=== PATIENT | male | born 1950 | race Hispanic/Latino ===

== ENCOUNTER 2020-02-25 03:29 | Observation (INO) | payer MEDICARE, OTHER ==
[~2020-02-25] VITALS: Ht 172.7 cm; Wt 91.6 kg
--- NOTE | 2020-02-25 03:34 | Emergency Department Note ---
History of Present Illnes History of Present Illness Chief Complaint: Respiratory History of Present Illness This is a 69 year old male returns to the ED for continued CP and SOB. Tanner gonsalez seen 02/22/2020 for same issue . Historian: Patient, Family Member Arrival Mode: Car History limited by: language barrier Veterinarian Assistant Required: Yes Onset (how long ago): day(s) (3) Radiation: Reports non-radiation Severity: moderate Onset quality: gradual Duration (how long): day(s) (3) Timing of current episode: constant Progression: worsening Chronicity: new Context: Reports recent illness Relieving factors: none Exacerbating factors: none Associated symptoms: Reports shortness of breath Previous service: re-evaluation Past Medical/Family History Physician Review I have reviewed the patient's past medical and family history. Any updates have been documented here. Past Medical History Recent Fever: Yes Clinical Suspicion of Infectio: Yes New/Unexplained Change in Ment: No Past Medical History: None Past Surgical History: None Social History Smoking Cessation: Never Smoker Alcohol Use: None Review of Systems Review of Systems Constitutional: Denies fever EENTM: Reports no symptoms Cardiovascular: Denies chest pain Respiratory: Reports dyspnea Gastrointestinal: Reports no symptoms Genitourinary: Reports no symptoms Musculoskeletal: Reports no symptoms Integumentary: Reports no symptoms Neurological: Reports no symptoms Psychological: Reports no symptoms Endocrine: Reports no symptoms Hematological/Lymphatic: Reports no symptoms Physical Exam Related Data Allergies: Coded Allergies: No Known Allergies (Unverified , 02/25/20) Vital signs reviewed: Yes Physical Exam CONSTITUTIONAL Constitutional: Present diaphoretic, Present ill appearing HENT HENT: Present normocephalic, Present atraumatic, Present oropharynx cl ear/moist, Present nose normal HENT L/R: Present left ext ear normal, Present right ext ear normal EYES Eyes: Reports PERRL, Reports conjunctivae normal NECK Neck: Present ROM normal PULMONARY Pulmonary: Present effort normal, Present breath sounds normal CARDIOVASCULAR Cardiovascular: Present regular rhythm, Present heart sounds normal, Present capillary refill normal, Present normal rate, Present bradycardia GASTROINTESTINAL Abdominal: Present soft, Present nontender, Present bowel sounds normal GENITOURINARY Genitourinary: Present exam deferred SKIN Skin: Present warm, Present dry MUSCULOSKELETAL Musculoskeletal: Present ROM normal NEUROLOGICAL Neurological: Present alert, Present oriented x 3, Present no gross motor or sensory deficits PSYCHOLOGICAL Psychological: Present mood/affect normal, Present judgement normal Results Laboratory Lab results reviewed: Yes Imaging Imaging results reviewed: Yes Impressions [place] [id number] [place] [id number] Patient Name: HARMAN MUNIZ MR #: [id number] : 1950 Age/Sex: 69/M Req #: [id number] Adm Physician: Ordered by: FREDDY RAMIREZ DO Report #: [id number] Location: Room/Bed: Procedure: [id number] CT/CT BRAIN WO Exam Date: 02/25/20 Exam Time: 419 REPORT STATUS: Signed EXAMINATION: Head CT without contrast. HISTORY:Headache. COMPARISON:None. TECHNIQUE: Multidetector axial images were obtained from the foramen magnum to the vertex without contrast. The images were reconstructed using brain and bone algorithms. Thin section brain images were reformatted into coronal and sagittal planes. Dose modulation, iterative reconstruction, and/or weight based adjustment of the mA/kV was utilized to reduce the radiation dose to as low as reasonably achievable. Intravenous contrast: None IMAGE QUALITY: Suboptimal evaluation particularly at the level of skull base and posterior fossa structures due to streak artifacts. FINDINGS: Skull/scalp: No lytic or blastic. lesions. No surgical changes. Parenchyma: Nonspecific few, scattered supratentorial white matter hypodensity are likely related to small vessel ischemic changes. No acute hemorrhage, mass or acute major vascular territorial infarct. Arteries: No density suggestive of thrombosis. Dural sinuses: No abnormal density suggestive of thrombosis. Ventricles: No hydrocephalus or displacement. Extra-axial spaces: No abnormal density. Brain volume: Mild generalized cerebral volume loss. Craniocervical junction: No mass, Chiari malformation, or basilar invagination. Sella: No mass. Paranasal/mastoid sinuses: Imaged portions unremarkable. IMPRESSION: No acute intracranial abnormality. Mild supratentorial white matter microvascular ischemic changes. Mild generalized cerebral volume loss. Signed by: Dr. Leonela Murcia M.D. on 02/25/2020 5:36 AM Dictated By: LEONELA MURCIA MD 5 Transcribed By: CHUCKY on 02/25/20535 COPY TO: FREDDY RAMIREZ DO~ [place] [address] Patient Name: HARMAN MUNIZ MR #: [id number] : 1950 Age/Sex: 69/M Req #: [id number] Adm Physician: Ordered by: FREDDY RAMIREZ DO Report #: [id number] Location: ER Room/Bed: Procedure: [id number] DX/CHEST SINGLE (PORTABLE) Exam Date: Exam Time: REPORT STATUS: Signed EXAMINATION: CHEST SINGLE (PORTABLE) INDICATION: ^Y ^SOB COMPARISON: None FINDINGS: AP view TUBES and LINES: None. LUNGS: Lungs are well inflated. There is no evidence of pneumonia or pulmonary edema. PLEURA: No pleural effusion or pneumothorax. HEART AND MEDIASTINUM: The cardiomediastinal silhouette is unremarkable. BONES AND SOFT TISSUES: No acute osseous lesion. Soft tissues are unremarkable. UPPER ABDOMEN: No free air under the diaphragm. IMPRESSION: No acute thoracic abnormality. Signed by: Dr. Paul Turk MD on 02/25/2020 5:12 AM Dictated By: PAUL TURK MD 1 Transcribed By: CHUCKY on 02/25/20511 COPY TO: FREDDY RAMIREZ DO~ Procedures 12 Lead ECG Interpretation ECG Interpretation : ECG: ECG 1 Veterinarian Assistant: Interpreted by ED physician Date: Feb 25, 2020 Time: 03:58 Prior ECG tracings: reviewed Rhythm: sinus bradycardia Rate: bradycardia BPM: 52 Conduction: right bundle branch block ST segments normal: Yes T waves normal: No T waves flattening: V1 Clinical Impression: non-specific ECG Additional Comments unchanged from prior 2 ekgs Assessment & Plan Medical Decision Making MDM 69 yom presents with CP and dyspnea. CBC, CMP, Cardiac enzymes,EKG CXR to evaluate for PTX, PNA, CHF, ACS, and COVID-19 URI. Assessment & Plan Final Impression: (1) Dyspnea Depart Disposition: ADMITTED FREDDY RAMIREZ Feb 25, 2020 03:34
[2020-02-25] MEDS ORDERED: ASPIRIN 81 MG CHEW TAB PO ONE ×2 (03:45→05:30)
[2020-02-25 04:20] LABS: BASOPHILS % 0.5 % (0.0-1.0); EOSINOPHILS # (AUTO) 0.1 (0.0-0.4); EOSINOPHILS % 2.1 % (0.0-6.0); HEMATOCRIT 44.2 % (38.2-49.6); HEMOGLOBIN 15.1 g/dL (14.0-18.0); LYMPHOCYTES # (AUTO) 1.7 (1.0-3.2); LYMPHOCYTES % 30.4 % (18.0-39.1); MEAN CORPUSCULAR HEMOGLOBIN 30.6 pg (28-32); MEAN CORPUSCULAR HGB CONC 34.2 g/dL (31-35); MEAN CORPUSCULAR VOLUME 89.5 fL (81-99); MONOCYTES # (AUTO) 0.5 (0.2-0.8); NEUTROPHILS # (AUTO) 3.3 (2.1-6.9); NEUTROPHILS % 58.6 % (38.7-80.0); PLATELET COUNT 183 x10e3/uL (140-360); RED BLOOD COUNT 4.94 x10e6/uL (4.3-5.7); RED CELL DISTRIBUTION WIDTH 12.3 % (11.7-14.4)
--- OUTSIDE RECORDS SUMMARY | 2020-02-25 04:28 | XMS REPORT | Clinical Summary ---
Author Author [facility] Organization [facility] Address Unknown Phone Unavailable Care Team Providers Care Public Address Technician Name Role Phone PCP Unavailable Allergies No Known Allergies Medications End Date Status Medication Sig Dispensed Refills Start Date Active ibuprofen (MOTRIN) 800 mg Take 1 tablet 60 tablet 2 tabletIndications: by mouth 4 Cholesteatoma of left every 8 hours ear, H/O mastoidectomy, as needed for Otorrhea Pain. Active HYDROcodone-acetaminophen Take 2 120 tablet 0 (NORCO) 5-325 mg tablets by 4 tabletIndications: mouth every 4 Hearing loss hours as needed for Pain. Active naproxen (NAPROSYN) 375 Take 1 tablet 60 tablet 0 06/22/201 mg tabletIndications: by mouth 2 4 Cholesteatoma of left times daily ear, H/O mastoidectomy, (with meals). Hearing loss Active acetaminophen (TYLENOL) Take 650 mg 0 325 mg tablet by mouth Before meals as needed for Pain. Active traMADol (ULTRAM) 50 mg Take 1 tablet 30 tablet 0 tabletIndications: by mouth 6 Otalgia of left ear every 6 hours as needed for Pain. 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 HLD (hyperlipidemia) 04/23/2013 Immunizations Name Administration Dates Next Due Influenza Vaccine 04/23/2013 Tdap Tetanus, diphtheria, 04/23/2013 (Deferred: Too early to give - pt acellular pertussis states he rec'd it 1 year a go) Vaccine Family History Medical History Relation Name Comments Unknown Fam Hx Relation Name Status Comments Brother Alive Brother Alive Brother Alive Brother Alive Daughter Alive Daughter Alive Father Grandchild Alive Grandchild Alive Grandchild Alive Grandchild Alive Grandchild Alive Grandchild Alive Grandchild Alive Grandchild Alive Grandchild Alive Grandchild Alive Grandchild Alive Grandchild Alive Maternal Grandfather Maternal Grandmother Mother Paternal Grandfather Paternal Grandmother Sister Alive Sister Alive Sister Alive Sister Alive Sister Alive Sister Alive Sister Alive Son Alive Social History Date Tobacco Use Types Packs/Day Years Used Never Smoker Smokeless Tobacco: Never Used Tobacco Cessation: Counseling Given: No Drinks/Week oz/Week Comments Alcohol Use Yes Sex Assigned at Date Recorded Not on file Industry Job Start Date Occupation Not on file Not on file Not on file Travel End Travel History Travel Start No recent travel history available. Last Filed Vital Signs Not on file Plan of Treatment Health Maintenance Due Date Last Done Comments Colorectal Cancer Scrn 2000 Annual (FIT/FOBT) Age 50 to 75 IMM Pneumococcal Age 65 11/19/2015 and Up Results Not on fileafter 02/24/2019 Insurance Type Payer Benefit Subscriber ID Effective Phone Address Plan / Dates Group [facility] xxxxxxxxx 2017-P [phone] [address] [place]ICARE [place] [id number] [place] [address] [place] [id number] xxxxxxxxx 2013-P [phone] [address] resent [id number], [place] BENEFICIAR [phone] Y
--- OUTSIDE RECORDS SUMMARY | 2020-02-25 04:29 | XMS REPORT | Continuity of Care Document ---
Author Author [facility] t Organization [facility] Address [address] [place] [address] Phone Unavailable Care Team Providers Care Coordinator Skill Training Program Name Role Phone MARK HAMMOND, MD Brigitte PEDROZA PCP Dewayne WATT Attphys Unavailable Alejandro CONLEY Attphys Unavailable JARRETT ROBBINS M.D. Attphys Unavailable MIHAELA BALLARD Attphys Unavailable Payers Payer Name Policy Type Policy Number Effective Date Expiration Date Alejandro nina [facility] Medicare Complete [id number] [facility] Medicare A & B [id number] [facility] [id number] 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 Disease Ac tive 2013-10-19 00:00:00 [facility] HLD (hyperlipidemia) HLD (hyperlipidemia) Disease Active 00:00:00 [facility] History of Known health problems: none History of Known heal th problems: none Problem Resolved [facility] Encounter for mastoidectomy cavity debridement Encount er for mastoidectomy cavity debridement Problem Active [facility] Otalgia of left ear Otalgia of left ear Problem Active [facility] Impacted cerumen of left ear Impacted cerumen of left ear Problem Active [facility] Thyroid nodule Thyroid nodule Problem Active [facility] Chronic otitis externa Chronic otitis externa Problem Active [facility] Sensation of plugged ear on left side Sensation of plugged e ar on left side Problem Active [facility] Concussion Problem Active [facility] Post-traumatic headache Problem Active [facility] Dyspnea Problem Active [facility] Pleural effusion Problem Active [facility] Liver nodule Problem Active [facility] Lung nodule Problem Active [facility] Allergies, Adverse Reactions, Alerts Allergy Name Allergy Type Status Severity Reaction(s) Onset Date Inacti ve Date Treating Clinician Comments Source No Known Allergies DA Active U 2019-02-05 00:00:00 [facility] No Known Allergies DA Active U 2019-01-30 00:00:00 [facility] Family History Family Member Diagnosis Comments Start Date Stop Date Source unknown Unknown Fam Hx [facility] Social History Social Habit Start Date Stop Date Quantity Comments Source Sex Assigned At [facility] Alcohol intake 2017-05-01 00:00:00 2017-05-01 00:00:00 Current drinker of alcohol (finding) [facility] Smoking Status Start Date Stop Date Source Former smoker [facility] Never smoker [facility] Medications Ordered Medication Name Filled Medication Name Start Date Stop Da te Current Medication? Ordering Clinician Indication Dosage Frequency Signature (SIG) Comments Components Source Butalbital/Aspirin/Caffeine (Fiorinal 50-325-40 Mg Cap jose daniel) 1 Each CAPSULE Butalbital/Aspirin/Caffeine (Fiorinal 50-325-40 Mg Capsule) 1 Each CAPSULE 2020-02-21 08:36:00 Yes 1 Every 8 Hours as n eeded for Headache [facility] Tramadol Hcl (Ultram) 50 Mg TABLET Tramadol Hcl (Ultram) 50 Mg TABLET 2020-02-21 08:36:00 Yes 50 Every 6 Ho urs as needed for Mild Pain (1-3) Or Fever>100.8 [facility] Ciprodex 0.3-0.1 % Otic Suspension Ciprodex 0.3-0.1 % Otic S uspension 2018-11-24 00:00:00 Yes JARRETT ROBBINS M.D. 3-4 drops to the a ffected ear BID [facility] acetaminophen (TYLENOL) 325 mg tablet 2015-09-27 12:12:54 Y es 650mg Take 650 mg by mouth Before meals as needed for Pain. [facility] traMADol (ULTRAM) 50 mg tablet 2015-08-09 00:00:00 Yes Otalgia of left ear 50mg Take 1 tablet by mouth every 6 hours as needed for Pain. [facility] naproxen (NAPROSYN) 375 mg tablet 2014-06-22 00:00:00 Ye s Hearing loss 375mg Take 1 tablet by mouth 2 times daily (with meals). [facility] HYDROcodone-acetaminophen (NORCO) 5-325 mg tablet 2014-03-26 00:00:00 Yes Hearing loss 2{tbl} Take 2 tablets by mouth every 4 hours as needed for Pain. [facility] ibuprofen (MOTRIN) 800 mg tablet 2013-11-10 00:00:00 Yes Otorrhea 800mg Take 1 tablet by mouth every 8 hours as needed for Pain. [facility] Immunizations Ordered Immunization Name Filled Immunization Name Date Status Comments Source Influenza Vaccine 2013-04-23 00:00:00 Completed [facility] Vital Signs Vital Name Observation Time Observation Value Comments Source Body Temperature 2020-02-22 22:38:00 98.6 [degF] [facility] Weight 2020-02-22 18:06:00 204 [lb_av] [facility] BMI (Body Mass Index) 2020-02-22 18:06:00 35.0 kg/m2 [facility] Weight 2020-02-21 23:50:00 204 [lb_av] [facility] BMI (Body Mass Index) 2020-02-21 23:50:00 35.0 kg/m2 [facility] Weight 2020-02-21 07:32:00 204 [lb_av] [facility] BMI (Body Mass Index) 2020-02-21 07:32:00 35.0 kg/m2 [facility] BP Systolic 2019-05-28 11:01:00 143 mm[Hg] Location: [place]; [place] on: Sitting [facility] BP Diastolic 2019-05-28 11:01:00 81 mm[Hg] Location: [place] on: Sitting [facility] Height 2019-05-28 11:01:00 70 [in_us] [facility] Weight 2019-05-28 11:01:00 205.5625 [lb_av] [facility] Body Mass Index Calculated 2019-05-28 11:01:00 29.5 kg/m2 [facility] Heart Rate 2019-05-28 11:01:00 84 /min [facility] Weight 2019-03-24 16:07:00 201.3125 [lb_av] [facility] Body Mass Index Calculated 2019-03-24 16:07:00 28.89 kg/m2 [facility] Height 2019-03-24 16:07:00 70 [in_us] [facility] BP Systolic 2018-11-20 10:51:00 127 mm[Hg] Location: [place]; [place] on: Sitting [facility] BP Diastolic 2018-11-20 10:51:00 74 mm[Hg] Location: [place]; [place] on: Sitting [facility] Height 2018-11-20 10:51:00 70 [in_us] [facility] Weight 2018-11-20 10:51:00 204.8 [lb_av] [facility] Body Mass Index Calculated 2018-11-20 10:51:00 29.39 kg/m2 [facility] Heart Rate 2018-11-20 10:51:00 77 /min [facility] BP Systolic 2018-07-03 13:29:00 127 mm[Hg] Location: [place] [facility] BP Diastolic 2018-07-03 13:29:00 72 mm[Hg] Location: [place] [facility] Height 2018-07-03 13:29:00 70 [in_us] [facility] Weight 2018-07-03 13:29:00 208 [lb_av] [facility] Body Mass Index Calculated 2018-07-03 13:29:00 29.85 kg/m2 [facility] Temperature 2018-07-03 13:29:00 98 [degF] Method: Oral [facility] Heart Rate 2018-07-03 13:29:00 65 /min Location: [place] Brachial Artery; [facility] BP Systolic 2018-03-13 14:58:00 129 mm[Hg] Location: [place]; [place] on: Sitting [facility] BP Diastolic 2018-03-13 14:58:00 70 mm[Hg] Location: [place]; [place] on: Sitting [facility] Height 2018-03-13 14:58:00 70 [in_us] [facility] Weight 2018-03-13 14:58:00 204.5 [lb_av] [facility] Body Mass Index Calculated 2018-03-13 14:58:00 29.34 kg/m2 [facility] Heart Rate 2018-03-13 14:58:00 65 /min [facility] BP Systolic 2018-03-06 10:30:00 135 mm[Hg] Location: [place]: Sitting [facility] BP Diastolic 2018-03-06 10:30:00 71 mm[Hg] Location: [place]; [place] on: Sitting [facility] Height 2018-03-06 10:30:00 70 [in_us] [facility] Weight 2018-03-06 10:30:00 206 [lb_av] [facility] Body Mass Index Calculated 2018-03-06 10:30:00 29.56 kg/m2 [facility] Heart Rate 2018-03-06 10:30:00 65 /min [facility] BP Systolic 2017-12-12 13:30:00 112 mm[Hg] Location: [place]; [place] on: Sitting [facility] BP Diastolic 2017-12-12 13:30:00 66 mm[Hg] Location: [place]; [place] on: Sitting [facility] Height 2017-12-12 13:30:00 70 [in_us] [facility] Weight 2017-12-12 13:30:00 209.125 [lb_av] [facility] Body Mass Index Calculated 2017-12-12 13:30:00 30.01 kg/m2 [facility] Heart Rate 2017-12-12 13:30:00 71 /min [facility] BP Systolic 2017-07-18 11:25:00 133 mm[Hg] Location: [place]; [place] on: Sitting [facility] BP Diastolic 2017-07-18 11:25:00 75 mm[Hg] Location: [place]; [place] on: Sitting [facility] Height 2017-07-18 11:25:00 70 [in_us] [facility] Weight 2017-07-18 11:25:00 203 [lb_av] [facility] Body Mass Index Calculated 2017-07-18 11:25:00 29.13 kg/m2 [facility] Heart Rate 2017-07-18 11:25:00 69 /min [facility] Respiration Rate 2017-07-18 11:25:00 16 /min [facility] Procedures Procedure Date / Time Performed Performing Clinician Sour e Computed tomography of chest without contrast 2020-02-22 00:00:0 0 [facility] Computed tomography of brain without radiopaque contrast 2020-01 00:00:00 [facility] [place] [id number] 2018-07-03 00:00:00 [facility] History of Ear Surgery [facility] History of Hernia Repair Inguinal Sliding [facility] History of Sinus Surgery [facility] Plan of Care Planned Activity Planned Date Details Comments Source Diagnostic Test Pending 2018-07-03 00:00:00 [place] [id number] [code = 07652] [facility] Diagnostic Test Pending 2018-07-03 00:00:00 [place] [id number] [code = 78596] [facility] Future Scheduled Test 2015-11-19 00:00:00 IMM Pneumococcal A ge 65 and Up [code = IMM Pneumococcal Age 65 and Up] [facility] Future Scheduled Test 2000 00:00:00 Screening for kenyon gnant neoplasm of colon (procedure) [code = 729907588] [facility] Instructions Dyspnea [facility] Instructions Pleural Effusion [facility] Encounters Start Date/Time End Date/Time Encounter Type Admission Type [facility] Care Department Encounter ID Source 2020-02-22 18:17:00 2020-02-22 22:45:00 Departed Emergency Room 1 WATTJARRETT [facility] [id number] [facility] 2020-02-21 23:54:00 2020-02-22 00:51:00 Departed Emergency Room [id number] [facility] 2020-02-21 08:08:00 2020-02-21 09:00:00 Departed Emergency Room 1 YOUSIF CONLEY [facility] [id number] [facility] 2019-05-28 10:30:00 2019-05-28 10:30:00 Appointment; JARRETT ROBBINS M.D. BYRD, MICHAEL, M.D. [facility] Otorhinolaryngology [facility] [id number] [facility] 2019-03-24 14:30:00 2019-03-24 14:30:00 Appointment; JARRETT ROBBINS M.D. BYRD, MICHAEL, M.D. [facility] Otorhinolaryngology [facility] [id number] [facility] 2019-03-18 04:22:00 2019-03-18 07:30:00 Departed Emergency Room 1 WATTJARRETT [facility] [id number] [facility] 2019-02-25 02:56:00 2019-02-25 04:55:00 Departed Emergency Room 1 WATTJARRETT MARCELO [facility] [id number] [facility] 2019-01-01 13:00:2019-01-01 13:00:00 Appointment; JARRETT ROBBINS M.D. BYRD, MICHAEL, M.D. [facility] [id number] [facility] 2018-11-20 10:30:00 2018-11-20 10:30:00 Appointment; JARRETT ROBBINS M.D. BYRD, MICHAEL, M.D. [facility] [address] [id number] [facility] 2018-09-22 08:50:00 2018-10-21 23:59:00 Discharged Recurring [facility] [id number] [facility] 2018-08-22 11:14:00 2018-09-21 23:59:00 Discharged Recurring [facility] [id number] [facility] 2018-07-29 10:06:00 2018-08-21 23:59:00 Discharged Recurring [facility] [id number] [facility] 2018-08-19 14:52:00 2018-08-19 14:52:00 Registered Clinic 3 MIHAELA BALLARD [facility] [id number] [facility] 2018-07-03 13:00:00 2018-07-03 13:00:00 Appointment; JARRETT ROBBINS M.D. BYRD, MICHAEL, M.D. [facility] Otorhinolaryngology [place] [id number] [facility] 2018-03-13 14:30:00 2018-03-13 14:30:00 Appointment; JARRETT ROBBINS M.D. BYRD, MICHAEL, M.D. [facility] [id number] [facility] 2018-03-06 10:30:00 2018-03-06 10:30:00 Appointment; JARRETT ROBBINS M.D. BYRD, MICHAEL, M.D. [facility] [address] [id number] [facility] 2017-12-12 13:45:00 2017-12-12 13:45:00 Appointment; JARRETT ROBBINS M.D. BYRD, MICHAEL, M.D. [facility] [id number] [facility] 2017-12-09 10:26:00 2017-12-09 10:26:00 Registered Emergency Room [facility] [id number] [facility] 2017-10-11 10:30:00 2017-10-11 10:30:00 Appointment; JARRTET ROBBINS M.D. BYRD, MICHAEL, M.D. [facility] UTP [id number] [facility] 2017-08-02 00:00:00 2017-08-02 00:00:00 Outpatient [facility] [id number] [facility] 2017-07-18 11:00:00 2017-07-18 11:00:00 Appointment; JARRETT ROBBINS M.D. BYRD, MICHAEL, M.D. [facility] [id number] [facility] 2017-05-01 11:13:40 2017-05-01 11:13:40 Outpatient [facility] [id number] [facility] 2017-05-01 11:05:25 2017-05-01 11:05:25 Outpatient [facility] [id number] [facility] 2017-04-12 09:30:00 2017-04-12 09:30:00 Appointment; JARRETT ROBBINS M.D. BYRD, MICHAEL, M.D. [facility] [id number] [facility] 2017-02-14 14:04:40 2017-02-14 14:04:40 Outpatient [facility] [id number] [facility] 2016-07-27 15:45:00 2016-07-27 15:45:00 Appointment; JARRETT ROBBINS M.D. BYRD, MICHAEL, M.D. [facility] [id number] [facility] 2016-02-03 11:00:00 2016-02-03 11:00:00 Appointment; JARRETT ROBBINS M.D. BYRD, MICHAEL, M.D. [facility] [id number] [facility] 2015-07-29 10:30:00 2015-07-29 10:30:00 Appointment; JARRETT ROBBINS M.D. BYRD, MICHAEL, M.D. [facility] [id number] [facility] Results Test Description Test Time Test Comments Results Result Comments Source CT CHEST WO 2020-02-22 22:11:00 [facility] [place] [address] Patient Name: HARMAN SHEN MR #: [id number] : 1950 Age/Sex: 69/M Req #: [id number] Adm Physician: Ordered by: JARRETT WATT MD Report #: [id number] Location: ER Room/Bed: Procedure: [id number] CT/CT CHEST WO Exam Date: 02/22/20 Exam Time: 2053 REPORT STATUS: Signed EXAM: CT Chest WITHOUT contrast INDICATION: eval findings on cxr Y COMPARISON: Same day chest x-ray TECHNIQUE: Chest was scanned utilizing a multidetector helical scanner from the lung apex through the level of the adrenal glands without administration of IV contrast. Absence of intravenous contrast decreases sensitivity for detection of lymphadenopathy and vascular pathology. Coronal and sagittal reformations were obtained. Routine protocol was performed. IV CONTRAST: None COMPLICATIONS: None RADIATION DOSE: Total DLP: 505.76 mGy*cm Estimated effective dose: (DLP x 0.014 x size factor) mSv CTDIvol has been reviewed. It is below the limits set by the Radiation Protocol Committee (RPC). FINDINGS: LINES/ TUBES: None. LUNGS AND AIRWAYS: Mild bibasilar linear atelect asis/scarring. 9 mm right basilar nodule (series 3, image 75). Airways are normal. PLEURA: Trace right pleural effusion. HEART AND MEDIASTINUM: The thyroid gland is normal. No mediastinal, hilar or axillary lymphadenopathy. The heart is borderline in size.. There is no pericardial effusion. Atherosclerotic calcification of aorta and coronary arteries. Main pulmonary artery measures 3.2 cm, suggestive of pulmonary hypertension. UPPER ABDOMEN: Heterogeneous liver parenchyma, related to areas of fat deposition. There are multiple ill-defined left hepatic lobe hypodensities measuring up to 1.5 cm which cannot be characterized on this unenhanced study. BONES: Old fracture deformities of posterior left 10th and 11th ribs. SOFT TISSUES: Unremarkable. IMPRESSION: 1. Trace right pleural effusion. 2. 9 mm right basilar lung nodule. Recommend further evaluation with PET/CT or short-term follow-up in 3 months. 3. Heterogeneous steatotic liver. Ther e are also left hepatic lobe hypodensities which cannot be characterized on this unenhanced study. Recommend nonurgent liver mass protocol MRI for further evaluation. Signed by: Dr. Paul Turk MD on 02/22/2020 10:22 PM Dictated By: PAUL TURK MD 21 Transcribed By: CHUCKY on 02/22/202221 COPY TO: JARRETT WATT MD CHEST SINGLE (PORTABLE) 2020-02-22 19:42:00 [place] [address] Patient Name: HARMAN SHEN MR #: [id number] : 1950 Age/Sex: 69/M Req #: [id number] Adm Physician: Ordered by: JARRETT WATT MD Report #: [id number] Location: ER Room/Bed: Procedure: [id number] DX/CHEST SINGLE (PORTABLE) Exam Date: 02/22/20 Exam Time: 1855 REPORT STATUS: Signed EXAMINATION: CHEST SINGLE (PORTABLE) INDICATION: SHORT OF BREATH COMPARISON: Multiple prior chest x-ray examinations most recent dated 02/21/2020. FINDINGS: AP view TUBES and LINES: None. . LUNGS/PLEURA: Lungs are well inflated. There is no evidence of pneumonia or pulmonary edema.. There is new obscuration of the right costophrenic angles which could be due to effusion and or atelectasis. HEART AND MEDIASTINUM: The cardiomediastinal silhouette is unremarkable. BONES AND SOFT TISSUES: No acute osseous lesion. Soft tissues are unremarkable. UPPER ABDOMEN: No free air under the diaphragm. IMPRESSION: New obscuration of the right costophrenic angles which could be due to effusion and or atelectasis. Signed by: Kvng Santamaria MD on 02/22/2020 7:44 PM Dictated By: KVNG SANTAMARIA MD 43 Transcribed By: CHUCKY on 02/22/201943 COPY TO: JARRETT WATT MD Blood leukocytes automated count (number/volume) 2020-02-22 18:27:00 Test Item White Blood Count (test code = 6690-2) 5.67 4.8-10.8 [facility] (number/volume)2020-02-22 18:27:00* Test Item Value Reference Range Interpretation Comments Red Blood Count (test code = 789-8) 4.67 4.3-5.7 [facility] measurement (moles/volume)2020-02-22 18:27:00* Test Item Value Reference Range Interpretation Comments Hemoglobin (test code = 11839-6) 14.2 14.0-18.0 [facility] hematocrit (volume fraction)2020-02-22 18:27:00* Test Item Value Reference Range Interpretation Comments Hematocrit (test code = 4544-3) 42.6 38.2-49.6 [facility] eryth[facility] mean corpuscular [id number] 18:27:00* Test Item Value Reference Range Interpretation Comments Mean Corpuscular Volume (test code = 787-2) 91.2 81-99 [facility] mean corpuscular hemoglobin (mass per erythrocyte)2020-02-22 18:27:00* Test Item Value Reference Range Interpretation Comments Mean Corpuscular Hemoglobin (test code = 785-6) 30.4 28-32 [facility] eryth[facility] mean corpuscular hemoglobin concentration measurement (mass/volume)2020-02-22 18:27:00* Test Item Value Reference Range Interpretation Comments Mean Corpuscular Hemoglobin Concent (test code = 786-4) 33.3 31-35 [facility] HospitalRDW [id number] 18:27:00* Test Item Value Reference Range Interpretation Comments Red Cell Distribution Width (test code = 83316-1) 12.5 11.7 -14.4 [facility] platelet count (count/volume)2020-02-22 18:27:00* Test Item Value Reference Range Interpretation Comments Platelet Count (test code = 777-3) 163 140-360 [facility] segmented neutrophil count as percentage of total [id number] 18:27:00* Test Item Value Reference Range Interpretation Comments Neutrophils (%) (Auto) (test code = 33065-2) 58.8 38.7-80.0 [facility] lymphocyte count as percentage ot total [id number] 18:27:00* Test Item Value Reference Range Interpretation Comments Lymphocytes (%) (Auto) (test code = 736-9) 29.3 18.0-39.1 [facility] monocyte count as percentage of total [id number] 18:27:00* Test Item Value Reference Range Interpretation Comments Monocytes (%) (Auto) (test code = 5905-5) 9.2 4.4-11.3 [facility] eosinophil count as percentage of total [id number] 18:27:00* Test Item Value Reference Range Interpretation Comments Eosinophils (%) (Auto) (test code = 713-8) 1.9 0.0-6.0 [facility] basophil count as percentage of total icoajafjpz2275-00-04 18:27:00* Test Item Value Reference Range Interpretation Comments Basophils (%) (Auto) (test code = 706-2) 0.4 0.0-1.0 [facility] HospitalFluoroscopic procedure less than one hour [id number] 18:27:00* Test Item Value Reference Range Interpretation Comments IM GRANULOCYTES % (test code = IM GRANULOCYTES %) 0.4 0.0- 1.0 [facility] neutrophil count 2020-02-22 18:27:00* Test Item Value Reference Range Interpretation Comments Neutrophils # (Auto) (test code = 751-8) 3.3 2.1-6.9 [facility] lymphocytes count (number/volume) 2020-02-22 18:27:00* Test Item Value Reference Range Interpretation Comments Lymphocytes # (Auto) (test code = 00345-8) 1.7 1.0-3.2 [facility] monocytes automated count (number/volume)2020-02-22 18:27:00* Test Item Value Reference Range Interpretation Comments Monocytes # (Auto) (test code = 742-7) 0.5 0.2-0.8 [facility] blood eosinophil count 2020-02-22 18:27:00* Test Item Value Reference Range Interpretation Comments Eosinophils # (Auto) (test code = 711-2) 0.1 0.0-0.4 [facility] blood basophil count (count/volume)2020-02-22 18:27:00* Test Item Value Reference Range Interpretation Comments Basophils # (Auto) (test code = 704-7) 0.0 0.0-0.1 [facility] HospitalFluoroscopic procedure less than one hour gwzizqvx0498-02-66 18:27:00* Test Item Value Reference Range Interpretation Comments Absolute Immature Granulocyte (auto (naty t code = Absolute Immature Granulocyte (auto) 0.02 0-0.1 [facility] sodium measurement (moles/volume)2020-02-22 18:27:00* Test Item Value Reference Range Interpretation Comments Sodium Level (test code = 2951-2) 137 136-145 [facility] potassium measurement (moles/volume)2020-02-22 18:27:00* Test Item Value Reference Range Interpretation Comments Potassium Level (test code = 2823-3) 3.9 3.5-5.1 [facility] chloride measurement (moles/volume)2020-02-22 18:27:00* Test Item Value Reference Range Interpretation Comments Chloride Level (test code = 2075-0) 105 98-107 [facility] carbon dioxide, total measurement (moles/volume)2020-02-22 18:27:00* Test Item Value Reference Range Interpretation Comments Carbon Dioxide Level (test code = 2028-9) 21 22-29 [facility] anion jyx1153-74-49 18:27:00* Test Item Value Reference Range Interpretation Comments Anion Gap (test code = 21040-2) 14.9 8-16 [facility] urea nitrogen measurement (mass/volume)2020-02-22 18:27:00* Test Item Value Reference Range Interpretation Comments Blood Urea Nitrogen (test code = 3094-0) 17 7-26 [facility] creatinine measurement (mass/volume)2020-02-22 18:27:00* Test Item Value Reference Range Interpretation Comments Creatinine (test code = 2160-0) 0.93 0.72-1.25 [facility] urea nitrogen/creatinine mass oorlw4076-13-24 18:27:00* Test Item Value Reference Range Interpretation Comments BUN/Creatinine Ratio (test code = 3097-3) 18 6-25 [facility] HospitalEstimated glomerular filtration rate (GFR) xpjynnjirbxtl5999-49-01 18:27:00* Test Item Value Reference Range Interpretation Comments Estimat Glomerular Filtration Rate (test code = 125520778) > 60 >60 Ranges were taken from the National Kidney Disease Education Program and the [place] [facility] literature.Reference ranges:60 or greater: Dmutww17-35 ( for 3 consecutive months): Chronic kidney disease 15 or less: Kidney failureAspire Behavioral Health HospitalGlucose sithbonxmec2274-82-56 18:27:00* Test Item Value Reference Range Interpretation Comments Glucose Level (test code = ASU8477) 148 74-118 [facility] calcium measurement (mass/volume)2020-02-22 18:27:00* Test Item Value Reference Range Interpretation Comments Calcium Level (test code = 39310-1) 8.8 8.4-10.2 [facility] creatine kinase measurement (enzymatic activity/volume)2020-02-22 18:27:00* Test Item Value Reference Range Interpretation Comments Creatine Kinase (test code = 2157-6) 53 30-200 [facility] creatine kinase MB measurement (mass/volume)2020-02-22 18:27:00* Test Item Value Reference Range Interpretation Comments Creatine Kinase MB (test code = 92961-8) 1.10 0-5.0 [facility] HospitalTroponin I measurement by highly sensitive enzyme tiatpjmafhm2467-73-86 18:27:00* Test Item Value Reference Range Interpretation Comments Troponin I (test code = 69722-7) 0.005 0-0.300 [facility] HospitalCT BRAIN RG0254-58-00 08:45:00 [place] [address] Patient Name: HARMAN SHEN MR #: [id number] : 1950 Age/Sex: 69/M Req #: [id number] Adm Physician: Ordered by: YOUSIF CONLEY DO Report #: [id number] Location: ER Room/Bed: Procedure: [id number] CT/CT BRAIN WO Exam Date: 02/21/20 Exam Time: 0812 REPORT STATUS: Signed Examination: CT head wi thout contrast Clinical Indication: Headache; head injury. Technique: Transa xial noncontrast images from the skull base through the vertex were obtained. Sagittal and coronal reformatted images were done. Dose modulation, iterative reconstruction, and/or weight based adjustment of the mA/kV was utilized to re duce the radiation dose to as low as reasonably achievable. Comparison: Non e. Findings: Scalp: No abnormalities. Bones: Intact. No fractures. No blastic or lytic lesions. Brain sulci: Mild volume loss for patient's a ge. Ventricles: No hydrocephalus. Extra-axial space: No abnormalities. Parenchyma: There are patchy and confluent areas of low-attenuation wit hin subcortical and periventricular white matter, nonspecific, but could repre sent microvascular ischemic disease. No masses, hemorrhage, or acute or crude unit operator dario cortical based vascular insults. Suprasellar region: No abnormalities. Craniocervical junction: The foramen magnum is patent. No Chiari one malfor mation. Incidental findings: Atherosclerotic calcification of the cavern ous and supraclinoid internal carotid arteries. Impression: 1. No a cute intracranial finding. 2. Mild chronic microvascular ischemic change a nd volume loss. Signed by: Dr. Juan Carlos Sheffield M.D. on 02/21/2020 8:48 AM Dictated By: JUAN CARLOS TESFAYE MD 0848 Transcribed By: CHUCKY on 02/21/20 084 8 COPY TO: YOUSIF CONLEY DO CHEST SINGLE (PORTABLE)2020-02-21 08:16:00 [place] [address] Patient Name: HARMAN MUNIZ MR #: [id number] : 1950 Age/Sex: 69/M Req #: [id number] Adm Physician: Ordered by: YOUSIF CONLEY DO Report #: [id number] Location: ER Room/Bed: Procedure: [id number] DX/CHES T SINGLE (PORTABLE) Exam Date: 02/21/20 Exam Time: 0 812 REPORT STATUS: Signed EXAMIN ATION: CHEST SINGLE (PORTABLE) INDICATION: Shortness of breath and hea d trauma COMPARISON: Multiple prior radiographs including most recent on . FINDINGS: TUBES and LINES: None. LUNGS: Low lung volumes and bronchovascular crowding No consolidations. There is bibasil ar atelectasis. PLEURA: No pleural effusion or pneumothorax. HEART A ND MEDIASTINUM: The cardiomediastinal silhouette is unremarkable. BONE S AND SOFT TISSUES: No acute osseous lesion. Soft tissues are unremarkable. UPPER ABDOMEN: No free air under the diaphragm. IMPRESSION: Low lung volumes and bronchovascular crowding with bibasilar atelectasis. No r adiographic evidence of an acute cardiopulmonary process. Signed by: Antonio Barkley MD on 02/21/2020 8:17 AM Dictated By: YAQUELIN BARKLEY MD [facility] [place] Signed By: YAQUELIN BARKLEY MD on 02/21/20816 Transcribed By: CHUCKY on 02/21/20816 COPY TO: YOUSIF CONLEY DO Blood leukocytes automated count (number/volume)2020-02-21 07:44:00* Test Item Value Reference Range Interpretation Comments White Blood Count (test code = 6690-2) 5.29 4.8-10.8 [facility] HospitalBlood erythrocytes automated count (number/volume)2020-02-21 07:44:00* Test Item Value Reference Range Interpretation Comments Red Blood Count (test code = 789-8) 4.68 4.3-5.7 [facility] HospitalBlood hemoglobin measurement (moles/volume)2020-02-21 07:44:00* Test Item Value Reference Range Interpretation Comments Hemoglobin (test code = 18456-8) 14.2 14.0-18.0 [facility] HospitalAutomated blood hematocrit (volume fraction)2020-02-21 07:44:00* Test Item Value Reference Range Interpretation Comments Hematocrit (test code = 4544-3) 42.6 38.2-49.6 [facility] HospitalAutomated erythrocyte mean corpuscular cqoolb1556-90-60 07:44:00* Test Item Value Reference Range Interpretation Comments Mean Corpuscular Volume (test code = 787-2) 91.0 81-99 [facility] HospitalAutomated erythrocyte mean corpuscular hemoglobin (mass per erythrocyte)2020-02-21 07:44:00* Test Item Value Reference Range Interpretation Comments Mean Corpuscular Hemoglobin (test code = 785-6) 30.3 28-32 [facility] HospitalAutomated erythrocyte mean corpuscular hemoglobin concentration measurement (mass/volume)2020-02-21 07:44:00* Test Item Value Reference Range Interpretation Comments Mean Corpuscular Hemoglobin Concent (test code = 786-4) 33.3 31-35 [facility] HospitalRDW OzpLi-Gqi2665-27-30 07:44:00* Test Item Value Reference Range Interpretation Comments Red Cell Distribution Width (test code = 90550-7) 12.7 11.7 -14.4 [facility] HospitalAutomated blood platelet count (count/volume)2020-02-21 07:44:00* Test Item Value Reference Range Interpretation Comments Platelet Count (test code = 777-3) 147 140-360 [facility] HospitalAutomated blood segmented neutrophil count as percentage of total xvecaesuwq8753-09-39 07:44:00* Test Item Value Reference Range Interpretation Comments Neutrophils (%) (Auto) (test code = 44492-0) 63.8 38.7-80.0 [facility] HospitalAutomated blood lymphocyte count as percentage ot total fqqotslkze4367-69-77 07:44:00* Test Item Value Reference Range Interpretation Comments Lymphocytes (%) (Auto) (test code = 736-9) 25.9 18.0-39.1 [facility] HospitalAutomated blood monocyte count as percentage of total jdaccygevr4306-25-50 07:44:00* Test Item Value Reference Range Interpretation Comments Monocytes (%) (Auto) (test code = 5905-5) 7.6 4.4-11.3 [facility] HospitalAutomated blood eosinophil count as percentage of total bwlmirranp5393-86-43 07:44:00* Test Item Value Reference Range Interpretation Comments Eosinophils (%) (Auto) (test code = 713-8) 2.1 0.0-6.0 [facility] HospitalAutomated blood basophil count as percentage of total rwpblaelyx0989-02-60 07:44:00* Test Item Value Reference Range Interpretation Comments Basophils (%) (Auto) (test code = 706-2) 0.4 0.0-1.0 [facility] HospitalFluoroscopic procedure less than one hour xnpghyoq8406-30-93 07:44:00* Test Item Value Reference Range Interpretation Comments IM GRANULOCYTES % (test code = IM GRANULOCYTES %) 0.2 0.0- 1.0 [facility] HospitalAutomated blood neutrophil count 2020-02-21 07:44:00* Test Item Value Reference Range Interpretation Comments Neutrophils # (Auto) (test code = 751-8) 3.4 2.1-6.9 [facility] HospitalBlood lymphocytes count (number/volume) 2020-02-21 07:44:00* Test Item Value Reference Range Interpretation Comments Lymphocytes # (Auto) (test code = 76856-5) 1.4 1.0-3.2 [facility] HospitalBlood monocytes automated count (number/volume)2020-02-21 07:44:00* Test Item Value Reference Range Interpretation Comments Monocytes # (Auto) (test code = 742-7) 0.4 0.2-0.8 [facility] HospitalAutomated blood eosinophil count 2020-02-21 07:44:00* Test Item Value Reference Range Interpretation Comments Eosinophils # (Auto) (test code = 711-2) 0.1 0.0-0.4 [facility] HospitalAutomated blood basophil count (count/volume)2020-02-21 07:44:00* Test Item Value Reference Range Interpretation Comments Basophils # (Auto) (test code = 704-7) 0.0 0.0-0.1 [facility] HospitalFluoroscopic procedure less than one hour lwrsxibo5039-54-11 07:44:00* Test Item Value Reference Range Interpretation Comments Absolute Immature Granulocyte (auto (naty t code = Absolute Immature Granulocyte (auto) 0.01 0-0.1 [facility] sodium measurement (moles/volume)2020-02-21 07:44:00* Test Item Value Reference Range Interpretation Comments Sodium Level (test code = 2951-2) 138 136-145 [facility] potassium measurement (moles/volume)2020-02-21 07:44:00* Test Item Value Reference Range Interpretation Comments Potassium Level (test code = 2823-3) 4.0 3.5-5.1 [facility] chloride measurement (moles/volume)2020-02-21 07:44:00* Test Item Value Reference Range Interpretation Comments Chloride Level (test code = 2075-0) 106 98-107 [facility] carbon dioxide, total measurement (moles/volume)2020-02-21 07:44:00* Test Item Value Reference Range Interpretation Comments Carbon Dioxide Level (test code = 2028-9) 20 22-29 [facility] anion eky7719-42-02 07:44:00* Test Item Value Reference Range Interpretation Comments Anion Gap (test code = 47357-7) 16.0 8-16 [facility] urea nitrogen measurement (mass/volume)2020-02-21 07:44:00* Test Item Value Reference Range Interpretation Comments Blood Urea Nitrogen (test code = 3094-0) 13 7-26 [facility] creatinine measurement (mass/volume)2020-02-21 07:44:00* Test Item Value Reference Range Interpretation Comments Creatinine (test code = 2160-0) 0.99 0.72-1.25 [facility] urea nitrogen/creatinine mass mmuen4544-95-97 07:44:00* Test Item Value Reference Range Interpretation Comments BUN/Creatinine Ratio (test code = 3097-3) 13 6-25 [facility] HospitalEstimated glomerular filtration rate (GFR) xngzyzfcenyyx6314-38-22 07:44:00* Test Item Value Reference Range Interpretation Comments Estimat Glomerular Filtration Rate (test code = 632061819) > 60 >60 Ranges were taken from the National Kidney Disease Education Program and the [facility] literature.Reference ranges:60 or greater: Qdtfge22-11 ( for 3 consecutive months): Chronic kidney disease 15 or less: Kidney failureAspire Behavioral Health HospitalGlucose xtyvgpmaezt0096-06-45 07:44:00* Test Item Value Reference Range Interpretation Comments Glucose Level (test code = TWU6397) 269 74-118 [facility] calcium measurement (mass/volume)2020-02-21 07:44:00* Test Item Value Reference Range Interpretation Comments Calcium Level (test code = 56095-8) 8.7 8.4-10.2 [facility] total bilirubin measurement (mass/volume)2020-02-21 07:44:00* Test Item Value Reference Range Interpretation Comments Total Bilirubin (test code = 1975-2) 0.6 0.2-1.2 [facility] HospitalFluoroscopic procedure less than one hour zyiujyro2553-73-31 07:44:00* Test Item Value Reference Range Interpretation Comments Aspartate Amino Transf (AST/SGOT) (test code = Aspartate Amino Transf (AST/SGOT)) 20 5-34 [facility] alanine aminotransferase measurement (enzymatic activity/volume)2020-02-21 07:44:00* Test Item Value Reference Range Interpretation Comments Alanine Aminotransferase (ALT/SGPT) (test code = 1742-6) 28 0-55 [facility] protein measurement (mass/volume)2020-02-21 07:44:00* Test Item Value Reference Range Interpretation Comments Total Protein (test code = 2885-2) 6.4 6.5-8.1 [facility] albumin measurement (mass/volume)2020-02-21 07:44:00* Test Item Value Reference Range Interpretation Comments Albumin (test code = 1751-7) 3.5 3.5-5.0 [facility] HospitalPlasma globulin measurement (mass/volume) 2020-02-21 07:44:00* Test Item Value Reference Range Interpretation Comments Globulin (test code = 50198-5) 2.9 2.3-3.5 [facility] albumin/globulin mass asiaz6759-75-93 07:44:00* Test Item Value Reference Range Interpretation Comments Albumin/Globulin Ratio (test code = 1759-0) 1.2 0.8-2.0 [facility] alkaline phosphatase measurement (enzymatic activity/volume)2020-02-21 07:44:00* Test Item Value Reference Range Interpretation Comments Alkaline Phosphatase (test code = 6768-6) 69 40-150 [facility] HospitalBlood leukocytes automated count (number/volume)2020-02-21 07:44:00* Test Item Value Reference Range Interpretation Comments White Blood Count (test code = 6690-2) 5.29 4.8-10.8 [facility] HospitalBlood erythrocytes automated count (number/volume)2020-02-21 07:44:00* Test Item Value Reference Range Interpretation Comments Red Blood Count (test code = 789-8) 4.68 4.3-5.7 [facility] HospitalBlood hemoglobin measurement (moles/volume)2020-02-21 07:44:00* Test Item Value Reference Range Interpretation Comments Hemoglobin (test code = 97090-4) 14.2 14.0-18.0 [facility] HospitalAutomated blood hematocrit (volume fraction)2020-02-21 07:44:00* Test Item Value Reference Range Interpretation Comments Hematocrit (test code = 4544-3) 42.6 38.2-49.6 [facility] HospitalAutomated erythrocyte mean corpuscular urcrxb5087-89-41 07:44:00* Test Item Value Reference Range Interpretation Comments Mean Corpuscular Volume (test code = 787-2) 91.0 81-99 [facility] HospitalAutomated erythrocyte mean corpuscular hemoglobin (mass per erythrocyte)2020-02-21 07:44:00* Test Item Value Reference Range Interpretation Comments Mean Corpuscular Hemoglobin (test code = 785-6) 30.3 28-32 [facility] HospitalAutomated erythrocyte mean corpuscular hemoglobin concentration measurement (mass/volume)2020-02-21 07:44:00* Test Item Value Reference Range Interpretation Comments Mean Corpuscular Hemoglobin Concent (test code = 786-4) 33.3 31-35 [facility] HospitalRDW CvjKl-Acq5398-85-30 07:44:00* Test Item Value Reference Range Interpretation Comments Red Cell Distribution Width (test code = 91419-4) 12.7 11.7 -14.4 [facility] HospitalAutomated blood platelet count (count/volume)2020-02-21 07:44:00* Test Item Value Reference Range Interpretation Comments Platelet Count (test code = 777-3) 147 140-360 [facility] HospitalAutomated blood segmented neutrophil count as percentage of total tpbqrbrbwh5532-75-78 07:44:00* Test Item Value Reference Range Interpretation Comments Neutrophils (%) (Auto) (test code = 73438-6) 63.8 38.7-80.0 [facility] HospitalAutomated blood lymphocyte count as percentage ot total cwloigslul4352-70-69 07:44:00* Test Item Value Reference Range Interpretation Comments Lymphocytes (%) (Auto) (test code = 736-9) 25.9 18.0-39.1 [facility] HospitalAutomated blood monocyte count as percentage of total metyaitgkh5774-11-33 07:44:00* Test Item Value Reference Range Interpretation Comments Monocytes (%) (Auto) (test code = 5905-5) 7.6 4.4-11.3 [facility] HospitalAutomated blood eosinophil count as percentage of total cpsiaqewrq8140-05-92 07:44:00* Test Item Value Reference Range Interpretation Comments Eosinophils (%) (Auto) (test code = 713-8) 2.1 0.0-6.0 [facility] HospitalAutomated blood basophil count as percentage of total csndegpvid5612-90-58 07:44:00* Test Item Value Reference Range Interpretation Comments Basophils (%) (Auto) (test code = 706-2) 0.4 0.0-1.0 [facility] HospitalFluoroscopic procedure less than one hour hsoaafyt9671-76-56 07:44:00* Test Item Value Reference Range Interpretation Comments IM GRANULOCYTES % (test code = IM GRANULOCYTES %) 0.2 0.0- 1.0 [facility] HospitalAutomated blood neutrophil count 2020-02-21 07:44:00* Test Item Value Reference Range Interpretation Comments Neutrophils # (Auto) (test code = 751-8) 3.4 2.1-6.9 [facility] HospitalBlood lymphocytes count (number/volume) 2020-02-21 07:44:00* Test Item Value Reference Range Interpretation Comments Lymphocytes # (Auto) (test code = 39970-9) 1.4 1.0-3.2 [facility] HospitalBlood monocytes automated count (number/volume)2020-02-21 07:44:00* Test Item Value Reference Range Interpretation Comments Monocytes # (Auto) (test code = 742-7) 0.4 0.2-0.8 [facility] HospitalAutomated blood eosinophil count 2020-02-21 07:44:00* Test Item Value Reference Range Interpretation Comments Eosinophils # (Auto) (test code = 711-2) 0.1 0.0-0.4 [facility] HospitalAutomated blood basophil count (count/volume)2020-02-21 07:44:00* Test Item Value Reference Range Interpretation Comments Basophils # (Auto) (test code = 704-7) 0.0 0.0-0.1 [facility] HospitalFluoroscopic procedure less than one hour kjzpddrt0920-76-01 07:44:00* Test Item Value Reference Range Interpretation Comments Absolute Immature Granulocyte (auto (naty t code = Absolute Immature Granulocyte (auto) 0.01 0-0.1 [facility] sodium measurement (moles/volume)2020-02-21 07:44:00* Test Item Value Reference Range Interpretation Comments Sodium Level (test code = 2951-2) 138 136-145 [facility] potassium measurement (moles/volume)2020-02-21 07:44:00* Test Item Value Reference Range Interpretation Comments Potassium Level (test code = 2823-3) 4.0 3.5-5.1 [facility] chloride measurement (moles/volume)2020-02-21 07:44:00* Test Item Value Reference Range Interpretation Comments Chloride Level (test code = 2075-0) 106 98-107 [facility] carbon dioxide, total measurement (moles/volume)2020-02-21 07:44:00* Test Item Value Reference Range Interpretation Comments Carbon Dioxide Level (test code = 2028-9) 20 22-29 [facility] anion hzz0094-11-88 07:44:00* Test Item Value Reference Range Interpretation Comments Anion Gap (test code = 45417-8) 16.0 8-16 [facility] urea nitrogen measurement (mass/volume)2020-02-21 07:44:00* Test Item Value Reference Range Interpretation Comments Blood Urea Nitrogen (test code = 3094-0) 13 7-26 [facility] creatinine measurement (mass/volume)2020-02-21 07:44:00* Test Item Value Reference Range Interpretation Comments Creatinine (test code = 2160-0) 0.99 0.72-1.25 [facility] urea nitrogen/creatinine mass ggbci8740-68-81 07:44:00* Test Item Value Reference Range Interpretation Comments BUN/Creatinine Ratio (test code = 3097-3) 13 6-25 [facility] HospitalEstimated glomerular filtration rate (GFR) eoihpjmxuwayc2535-19-15 07:44:00* Test Item Value Reference Range Interpretation Comments Estimat Glomerular Filtration Rate (test code = 658377340) > 60 >60 Ranges were taken from the National Kidney Disease Education Program and the [place] [facility] Foundation literature.Reference ranges:60 or greater: Kcdmvr52-27 ( for 3 consecutive months): Chronic kidney disease 15 or less: Kidney failureAspire Behavioral Health HospitalGlucose svtwhihoeum2067-29-66 07:44:00* Test Item Value Reference Range Interpretation Comments Glucose Level (test code = DJU5614) 269 74-118 [facility] calcium measurement (mass/volume)2020-02-21 07:44:00* Test Item Value Reference Range Interpretation Comments Calcium Level (test code = 26185-1) 8.7 8.4-10.2 [facility] total bilirubin measurement (mass/volume)2020-02-21 07:44:00* Test Item Value Reference Range Interpretation Comments Total Bilirubin (test code = 1975-2) 0.6 0.2-1.2 [facility] HospitalFluoroscopic procedure less than one hour gcwnfdge7536-91-29 07:44:00* Test Item Value Reference Range Interpretation Comments Aspartate Amino Transf (AST/SGOT) (test code = Aspartate Amino Transf (AST/SGOT)) 20 5-34 [facility] alanine aminotransferase measurement (enzymatic activity/volume)2020-02-21 07:44:00* Test Item Value Reference Range Interpretation Comments Alanine Aminotransferase (ALT/SGPT) (test code = 1742-6) 28 0-55 [facility] protein measurement (mass/volume)2020-02-21 07:44:00* Test Item Value Reference Range Interpretation Comments Total Protein (test code = 2885-2) 6.4 6.5-8.1 [facility] albumin measurement (mass/volume)2020-02-21 07:44:00* Test Item Value Reference Range Interpretation Comments Albumin (test code = 1751-7) 3.5 3.5-5.0 [facility] HospitalPlasma globulin measurement (mass/volume) 2020-02-21 07:44:00* Test Item Value Reference Range Interpretation Comments Globulin (test code = 66531-2) 2.9 2.3-3.5 [facility] albumin/globulin mass zgfte4945-06-30 07:44:00* Test Item Value Reference Range Interpretation Comments Albumin/Globulin Ratio (test code = 1759-0) 1.2 0.8-2.0 [facility] alkaline phosphatase measurement (enzymatic activity/volume)2020-02-21 07:44:00* Test Item Value Reference Range Interpretation Comments Alkaline Phosphatase (test code = 6768-6) 69 40-150 [facility] plasma total bilirubin measurement (mass/volume)2020-02-21 07:44:00* Test Item Value Reference Range Interpretation Comments Total Bilirubin (test code = 1975-2) 0.6 0.2-1.2 [facility] HospitalFluoroscopic procedure less than one hour ezlbdcin6163-49-17 07:44:00* Test Item Value Reference Range Interpretation Comments Aspartate Amino Transf (AST/SGOT) (test code = Aspartate Amino Transf (AST/SGOT)) 20 5-34 [facility] plasma alanine aminotransferase measurement (enzymatic activity/volume)2020-02-21 07:44:00* Test Item Value Reference Range Interpretation Comments Alanine Aminotransferase (ALT/SGPT) (test code = 1742-6) 28 0-55 [facility] plasma protein measurement (mass/volume)2020-02-21 07:44:00* Test Item Value Reference Range Interpretation Comments Total Protein (test code = 2885-2) 6.4 6.5-8.1 [facility] plasma albumin measurement (mass/volume)2020-02-21 07:44:00* Test Item Value Reference Range Interpretation Comments Albumin (test code = 1751-7) 3.5 3.5-5.0 [facility] HospitalPlasma globulin measurement (mass/volume) 2020-02-21 07:44:00* Test Item Value Reference Range Interpretation Comments Globulin (test code = 01018-5) 2.9 2.3-3.5 [facility] plasma albumin/globulin mass dvked7143-53-45 07:44:00* Test Item Value Reference Range Interpretation Comments Albumin/Globulin Ratio (test code = 1759-0) 1.2 0.8-2.0 [facility] plasma alkaline phosphatase measurement (enzymatic activity/volume)2020-02-21 07:44:00* Test Item Value Reference Range Interpretation Comments Alkaline Phosphatase (test code = 6768-6) 69 40-150 [facility] QVJAE2354-62-23 06:03:00 [facility] [address] [address] Patient Name: HARMAN MUNIZ MR #: [id number] : 1950 Age/Sex: 68/M Req #: [id number] Adm Physician: Ordered by: JARRETT WATT MD Report #: [id number] Location: ER Room/Bed: Procedure: DX/CHEST 2 VIEWS Exam Date: 03/18/19 Exam Ti me: 0538 REPORT STATUS: Signed E XAMINATION: CHEST 2 VIEWS INDICATION: sob [id number] 0538 Y COMPARISON: 02/25/2019 FINDINGS: PA and lateral views TUBES and LINES: None. LUNGS: Lungs are well inflated. There is no evide nce of pneumonia or pulmonary edema. Mild left basilar atelectasis/scarring. PLEURA: No pleural effusion or pneumothorax. HEART AND MEDIASTINUM: T he cardiomediastinal silhouette is unremarkable. BONES AND SOFT TISSUES : No acute osseous lesion. Soft tissues are unremarkable. UPPER ABDOMEN : No free air under the diaphragm. IMPRESSION: No acute thoracic abn ormality. Signed by: Dr. Paul Turk MD on 03/18/2019 6:05 AM D ictated By: PAUL TURK MD 4 COPY TO: JARRETT WATT MD B-Type Natriuretic Znnkjnt1053-86-06 05:21:00* Test Item Value Reference Range Interpretation Comments B-Type Natriuretic Peptide (test code = 32334-0) < 10.0 0-100 [facility] HospitalD-Dimer Quantitative (PE/DVT)2019-03-18 05:12:00* Test Item Value Reference Range Interpretation Comments D-Dimer Quantitative (PE/DVT) (test code = 40216-3) 0.39 0. 00-0.45 [facility] HospitalCreatine Kinase OQ8219-50-45 05:12:00* Test Item Value Reference Range Interpretation Comments Creatine Kinase MB (test code = 60150-4) 0.80 0-5.0 [facility] HospitalTroponin J8562-29-02 05:12:00* Test Item Value Reference Range Interpretation Comments Troponin I (test code = QGT5655) 0.005 0-0.300 [facility] Xvnwe8729-17-13 05:11:00* Test Item Value Reference Range Interpretation Comments Sodium Level (test code = 2951-2) 137 136-145 [facility] HospitalPotassium Eakya1738-59-06 05:11:00* Test Item Value Reference Range Interpretation Comments Potassium Level (test code = 2823-3) 4.4 3.5-5.1 [facility] HospitalChloride Jplek3411-51-49 05:11:00* Test Item Value Reference Range Interpretation Comments Chloride Level (test code = 2075-0) 100 98-107 [facility] HospitalCarbon Dioxide Qycjb1066-89-84 05:11:00* Test Item Value Reference Range Interpretation Comments Carbon Dioxide Level (test code = 2028-9) 28 22-29 [facility] HospitalAnion Dcx6960-57-08 05:11:00* Test Item Value Reference Range Interpretation Comments Anion Gap (test code = 92884-7) 13.4 8-16 [facility] HospitalBlood Urea Ehwhppij8687-76-36 05:11:00* Test Item Value Reference Range Interpretation Comments Blood Urea Nitrogen (test code = 3094-0) 16 7-26 [facility] HospitalCreatinine2019-09-25 05:11:00* Test Item Value Reference Range Interpretation Comments Creatinine (test code = 2160-0) 0.84 0.72-1.25 [facility] HospitalBUN/Creatinine Prxzk2504-54-23 05:11:00* Test Item Value Reference Range Interpretation Comments BUN/Creatinine Ratio (test code = 3097-3) 19 6-25 [facility] HospitalEstimat Glomerular Filtration Rate 2019-03-18 05:11:00* Test Item Value Reference Range Interpretation Comments Estimat Glomerular Filtration Rate (test code = 526897255) > 60 >60 Ranges were taken from the National Kidney Disease Education Program and the [facility] literature.Reference ranges:60 or greater: Oddvjs46-74 ( for 3 consecutive months): Chronic kidney disease 15 or less: Kidney failureAspire Behavioral Health HospitalGlucose Fkrhr8061-63-94 05:11:00* Test Item Value Reference Range Interpretation Comments Glucose Level (test code = QKY4248) 137 74-118 H [facility] HospitalCalcium Eegna2440-97-85 05:11:00* Test Item Value Reference Range Interpretation Comments Calcium Level (test code = 49281-4) 9.5 8.4-10.2 [facility] HospitalTotal Ioqjxmpnw9976-85-15 05:11:00* Test Item Value Reference Range Interpretation Comments Total Bilirubin (test code = 1975-2) 0.8 0.2-1.2 [facility] HospitalAspartate Amino Transf (AST/SGOT) 2019-03-18 05:11:00* Test Item Value Reference Range Interpretation Comments Aspartate Amino Transf (AST/SGOT) (test code = Aspartate Amino Transf (AST/SGOT)) 25 5-34 [facility] HospitalAlanine Aminotransferase (ALT/SGPT) 2019-03-18 05:11:00* Test Item Value Reference Range Interpretation Comments Alanine Aminotransferase (ALT/SGPT) (test code = 1742-6) 29 0-55 [facility] HospitalTotal Emtpjqk7083-53-65 05:11:00* Test Item Value Reference Range Interpretation Comments Total Protein (test code = 2885-2) 6.6 6.5-8.1 [facility] HospitalAlbumin2019-09-25 05:11:00* Test Item Value Reference Range Interpretation Comments Albumin (test code = 1751-7) 3.5 3.5-5.0 [facility] HospitalGlobulin2019-09-25 05:11:00* Test Item Value Reference Range Interpretation Comments Globulin (test code = 60693-6) 3.1 2.3-3.5 [facility] HospitalAlbumin/Globulin Dtbld2871-31-59 05:11:00 * Test Item Value Reference Range Interpretation Comments Albumin/Globulin Ratio (test code = 1759-0) 1.1 0.8-2.0 [facility] HospitalAlkaline Lezrcrbqfab6287-90-93 05:11:00* Test Item Value Reference Range Interpretation Comments Alkaline Phosphatase (test code = 6768-6) 86 40-150 [facility] HospitalCreatine Edczkk0562-17-33 05:11:00* Test Item Value Reference Range Interpretation Comments Creatine Kinase (test code = 2157-6) 52 30-200 [facility] HospitalWhite Blood Decwz7623-08-62 04:48:00* Test Item Value Reference Range Interpretation Comments White Blood Count (test code = 6690-2) 5.82 4.8-10.8 [facility] HospitalRed Blood Qwhst9592-03-47 04:48:00* Test Item Value Reference Range Interpretation Comments Red Blood Count (test code = 789-8) 4.71 4.3-5.7 [facility] HospitalHemoglobin2019-09-25 04:48:00* Test Item Value Reference Range Interpretation Comments Hemoglobin (test code = 55203-5) 14.5 14.0-18.0 [facility] HospitalHematocrit2019-09-25 04:48:00* Test Item Value Reference Range Interpretation Comments Hematocrit (test code = 4544-3) 42.5 38.2-49.6 [facility] HospitalMean Corpuscular Ltwfly5605-69-94 04:48:00* Test Item Value Reference Range Interpretation Comments Mean Corpuscular Volume (test code = 787-2) 90.2 81-99 [facility] HospitalMean Corpuscular Qcynfmahcz3173-07-01 04:48:00* Test Item Value Reference Range Interpretation Comments Mean Corpuscular Hemoglobin (test code = 785-6) 30.8 28-32 [facility] HospitalMean Corpuscular Hemoglobin Concent 2019-03-18 04:48:00* Test Item Value Reference Range Interpretation Comments Mean Corpuscular Hemoglobin Concent (test code = 786-4) 34.1 31-35 [facility] HospitalRed Cell Distribution Lglvd4615-88-23 04:48:00* Test Item Value Reference Range Interpretation Comments Red Cell Distribution Width (test code = 93882-4) 11.9 11.7 -14.4 [facility] HospitalPlatelet Wrsbx9467-32-95 04:48:00* Test Item Value Reference Range Interpretation Comments Platelet Count (test code = 777-3) 225 140-360 [facility] HospitalNeutrophils (%) (Auto)2019-03-18 04:48:00 * Test Item Value Reference Range Interpretation Comments Neutrophils (%) (Auto) (test code = 73873-3) 46.7 38.7-80.0 [facility] HospitalLymphocytes (%) (Auto)2019-03-18 04:48:00 * Test Item Value Reference Range Interpretation Comments Lymphocytes (%) (Auto) (test code = 736-9) 39.2 18.0-39.1 H [facility] HospitalMonocytes (%) (Auto)2019-03-18 04:48:00* Test Item Value Reference Range Interpretation Comments Monocytes (%) (Auto) (test code = 5905-5) 9.8 4.4-11.3 [facility] HospitalEosinophils (%) (Auto)2019-03-18 04:48:00 * Test Item Value Reference Range Interpretation Comments Eosinophils (%) (Auto) (test code = 713-8) 3.3 0.0-6.0 [facility] HospitalBasophils (%) (Auto)2019-03-18 04:48:00* Test Item Value Reference Range Interpretation Comments Basophils (%) (Auto) (test code = 706-2) 0.7 0.0-1.0 [facility] HospitalIM GRANULOCYTES %2019-03-18 04:48:00* Test Item Value Reference Range Interpretation Comments IM GRANULOCYTES % (test code = IM GRANULOCYTES %) 0.3 0.0- 1.0 [facility] HospitalNeutrophils # (Auto)2019-03-18 04:48:00* Test Item Value Reference Range Interpretation Comments Neutrophils # (Auto) (test code = 751-8) 2.7 2.1-6.9 [facility] HospitalLymphocytes # (Auto)2019-03-18 04:48:00* Test Item Value Reference Range Interpretation Comments Lymphocytes # (Auto) (test code = 46623-1) 2.3 1.0-3.2 [facility] HospitalMonocytes # (Auto)2019-03-18 04:48:00* Test Item Value Reference Range Interpretation Comments Monocytes # (Auto) (test code = 742-7) 0.6 0.2-0.8 [facility] HospitalEosinophils # (Auto)2019-03-18 04:48:00* Test Item Value Reference Range Interpretation Comments Eosinophils # (Auto) (test code = 711-2) 0.2 0.0-0.4 [facility] HospitalBasophils # (Auto)2019-03-18 04:48:00* Test Item Value Reference Range Interpretation Comments Basophils # (Auto) (test code = 704-7) 0.0 0.0-0.1 [facility] HospitalAbsolute Immature Granulocyte (auto 2019-03-18 04:48:00* Test Item Value Reference Range Interpretation Comments Absolute Immature Granulocyte (auto (naty t code = Absolute Immature Granulocyte (auto) 0.02 0-0.1 [facility] HospitalB-Type Natriuretic Vraqhmr9643-48-84 04:34:00* Test Item Value Reference Range Interpretation Comments B-Type Natriuretic Peptide (test code = 00723-6) < 10.0 0-100 [facility] HospitalCreatine Kinase BC3594-34-50 04:21:00* Test Item Value Reference Range Interpretation Comments Creatine Kinase MB (test code = 14851-0) 0.30 0-5.0 [facility] HospitalTroponin K2833-54-62 04:21:00* Test Item Value Reference Range Interpretation Comments Troponin I (test code = PBL5666) < 0.001 0-0.300 [facility] Hwoff2983-73-77 04:13:00* Test Item Value Reference Range Interpretation Comments Sodium Level (test code = 2951-2) 137 136-145 [facility] HospitalPotassium Cdptz9233-17-90 04:13:00* Test Item Value Reference Range Interpretation Comments Potassium Level (test code = 2823-3) 3.6 3.5-5.1 [facility] HospitalChloride Wrdmb2779-52-04 04:13:00* Test Item Value Reference Range Interpretation Comments Chloride Level (test code = 2075-0) 100 98-107 [facility] HospitalCarbon Dioxide Fusei6746-36-39 04:13:00* Test Item Value Reference Range Interpretation Comments Carbon Dioxide Level (test code = 2028-9) 27 22-29 [facility] HospitalAnion Gpe9186-45-11 04:13:00* Test Item Value Reference Range Interpretation Comments Anion Gap (test code = 06189-4) 13.6 8-16 [facility] HospitalBlood Urea Uekpyfmh1273-02-51 04:13:00* Test Item Value Reference Range Interpretation Comments Blood Urea Nitrogen (test code = 3094-0) 10 7-26 [facility] HospitalCreatinine2019-09-04 04:13:00* Test Item Value Reference Range Interpretation Comments Creatinine (test code = 2160-0) 0.81 0.72-1.25 [facility] HospitalBUN/Creatinine Odjww6559-13-78 04:13:00* Test Item Value Reference Range Interpretation Comments BUN/Creatinine Ratio (test code = 3097-3) 12 6-25 [facility] HospitalEstimat Glomerular Filtration Rate 2019-02-25 04:13:00* Test Item Value Reference Range Interpretation Comments Estimat Glomerular Filtration Rate (test code = 480014137) > 60 >60 Ranges were taken from the National Kidney Disease Education Program and the [place] [facility] literature.Reference ranges:60 or greater: Qykqcp34-40 ( for 3 consecutive months): Chronic kidney disease 15 or less: Kidney failureAspire Behavioral Health HospitalGlucose Zdtte8087-46-32 04:13:00* Test Item Value Reference Range Interpretation Comments Glucose Level (test code = PHA7083) 142 74-118 H [facility] HospitalCalcium Pvqqm8802-59-68 04:13:00* Test Item Value Reference Range Interpretation Comments Calcium Level (test code = 78553-7) 10.3 8.4-10.2 H [facility] HospitalTotal Alutxhpbi2324-25-03 04:13:00* Test Item Value Reference Range Interpretation Comments Total Bilirubin (test code = 1975-2) 0.9 0.2-1.2 [facility] HospitalAspartate Amino Transf (AST/SGOT) 2019-02-25 04:13:00* Test Item Value Reference Range Interpretation Comments Aspartate Amino Transf (AST/SGOT) (test code = Aspartate Amino Transf (AST/SGOT)) 19 5-34 [facility] HospitalAlanine Aminotransferase (ALT/SGPT) 2019-02-25 04:13:00* Test Item Value Reference Range Interpretation Comments Alanine Aminotransferase (ALT/SGPT) (test code = 1742-6) 24 0-55 [facility] HospitalTotal Vnhmido4133-25-76 04:13:00* Test Item Value Reference Range Interpretation Comments Total Protein (test code = 2885-2) 6.9 6.5-8.1 [facility] HospitalAlbumin2019-09-04 04:13:00* Test Item Value Reference Range Interpretation Comments Albumin (test code = 1751-7) 3.8 3.5-5.0 [facility] HospitalGlobulin2019-09-04 04:13:00* Test Item Value Reference Range Interpretation Comments Globulin (test code = 13456-3) 3.1 2.3-3.5 [facility] HospitalAlbumin/Globulin Mjjxg5149-32-71 04:13:00 * Test Item Value Reference Range Interpretation Comments Albumin/Globulin Ratio (test code = 1759-0) 1.2 0.8-2.0 [facility] HospitalAlkaline Ujadwxtihlg6600-45-37 04:13:00* Test Item Value Reference Range Interpretation Comments Alkaline Phosphatase (test code = 6768-6) 89 40-150 [facility] HospitalCreatine Zmbdvm4483-36-84 04:13:00* Test Item Value Reference Range Interpretation Comments Creatine Kinase (test code = 2157-6) 91 30-200 [facility] HospitalD-Dimer Quantitative (PE/DVT)2019-02-25 04:05:00* Test Item Value Reference Range Interpretation Comments D-Dimer Quantitative (PE/DVT) (test code = 67855-6) 0.44 0. 00-0.45 [facility] HospitalCHEST SINGLE (PORTABLE)2019-02-25 03:53:00 [facility] [address] [place] [address] Patient Name: HARMAN MUNIZ MR #: [id number] : 1950 Age/Sex: 68/M Req #: [id number] Adm Physician: Ordered by: JARRETT WATT MD Report #: [id number] Location: ER Room/Bed: Procedure: DX/CHEST SINGLE (PORTABLE) Exam Date: 02/25/19 Exam Time: 0325 REPORT STATUS: S igned EXAMINATION: CHEST SINGLE (PORTABLE) COMPARISON: None IN DICATION: SOB [id number] 0325 Y DISCUSSION: Frontal view of the chest obtained at 0336 hours. Images obtained through a back brace. H EART AND MEDIASTINUM: The heart is normal in size. The aorta is mildly tortuo us. LINES: None. LUNGS: The lungs are well inflated and clear. No pneumonia or pulmonary edema. PLEURA: No pleural effusion or pneumothorax. BONES AND SOFT TISSUES: No focal osseous lesion. The soft tissues are nor mal. IMPRESSION: No acute cardiopulmonary disease. Signed by: Dr. Tania Stanford MD on 02/25/2019 3:54 AM Dictated By: JEFF Marin 3 Transcribed By: CHUCKY on 02/25/19353 COPY TO: JARRETT WATT MD White Blood Gwdwh2678-81-12 03:50:00* Test Item Value Reference Range Interpretation Comments White Blood Count (test code = 6690-2) 4.80 4.8-10.8 [facility] HospitalRed Blood Jwsiy1621-57-38 03:50:00* Test Item Value Reference Range Interpretation Comments Red Blood Count (test code = 789-8) 4.69 4.3-5.7 [facility] HospitalHemoglobin2019-09-04 03:50:00* Test Item Value Reference Range Interpretation Comments Hemoglobin (test code = 84979-1) 14.7 14.0-18.0 [facility] HospitalHematocrit2019-09-04 03:50:00* Test Item Value Reference Range Interpretation Comments Hematocrit (test code = 4544-3) 41.9 38.2-49.6 [facility] HospitalMean Corpuscular Padcqj6345-60-69 03:50:00* Test Item Value Reference Range Interpretation Comments Mean Corpuscular Volume (test code = 787-2) 89.3 81-99 [facility] Corpuscular Saexuawxhd1061-11-10 03:50:00* Test Item Value Reference Range Interpretation Comments Mean Corpuscular Hemoglobin (test code = 785-6) 31.3 28-[address] [facility] Corpuscular Hemoglobin Concent 2019-02-25 03:50:00* Test Item Value Reference Range Interpretation Comments Mean Corpuscular Hemoglobin Concent (test code = 786-4) 35.1 31-35 H [facility] HospitalRed Cell Distribution Nzkbb8664-76-59 03:50:00* Test Item Value Reference Range Interpretation Comments Red Cell Distribution Width (test code = 97788-4) 12.0 11.7 -14.4 [facility] HospitalPlatelet Qiluv5051-27-82 03:50:00* Test Item Value Reference Range Interpretation Comments Platelet Count (test code = 777-3) 190 140-360 [facility] HospitalNeutrophils (%) (Auto)2019-02-25 03:50:00 * Test Item Value Reference Range Interpretation Comments Neutrophils (%) (Auto) (test code = 71348-3) 50.5 38.7-80.0 [facility] HospitalLymphocytes (%) (Auto)2019-02-25 03:50:00 * Test Item Value Reference Range Interpretation Comments Lymphocytes (%) (Auto) (test code = 736-9) 35.4 18.0-39.1 [facility] HospitalMonocytes (%) (Auto)2019-02-25 03:50:00* Test Item Value Reference Range Interpretation Comments Monocytes (%) (Auto) (test code = 5905-5) 9.4 4.4-11.3 [facility] HospitalEosinophils (%) (Auto)2019-02-25 03:50:00 * Test Item Value Reference Range Interpretation Comments Eosinophils (%) (Auto) (test code = 713-8) 3.5 0.0-6.0 [facility] HospitalBasophils (%) (Auto)2019-02-25 03:50:00* Test Item Value Reference Range Interpretation Comments Basophils (%) (Auto) (test code = 706-2) 0.6 0.0-1.0 [facility] HospitalIM GRANULOCYTES %2019-02-25 03:50:00* Test Item Value Reference Range Interpretation Comments IM GRANULOCYTES % (test code = IM GRANULOCYTES %) 0.6 0.0- 1.0 [facility] HospitalNeutrophils # (Auto)2019-02-25 03:50:00* Test Item Value Reference Range Interpretation Comments Neutrophils # (Auto) (test code = 751-8) 2.4 2.1-6.9 [facility] HospitalLymphocytes # (Auto)2019-02-25 03:50:00* Test Item Value Reference Range Interpretation Comments Lymphocytes # (Auto) (test code = 19401-1) 1.7 1.0-3.2 [facility] HospitalMonocytes # (Auto)2019-02-25 03:50:00* Test Item Value Reference Range Interpretation Comments Monocytes # (Auto) (test code = 742-7) 0.5 0.2-0.8 [facility] HospitalEosinophils # (Auto)2019-02-25 03:50:00* Test Item Value Reference Range Interpretation Comments Eosinophils # (Auto) (test code = 711-2) 0.2 0.0-0.4 [facility] HospitalBasophils # (Auto)2019-02-25 03:50:00* Test Item Value Reference Range Interpretation Comments Basophils # (Auto) (test code = 704-7) 0.0 0.0-0.1 [facility] HospitalAbsolute Immature Granulocyte (auto 2019-02-25 03:50:00* Test Item Value Reference Range Interpretation Comments Absolute Immature Granulocyte (auto (naty t code = Absolute Immature Granulocyte (auto) 0.03 0-0.1 [facility]- X[facility] SPINE 1 V SPEC [id number] 09:53:00Patient Name: HARMAN MAIN Unit No: [id number] EXAMS: CPT CODE: [id number] XR SPINE 1 V SPEC LEVEL 17409 Examination: Single lateral intraoperative view of the lumbar spine Location code: S17 Comparison: None Discussion: Clinical history is remarkable for lumbar laminectomy. Single lateral view demonstrates a probe near the posterior elements of L5-S1. Alignment is anatomic, diminished disc height noted at L5-S1. Impression: 1. Please refer the operative report. at 0953 Reported and signed by: AGUS MERCADO M.D. CC: Tank Ramsey MD Technologist: Martin Beck Time: DAP (Gy m2): Air Kerma (mGy): Trscr Dt/Tm: 02/07/2019 (0953) by:[email or web address] Printed Date/Time: 02/07/2019 (8956) Name: JOSE DAVIDHARMAN SHEN [facility] Phys: Tank Reyes MD [address] : 1950 Age: 68 Sex: [place] [address] Loc: P.0575 1 Exam Date: 02/05/2019 Status: ADM IN PH: FAX: PAGE 1 Signed Report SURGICAL LRQATGEBW0395-02-03 16:56:00 RUN DATE: 02/06/19 Maria Eugenia GARG *LIVE* PAGE 1 RUN TIME: 1656 Specimen Inqui ry RUN USER: INTERFACE PATIENT: HARMAN MAIN ACCT #: B [id number] LOC: P.5N POD B U #: [id number] AGE/SX: 68/M ROOM: [facility] RE02/05/19REG DR: Tank Ramsey MD : 50 BED: 1 DIS: STATUS: ADM Richard TLOC: SPEC #: [id number] RECD: 02/05/19 STATUS: PETE SINGH #: [id number] ROMINA: 02/05/19 [facility] DR: Tank Ramsey MD ENTERED: 02/05/19 SP TYPE: SURG OTHR DR: Aj Garrett MD ORDERED: PATHGM3, PATH SPEC, DECAL, H E STAIN HISTOLOGY: TISSUE ID BLK PCS NILSA LEV / PROCEDURE DISPOSITION ____ ___ ___ ___ ___ INVERTEBRAL DIS A 1 1 TISSUES: A. INVERTEBRAL DISC - Lumbar Fiive-Sacral One Disc CLINICAL HISTORY Lumbar Disc Displacement, Radiculopathy, Ba ck Pain FINAL DIAGNOSIS INTERVERTEBRAL DISC, LUMBAR 5-SACRAL 1, DISCE CTOMY: - Fibrocartilaginous tissue with degenerative changes and focal microca lcifications, consistent with intervertebral disc. GROSS DESCRIPTION LUMBAR 5-SACRAL 1 DISC: The specimen is received in formalin labeled with the patient's demographic information and "lumbar 5-sacral 1 disc". It consists of many irregular garrett-white to pale pink soft tissue fragments measuring 4 x 4 x 1.3 cm in aggregate. No discrete lesions are seen. Radiographer Mammographer sections are submitted in a single cassette. WORK ADJUSTMENT INSTRUCTOR/eb MICROSCOPIC DESCRIPTION No malignancy is identified. Signed SIGNATURE ON FILE Carol Yoon 02/06/19 1656 END OF REPORT PROTHROMBIN [id number] 11:14:00* Test Item Value Reference Range Interpretation Comments PROTHROMBIN TIME PATIENT (test code = PTP) 11.4 SECONDS 10.3-12.9 N INTERNATIONAL NORMAL RATIO (test code = INR) 0.98 INR UNIT 0.9-1.11 N The INR is useful only for monitoring anticoagulant therapy.It may be unreliable in the initial phase of antigoagulationand in unstable patients. Indication for Anticoagulation Recommended INR 1. Prevention of venous thomboembolism 2.0-3.0in high-risk patients; treatment of venousthrombosis and pulmonary embolism aftera course of heparin; prevention of systemicembolism in a variety of conditions, including atrial fibrillation and prothetic tissue heart valves, 2. Prosthetic mechanical heart valves; 2.5-3.5recurrent systemic embolism. THROMBOPLASTIN TIME [id number] 11:14:00* Test Item Value Reference Range Interpretation Comments THROMBOPLASTIN TIME PARTIAL (test code = PTT) 33.0 SECONDS 26.0-35. 9 N INTERPRETATIVE DATA:Therapeutic range: Unfractionated heparin:47 - 71 seconds Argatroban:1.5 to 3 times the baseline PTT COMPREHENSIVE METABOLIC [id number] 10:54:00* Test Item Value Reference Range Interpretation Comments SODIUM (test code = NA) 141 MMOL/L 136-143 N POTASSIUM (test code = K) 4.4 MMOL/L 3.5-5.1 N CHLORIDE (test code = CL) 104 MMOL/L 98-107 N CARBON DIOXIDE (test code = CO2) 25 mmol/L 24-31 N GLUCOSE (test code = GLU) 159 mg/dL 70-104 H BLOOD UREA NITROGEN (test code = BUN) 11.2 MG/DL 7.0-21.0 N GLOMERULAR FILTRATION RATE (test code = GFR) >=60 max estimate >60 The estimated glomerular filtration rate is computed usingpatient race, age (>18), sex, and serum creatinine. If anyof the needed data elements are missing the Laboratory cannot compute an estimation of the glomerular filtration rate. CREATININE (test code = CREAT) 0.8 mg/dL 0.8-1.5 N TOTAL PROTEIN (test code = PROT) 6.7 g/dL 6.3-8.3 N ALBUMIN (test code = ALB) 4.1 G/DL 3.5-5.0 N CALCIUM (test code = CA) 9.6 mg/dL 8.8-10.2 N BILIRUBIN TOTAL (test code = BILT) 0.5 mg/dL 0.2-1.0 N SGOT/AST (test code = AST) 19 IU/L 10-34 N SGPT/ALT (test code = ALT) 25 U/L 10-44 N ALKALINE PHOSPHATASE (test code = ALKP) 90 U/L 45-120 N LIPID PROFILE (CORONARY RISK)2019-01-30 10:54:00* Test Item Value Reference Range Interpretation Comments TRIGLYCERIDES (test code = TRIG) 338 mg/dL 35-160 H CHOLESTEROL (test code = CHOL) 216 mg/dL 0-200 H HDL CHOLESTEROL (test code = HDL) 47 mg/dL 35-55 N LIPOPROTEIN LDL (test code = LDLC) 102 MG/DL 0-99 H INTERPRETATIVE DATA:LDL Cholesterol: Reference RangesOptimal: <100 mg/dLNear Optimal: 100 -129 mg/dLBorderline High: 130 - 159 mg/dLHigh: 160 - 189 mg/dLVery High: = or > 190 mg/dL CORONARY RISK FACTOR (test code = RISK) 4.60 CHOL/HDL RISK MALE: 1/2 AVG 3.43 FEMALE: 1/2 AVG 3.27 AVG 4.97 AVG 4.44 2X AVG 9.55 2X AVG 7.05 3X AVG 23.39 3X AVG 11.04~~~~~~~~~~~~~~~~~~~~~~~~~~~~~~~~~~~~~~~~~~~~~~~~~~~~~~~~~~~~National Cholesterol Education (NCEP) Guidelines:~~~~~~~~~~~~~~~~~~~~~~~~~~~~~~~~~~~~~~~~~~~~~~~~~~~~~~~~~~~~ HDL Cholesterol<40mg/dL: HDL Cholesterol (Major risk factor for CHD)>60mg/dL: HDL Cholesterol (Negative risk factor for CHD)40-59mg/dL: Borderline Risk LDL Cholesterol<100mg/dL: Desirable LDL-C [id number]/dL: Borderline High Risk LDL-C jtafopzqkbtpj547-108cc/dL: High risk LDL-C concentration HDL-LDL Cholesterol is affected by a number of factors suchas smoking, age and sex.~~~~~~~~~~~~~~~~~~~~~~~~~~~~~~~~~~~~~~~~~~~~~~~~~~~~~~~~~~~~ URINALYSIS [id number] 10:49:00* Test Item Value Reference Range Interpretation Comments UA COLOR (test code = COLU) YELLOW DISCRIPT YELLOW UA APPEARANCE (test code = APPU) CLEAR DISCRIPT CLEAR UA GLUCOSE DIPSTICK (test code = DGLUU) NEGATIVE mg/dL NEGATIVE UA BILIRUBIN DIPSTICK (test code = BILU) NEGATIVE NEGATIVE UA KETONE DIPSTICK (test code = KETU) NEGATIVE mg/dL NEGATIVE UA SPECIFIC GRAVITY (test code = SGU) >=1.030 1.005-1.030 UA BLOOD DIPSTICK (test code = GORDON) NEGATIVE NEGATIVE UA PH DIPSTICK (test code = PARI) 5.5 5.0-9.0 UA PROTEIN DIPSTICK (test code = PROU) NEGATIVE mg/dL NEGATIVE UA UROBILINOGEN DIPSTICK (test code = URO) 0.2 mg/dL 0.2-1.0 UA NITRITE DIPSTICK (test code = ROGER) NEGATIVE NEGATIVE UA LEUKOCYTE ESTERASE DIPSTICK (test code = LEUU) NEGATIVE NEGA TIVE CBC W/AUTO [id number] 10:48:00* Test Item Value Reference Range Interpretation Comments WHITE BLOOD CELL (test code = WBC) 5.1 x10 3/uL 4.8-10.8 N RED BLOOD CELL (test code = RBC) 4.91 x10 6/uL 4.70-6.10 N HEMOGLOBIN (test code = HGB) 15.3 g/dL 14.5-20 N HEMATOCRIT (test code = HCT) 44.9 % 42.0-52.0 N MEAN CELL VOLUME (test code = MCV) 91.4 fL 80.0-94.0 N MEAN CELL HGB (test code = MCH) 31.2 pg 27-31 H MEAN CELL HGB CONCENTRATION (test code = MCHC) 34.1 G/DL 33-36.5 N RED CELL DISTRIBUTION WIDTH (test code = RDW) 12.4 % 12.9-16. 9 L PLATELET COUNT (test code = PLT) 197 150-440 N MEAN PLATELET VOLUME (test code = MPV) 10.9 fL 8.9-12.4 N NEUTROPHIL % (test code = NT%) 58.5 % 42.2-75.2 N LYMPHOCYTE % (test code = LY%) 29.4 % 20.5-51.1 N MONOCYTE % (test code = MO%) 8.3 % 1.7-9.3 N EOSINOPHIL % (test code = EO%) 2.8 % 0.0-7.0 N BASOPHIL % (test code = BA%) 0.6 % 0-2.5 N NEUTROPHIL # (test code = NT#) 2.96 x10 3/uL 1.80-7.70 N LYMPHOCYTE # (test code = LY#) 1.49 x10 3/uL 1.00-4.80 N MONOCYTE # (test code = MO#) 0.42 x10 3/uL 0.00-0.80 N EOSINOPHIL # (test code = EO#) 0.14 x10 3/uL 0.00-0.45 N BASOPHIL # (test code = BA#) 0.03 x10 3/uL 0.0-0.20 N MRI SPINE LUMBAR [id number] 08:32:00 [place] [id number] Patient Name: HARMAN MUNIZ MR #: [id number] : 1950 Age/Sex: 67/M Req #: [id number] [facility] Physician: Ordered by: MIHAELA BALLARD MD Report #: [id number] Location: MRI Room/Bed: Procedure: [id number] MRI/MRI SPINE LUMBAR WO Exam Date: 08/19/18 Exam Ti me: [id number] REPORT STATUS: Signed M RI SPINE LUMBAR WO HISTORY: Low back pain; right leg pain COMPARISON: None. TECHNIQUE: Sagittal T1, sagittal T2, sagittal STIR, axial T2, barbara nal T2, and axial proton density weighted images of the lumbar spine were obta ined without contrast. DISCUSSION: Number of non-rib bearing lumbar vertebral bodies: 5. Alignment: Normal lordosis. No scoliosis. Vertebrae: S mall nodular T1/T2 hyperintense lesion along the right L3 pedicle is likely a benign hemangioma. Otherwise, no definite evidence for fractures, infection or neoplasm. Conus medullaris: Normal, ends at L1. Cauda equina: No masses or arachnoiditis. Posterior paraspinal muscles: Well preserved. No signal abnor malities. Soft tissues: Mild bilateral renal pelviectasis is present. Mil d multilevel disc degeneration is present. T12-L1: Disc bulge without signi ficant canal or foraminal stenosis. L1-L2: Patent canal and foramina. L2-L3: Disc bulge without significant canal or foraminal stenosis. L3-L4: P atent canal and foramina. L4-L5: Mild bilateral foraminal stenoses due to d isc bulge and facet arthrosis. No significant canal stenosis. L5-S1: Appr oximately 6 mm right subarticular disc extrusion (with minimal inferior migrat ion) impinges upon the descending right S1 nerve root. No significant central canal stenosis. Moderate right and mild left foraminal stenoses due to asymmet jay disc bulge and facet arthrosis. IMPRESSION: 1. Mild multilevel disc degeneration without significant canal stenosis. 2. Approximately 6 mm right L5-S1 subarticular disc extrusion impinges upon the descending right S1 nerve. 3. Multilevel bilateral lower lumbar degenerative foraminal stenoses - mod erate on the right at L5-S1. Signed by: Dr. Kavon Ramírez M.D. on 08/20/19 8:40 AM Dictated By: KAVON RAMÍREZ MD 9 Transcribed By: CHUCKY on 08/20/18839 COPY TO: MIHAELA BALLARD MD
[2020-02-25 04:37] LABS: CREATINE KINASE 31 IU/L (30-200)
[2020-02-25 04:40] LABS: ALANINE AMINOTRANSFERASE 28 IU/L (0-55); ALBUMIN 4.1 g/dL (3.5-5.0); ALBUMIN/GLOBULIN RATIO 1.9 (0.8-2.0); ALKALINE PHOSPHATASE 85 IU/L (40-150); BLOOD UREA NITROGEN 10 mg/dL (7-26); BUN/CREATININE RATIO 10 (6-25); CALCIUM 9.1 mg/dL (8.4-10.2); CARBON DIOXIDE 22 mmol/L (22-29); CHLORIDE 104 mmol/L (98-107); CREATININE, SERUM 1.05 mg/dL (0.72-1.25); EST GLOMERULAR FILTRATION RATE > 60 ML/MIN (60-); GLUCOSE 281 mg/dL (74-118); SODIUM 137 mmol/L (136-145)
--- NOTE | 2020-02-25 05:15 | Diagnostic Imaging Report ---
EXAMINATION: CHEST SINGLE (PORTABLE) INDICATION: ^Y ^SOB COMPARISON: None FINDINGS: AP view TUBES and LINES: None. LUNGS: Lungs are well inflated. There is no evidence of pneumonia or pulmonary edema. PLEURA: No pleural effusion or pneumothorax. HEART AND MEDIASTINUM: The cardiomediastinal silhouette is unremarkable. BONES AND SOFT TISSUES: No acute osseous lesion. Soft tissues are unremarkable. UPPER ABDOMEN: No free air under the diaphragm. IMPRESSION: No acute thoracic abnormality. Signed by: Dr. Paul Gonzalez MD on 02/25/2020 5:12 AM
--- NOTE | 2020-02-25 05:40 | Diagnostic Imaging Report ---
EXAMINATION: Head CT without contrast. HISTORY:Headache. COMPARISON:None. TECHNIQUE: Multidetector axial images were obtained from the foramen magnum to the vertex without contrast. The images were reconstructed using brain and bone algorithms. Thin section brain images were reformatted into coronal and sagittal planes. Dose modulation, iterative reconstruction, and/or weight based adjustment of the mA/kV was utilized to reduce the radiation dose to as low as reasonably achievable. Intravenous contrast: None IMAGE QUALITY: Suboptimal evaluation particularly at the level of skull base and posterior fossa structures due to streak artifacts. FINDINGS: Skull/scalp: No lytic or blastic. lesions. No surgical changes. Parenchyma: Nonspecific few, scattered supratentorial white matter hypodensity are likely related to small vessel ischemic changes. No acute hemorrhage, mass or acute major vascular territorial infarct. Arteries: No density suggestive of thrombosis. Dural sinuses: No abnormal density suggestive of thrombosis. Ventricles: No hydrocephalus or displacement. Extra-axial spaces: No abnormal density. Brain volume: Mild generalized cerebral volume loss. Craniocervical junction: No mass, Chiari malformation, or basilar invagination. Sella: No mass. Paranasal/mastoid sinuses: Imaged portions unremarkable. IMPRESSION: No acute intracranial abnormality. Mild supratentorial white matter microvascular ischemic changes. Mild generalized cerebral volume loss. Signed by: Dr. Leonela Murcia M.D. on 02/25/2020 5:36 AM
--- OUTSIDE RECORDS SUMMARY | 2020-02-25 05:49 | XMS REPORT | Clinical Summary ---
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 QU[address] resent [phone] MEDICARE [place], [place] B[employer]EF[place] [id number] Y
--- OUTSIDE RECORDS SUMMARY | 2020-02-25 05:49 | XMS REPORT | Continuity of Care Document ---
Author Author [facility] t Organization [facility] Address [address] [place] [address] Phone Unavailable Care Team Providers Care Dye Tub Operator Name Role Phone MARK HAMMOND, MD Brigitte PEDROZA PCP FREDDY RAMIREZ Attphys Unavailable Dewayne WATT Attphys Unavailable Alejandro CONLEY Attphys Unavailable JARRETT ROBBINS M.D. Attphys Unavailable MIHAELA BALLARD Attphys Unavailable Gus OTT Admphys Unavailable Payers Payer Name Policy Type Policy Number Effective Date Expiration Date Alejandro coteprakash Simeon Medicare Complete [id number] C [facility] Medicare A & B [id number] [facility] [id number] 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 Disease Ac tive 2013-10-19 00:00:00 [facility] HLD (hyperlipidemia) HLD (hyperlipidemia) Disease Active 00:00:00 [facility] History of Known health problems: none History of Known heal th problems: none Problem Resolved [facility] Encounter for mastoidectomy cavity debridement Encount er for mastoidectomy cavity debridement Problem [facility] Otalgia of left ear Otalgia of left ear Problem Active [facility] Impacted cerumen of left ear Impacted cerumen of left ear Problem Active [facility] Thyroid nodule Thyroid nodule Problem Active [facility] Chronic otitis externa Chronic otitis externa Problem Active [facility] Sensation of plugged ear on left side Sensation of plugged e ar on left side Problem Active [facility] Concussion Problem Active [facility] Post-traumatic headache Problem Active [facility] Dyspnea Problem Active [facility] Pleural effusion Problem Active [facility] Liver nodule Problem Active [facility] Lung nodule Problem Active [facility] Allergies, Adverse Reactions, Alerts Allergy Name Allergy Type Status Severity Reaction(s) Onset Date Inacti ve Date Treating Clinician Comments Source No Known Allergies DA Active U 2019-02-05 00:00:00 [facility] No Known Allergies DA Active U 2019-01-30 00:00:00 [facility] Family History Family Member Diagnosis Comments Start Date Stop Date Source unknown Unknown Fam Hx [facility] Social History Social Habit Start Date Stop Date Quantity Comments Source Sex Assigned At [facility] Alcohol intake 2017-05-01 00:00:00 2017-05-01 00:00:00 Current drinker of alcohol (finding) [facility] Smoking Status Start Date Stop Date Source Former smoker [facility] Never smoker [facility] Medications Ordered Medication Name Filled Medication Name Start Date Stop Da te Current Medication? Ordering Clinician Indication Dosage Frequency Signature (SIG) Comments Components Source Butalbital/Aspirin/Caffeine (Fiorinal 50-325-40 Mg Cap jose daniel) 1 Each CAPSULE Butalbital/Aspirin/Caffeine (Fiorinal 50-325-40 Mg Capsule) 1 Each CAPSULE 2020-02-21 08:36:00 Yes 1 Every 8 Hours as n eeded for Headache [facility] Tramadol Hcl (Ultram) 50 Mg TABLET Tramadol Hcl (Ultram) 50 Mg TABLET 2020-02-21 08:36:00 Yes 50 Every 6 Ho urs as needed for Mild Pain (1-3) Or Fever>100.8 [facility] Ciprodex 0.3-0.1 % Otic Suspension Ciprodex 0.3-0.1 % Otic S uspension 2018-11-24 00:00:00 Yes JARRETT ROBBINS M.D. 3-4 drops to the a ffected ear BID [facility] acetaminophen (TYLENOL) 325 mg tablet 2015-09-27 12:12:54 Y es 650mg Take 650 mg by mouth Before meals as needed for Pain. [facility] traMADol (ULTRAM) 50 mg tablet 2015-08-09 00:00:00 Yes Otalgia of left ear 50mg Take 1 tablet by mouth every 6 hours as needed for Pain. [facility] naproxen (NAPROSYN) 375 mg tablet 2014-06-22 00:00:00 Ye s Hearing loss 375mg Take 1 tablet by mouth 2 times daily (with meals). [facility] HYDROcodone-acetaminophen (NORCO) 5-325 mg tablet 2014-03-26 00:00:00 Yes Hearing loss 2{tbl} Take 2 tablets by mouth every 4 hours as needed for Pain. [facility] ibuprofen (MOTRIN) 800 mg tablet 2013-11-10 00:00:00 Yes Otorrhea 800mg Take 1 tablet by mouth every 8 hours as needed for Pain. [facility] Immunizations Ordered Immunization Name Filled Immunization Name Date Status Comments Source Influenza Vaccine 2013-04-23 00:00:00 Completed [facility] Vital Signs Vital Name Observation Time Observation Value Comments Source Body Temperature 2020-02-22 22:38:00 98.6 [degF] [facility] Weight 2020-02-22 18:06:00 204 [lb_av] [facility] BMI (Body Mass Index) 2020-02-22 18:06:00 35.0 kg/m2 [facility] Weight 2020-02-21 23:50:00 204 [lb_av] [facility] BMI (Body Mass Index) 2020-02-21 23:50:00 35.0 kg/m2 [facility] Weight 2020-02-21 07:32:00 204 [lb_av] [facility] BMI (Body Mass Index) 2020-02-21 07:32:00 35.0 kg/m2 [facility] BP Systolic 2019-05-28 11:01:00 143 mm[Hg] Location: [place]; [place]: [place] [facility] BP Diastolic 2019-05-28 11:01:00 81 mm[Hg] Location: [place]; [place]: [place] [facility] Height 2019-05-28 11:01:00 70 [in_us] [facility] Weight 2019-05-28 11:01:00 205.5625 [lb_av] [facility] Body Mass Index Calculated 2019-05-28 11:01:00 29.5 kg/m2 [facility] Heart Rate 2019-05-28 11:01:00 84 /min [facility] Weight 2019-03-24 16:07:00 201.3125 [lb_av] [facility] Body Mass Index Calculated 2019-03-24 16:07:00 28.89 kg/m2 [facility] Height 2019-03-24 16:07:00 70 [in_us] [facility] BP Systolic 2018-11-20 10:51:00 127 mm[Hg] Location: [place]; [place]: [place] [facility] BP Diastolic 2018-11-20 10:51:00 74 mm[Hg] Location: [place]; [place]: [place] [facility] Height 2018-11-20 10:51:00 70 [in_us] [facility] Weight 2018-11-20 10:51:00 204.8 [lb_av] [facility] Body Mass Index Calculated 2018-11-20 10:51:00 29.39 kg/m2 [facility] Heart Rate 2018-11-20 10:51:00 77 /min [facility] BP Systolic 2018-07-03 13:29:00 127 mm[Hg] Location: [place] [facility] BP Diastolic 2018-07-03 13:29:00 72 mm[Hg] Location: [place] [facility] Height 2018-07-03 13:29:00 70 [in_us] [facility] Weight 2018-07-03 13:29:00 208 [lb_av] [facility] Body Mass Index Calculated 2018-07-03 13:29:00 29.85 kg/m2 [facility] Temperature 2018-07-03 13:29:00 98 [degF] Method: Oral [facility] Heart Rate 2018-07-03 13:29:00 65 /min Location: [place] Brachial Artery; [facility] BP Systolic 2018-03-13 14:58:00 129 mm[Hg] Location: [place]; [place]: [place] [facility] BP Diastolic 2018-03-13 14:58:00 70 mm[Hg] Location: [place]; [place]: [place] [facility] Height 2018-03-13 14:58:00 70 [in_us] [facility] Weight 2018-03-13 14:58:00 204.5 [lb_av] [facility] Body Mass Index Calculated 2018-03-13 14:58:00 29.34 kg/m2 [facility] Heart Rate 2018-03-13 14:58:00 65 /min [facility] BP Systolic 2018-03-06 10:30:00 135 mm[Hg] Location: [place]; [place]: [place] [facility] BP Diastolic 2018-03-06 10:30:00 71 mm[Hg] Location: [place]; [place]: [place] [facility] Height 2018-03-06 10:30:00 70 [in_us] [facility] Weight 2018-03-06 10:30:00 206 [lb_av] [facility] Body Mass Index Calculated 2018-03-06 10:30:00 29.56 kg/m2 [facility] Heart Rate 2018-03-06 10:30:00 65 /min [facility] BP Systolic 2017-12-12 13:30:00 112 mm[Hg] Location: [place]; [place]: [place] [facility] BP Diastolic 2017-12-12 13:30:00 66 mm[Hg] Location: [place]; [place]: [place] [facility] Height 2017-12-12 13:30:00 70 [in_us] [facility] Weight 2017-12-12 13:30:00 209.125 [lb_av] [facility] Body Mass Index Calculated 2017-12-12 13:30:00 30.01 kg/m2 [facility] Heart Rate 2017-12-12 13:30:00 71 /min [facility] BP Systolic 2017-07-18 11:25:00 133 mm[Hg] Location: [place]; [place]: [place] [facility] BP Diastolic 2017-07-18 11:25:00 75 mm[Hg] Location: [place]; [place]: [place] [facility] Height 2017-07-18 11:25:00 70 [in_us] [facility] Weight 2017-07-18 11:25:00 203 [lb_av] [facility] Body Mass Index Calculated 2017-07-18 11:25:00 29.13 kg/m2 [facility] Heart Rate 2017-07-18 11:25:00 69 /min [facility] Respiration Rate 2017-07-18 11:25:00 16 /min [facility] Procedures Procedure Date / Time Performed Performing Clinician Sour e Computed tomography of chest without contrast 2020-02-22 00:00:0 0 [facility] Computed tomography of brain without radiopaque contrast 2020-01 00:00:00 [facility] [place] [id number] 2018-07-03 00:00:00 [facility] History of Ear Surgery [facility] History of Hernia Repair Inguinal Sliding [facility] History of Sinus Surgery [facility] Plan of Care Planned Activity Planned Date Details Comments Source Diagnostic Test Pending 2018-07-03 00:00:00 [place] [id number] [code = 84084] [facility] Diagnostic Test Pending 2018-07-03 00:00:00 [place] [id number] [code = 68702] [facility] Future Scheduled Test 2015-11-19 00:00:00 IMM Pneumococcal A ge 65 and Up [code = IMM Pneumococcal Age 65 and Up] [facility] Future Scheduled Test 2000 00:00:00 Screening for kenyon gnant neoplasm of colon (procedure) [code = 498149589] [facility] Instructions Dyspnea [facility] Instructions Pleural Effusion [facility] Encounters Start Date/Time End Date/Time Encounter Type Admission Type [facility] Care Department Encounter ID Source 2020-02-22 18:17:00 2020-02-22 22:45:00 Departed Emergency Room 1 JARRETT WATT [facility] [id number] [facility] 2020-02-21 23:54:00 2020-02-22 00:51:00 Departed Emergency Room [facility] [id number] [facility] 2020-02-21 08:08:00 2020-02-21 09:00:00 Departed Emergency Room 1 YOUSIF CONLEY [facility] [id number] [facility] 2019-05-28 10:30:00 2019-05-28 10:30:00 Appointment; JARRETT ROBBINS M.D. BYRD, MICHAEL, M.D. [facility] Otorhinolaryngology [facility] [id number] [facility] 2019-03-24 14:30:00 2019-03-24 14:30:00 Appointment; JARRETT ROBBINS M.D. BYRD, MICHAEL, M.D. [facility] Otorhinolaryngology [facility] [id number] [facility] 2019-03-18 04:22:00 2019-03-18 07:30:00 Departed Emergency Room 1 JARRETT WATT [facility] [id number] [facility] 2019-02-25 02:56:00 2019-02-25 04:55:00 Departed Emergency Room 1 [place] [facility] [id number] [facility] 2019-01-01 13:00:00 2019-01-01 13:00:00 Appointment; JARRETT ROBBINS M.D. BYRD, MICHAEL, M.D. [facility] [id number] [facility] 2018-11-20 10:30:00 2018-11-20 10:30:00 Appointment; JARRETT ROBBINS M.D. BYRD, MICHAEL, M.D. [facility] [address] [id number] [facility] 2018-09-22 08:50:00 2018-10-21 23:59:00 Discharged Recurring [facility] [id number] [facility] 2018-08-22 11:14:00 2018-09-21 23:59:00 Discharged Recurring [facility] [id number] [facility] 2018-07-29 10:06:00 2018-08-21 23:59:00 Discharged Recurring [facility] [id number] [facility] 2018-08-19 14:52:00 2018-08-19 14:52:00 Registered Clinic 3 MIHAELA BALLARD [facility] [id number] [facility] 2018-07-03 13:00:00 2018-07-03 13:00:00 Appointment; JARRETT ROBBINS M.D. BYRD, MICHAEL, M.D. [facility] Otorhinolaryngology [place] [id number] [facility] 2018-03-13 14:30:00 2018-03-13 14:30:00 Appointment; JARRETT ROBBINS M.D. BYRD, MICHAEL, M.D. [facility] [id number] [facility] 2018-03-06 10:30:00 2018-03-06 10:30:00 Appointment; JARRETT ROBBINS M.D. BYRD, MICHAEL, M.D. [facility] [address] [id number] [facility] 2017-12-12 13:45:00 2017-12-12 13:45:00 Appointment; JARRETT ROBBINS M.D. BYRD, MICHAEL, M.D. [facility] [place] [id number] [facility] 2017-12-09 10:26:00 2017-12-09 10:26:00 Registered Emergency Room [facility] [id number] [facility] 2017-10-11 10:30:00 2017-10-11 10:30:00 Appointment; JARRETT ROBBINS M.D. BYRD, MICHAEL, M.D. [facility] [id number] [facility] 2017-08-02 00:00:00 2017-08-02 00:00:00 Outpatient [facility] [id number] [facility] 2017-07-18 11:00:00 2017-07-18 11:00:00 Appointment; JARRETT ROBBINS M.D. BYRD, MICHAEL, M.D. [facility] [id number] [facility] 2017-05-01 11:13:40 2017-05-01 11:13:40 Outpatient [facility] [id number] [facility] 2017-05-01 11:05:25 2017-05-01 11:05:25 Outpatient [facility] [id number] [facility] 2017-04-12 09:30:00 2017-04-12 09:30:00 Appointment; JARRETT ROBBINS M.D. BYRD, MICHAEL, M.D. [facility] UTP [id number] [facility] 2017-02-14 14:04:40 2017-02-14 14:04:40 Outpatient [facility] [id number] [facility] 2016-07-27 15:45:00 2016-07-27 15:45:00 Appointment; JARRETT ROBBINS M.D. BYRD, MICHAEL, M.D. [facility] UTP [id number] [facility] 2016-02-03 11:00:00 2016-02-03 11:00:00 Appointment; JARRETT ROBBINS M.D. BYRD, MICHAEL, M.D. [facility]TP [id number] [facility] 2015-07-29 10:30:00 2015-07-29 10:30:00 Appointment; JARRETT ROBBINS M.D. BYRD, MICHAEL, M.D. [facility]TP [id number] [facility] Results Test Description Test Time Test Comments Results Result Comments Source CT BRAIN WO 2020-02-25 05:33:00 [facility] [address] [place] [address] Patient Name: HARMAN MUNIZ MR #: [id number] : 1950 Age/Sex: 69/M Req #: [id number] Adm Physician: Ordered by: FREDDY RAMIREZ DO Report #: [id number] Location: ER Room/Bed: Procedure: [id number] CT/CT BRAIN WO Exam Date: 02/25/20 Exam Time: 0420 REPORT STATUS: Signed EXAMINATION: Head CT without contrast. HISTORY:Headache. COMPARISON:None. TECHNIQUE: Multidetector axial images were obtained from the foramen magnum to the vertex without contrast. The images were reconstructed using brain and bone algorithms. Thin section brain images were reformatted into coronal and sagittal planes. Dose modulation, iterative reconstruction, and/or weight based adjustment of the mA/kV was utilized to reduce the radiation dose to as low as reasonably achievable. Intravenous contrast: None IMAGE QUALITY: Suboptimal evaluation particularly at the level of skull base and posterior fossa structures due to streak artifacts. FINDINGS: Skull/scalp: No lytic or blastic. lesions. No surgical changes. Parenchyma: Nonspecific few, scattered supratentorial white matter hypodensity are likely related to small vessel ischemic changes. No acute hemorrhage, mass or acute major vascular territorial infarct. Arteries: No density suggestive of thrombosis. Dural sinuses: No abnormal density suggestive of thrombosis. Ventricles: No hydrocephalus or displacement. Extra-axial spaces: No abnormal density. Brain volume: Mild generalized cerebral volume loss. Craniocervical junction: No mass, Chiari malformation, or basilar invagination. Sella: No mass. Paranasal/mastoid sinuses: Imaged portions unremarkable. IMPRESSION: No acute intracranial abnormality. Mild supratentorial white matter microvascular ischemic changes. Mild generalized cerebral volume loss. Signed by: Dr. Leonela Murcia M.D. on 02/25/2020 5:36 AM Dictated By: LEONELA MURCIA MD 5 Transcribed By: CHUCKY on 02/25/20535 COPY TO: FREDDY RAMIREZ DO CHEST SINGLE (PORTABLE) 2020-02-25 05:11:00 [place] [address] Patient Name: HARMAN MUNIZ MR #: [id number] : 1950 Age/Sex: 69/M Req #: [id number] Adm Physician: Ordered by: FREDDY RAMIREZ DO Report #: [id number] Location: ER Room/Bed: Procedure: [id number] DX/CHEST SINGLE (PORTABLE) Exam Date: Exam Time: REPORT STATUS: Signed EXAMINATION: CHEST SINGLE (PORTABLE) INDICATION: Y SOB COMPARISON: None FINDINGS: AP view TUBES and LINES: None. LUNGS: Lungs are well inflated. There is no evidence of pneumonia or pulmonary edema. PLEURA: No pleural effusion or pneumothorax. HEART AND MEDIASTINUM: The cardiomediastinal silhouette is unremarkable. BONES AND SOFT TISSUES: No acute osseous lesion. Soft tissues are unremarkable. UPPER ABDOMEN: No free air under the diaphragm. IMPRESSION: No acute thoracic abnormality. Signed by: Dr. Paul Turk MD on 02/25/2020 5:12 AM Dictated By: PAUL TURK MD 1 Transcribed By: CHUCKY on 02/25/20511 COPY TO: FREDDY RAMIREZ DO CT CHEST WO 2020-02-22 22:11:00 [facility] [address] [place] [address] Patient Name: HARMAN SHEN MR #: [id number] : 1950 Age/Sex: 69/M Req #: [id number] Adm Physician: Ordered by: JARRETT WATT MD Report #: [id number] Location: ER Room/Bed: Procedure: [id number] CT/CT CHEST WO Exam Date: 02/22/20 Exam [...] WATT MD CHEST SINGLE (PORTABLE) 2020-02-22 19:42:00 [place] [address] Patient Name: HARMAN SHEN MR #: [id number] : 1950 Age/Sex: 69/M Req #: [id number] Adm Physician: Ordered by: JARRETT WATT MD Report #: [id number] Location: ER Room/Bed: Procedure: [id number] DX/CHEST SINGLE (PORTABLE) Exam Date: 02/22/20 Exam [...] Count (test code = 6690-2) 5.67 4.8-10.8 [facility] count (number/volume)2020-02-22 18:27:00* Test Item Value Reference Range Interpretation Comments Red Blood Count (test code = 789-8) 4.67 4.3-5.7 [facility] measurement (moles/volume)2020-02-22 18:27:00* Test Item Value Reference Range Interpretation Comments Hemoglobin (test code = 53083-4) 14.2 14.0-18.0 [facility] hematocrit (volume fraction)2020-02-22 18:27:00* Test Item Value Reference Range Interpretation Comments Hematocrit (test code = 4544-3) 42.6 38.2-49.6 [facility] eryth[facility] mean corpuscular [id number] 18:27:00* Test Item Value Reference Range Interpretation Comments Mean Corpuscular Volume (test code = 787-2) 91.2 81-99 [facility] mean corpuscular hemoglobin (mass per erythrocyte)2020-02-22 18:27:00* Test Item Value Reference Range Interpretation Comments Mean Corpuscular Hemoglobin (test code = 785-6) 30.4 28-32 [facility] eryth[facility] mean corpuscular hemoglobin concentration measurement (mass/volume)2020-02-22 18:27:00* Test Item Value Reference Range Interpretation Comments Mean Corpuscular Hemoglobin Concent (test code = 786-4) 33.3 31-35 [facility] HospitalRDW [id number] 18:27:00* Test Item Value Reference Range Interpretation Comments Red Cell Distribution Width (test code = 06930-0) 12.5 11.7 -14.4 [facility] platelet count (count/volume)2020-02-22 18:27:00* Test Item Value Reference Range Interpretation Comments Platelet Count (test code = 777-3) 163 140-360 [facility] segmented neutrophil count as percentage of total [id number] 18:27:00* Test Item Value Reference Range Interpretation Comments Neutrophils (%) (Auto) (test code = 08428-4) 58.8 38.7-80.0 [facility] lymphocyte count as percentage ot total [id number] 18:27:00* Test Item Value Reference Range Interpretation Comments Lymphocytes (%) (Auto) (test code = 736-9) 29.3 18.0-39.1 [facility] monocyte count as percentage of total [id number] 18:27:00* Test Item Value Reference Range Interpretation Comments Monocytes (%) (Auto) (test code = 5905-5) 9.2 4.4-11.3 [facility] eosinophil count as percentage of total [id number] 18:27:00* Test Item Value Reference Range Interpretation Comments Eosinophils (%) (Auto) (test code = 713-8) 1.9 0.0-6.0 [facility] basophil count as percentage of total ibpwbjreme3977-01-17 18:27:00* Test Item Value Reference Range Interpretation Comments Basophils (%) (Auto) (test code = 706-2) 0.4 0.0-1.0 [facility] HospitalFluoroscopic procedure less than one hour [id number] 18:27:00* Test Item Value Reference Range Interpretation Comments IM GRANULOCYTES % (test code = IM GRANULOCYTES %) 0.4 0.0- 1.0 [facility] HospitalAutomated blood neutrophil count 2020-02-22 18:27:00* Test Item Value Reference Range Interpretation Comments Neutrophils # (Auto) (test code = 751-8) 3.3 2.1-6.9 [facility] HospitalBlood lymphocytes count (number/volume) 2020-02-22 18:27:00* Test Item Value Reference Range Interpretation Comments Lymphocytes # (Auto) (test code = 94726-0) 1.7 1.0-3.2 [facility]Bl[facility] monocytes automated count (number/volume)2020-02-22 18:27:00* Test Item Value Reference Range Interpretation Comments Monocytes # (Auto) (test code = 742-7) 0.5 0.2-0.8 [facility] HospitalAutomated blood eosinophil count 2020-02-22 18:27:00* Test Item Value Reference Range Interpretation Comments Eosinophils # (Auto) (test code = 711-2) 0.1 0.0-0.4 [facility] HospitalAutomated blood basophil count (count/volume)2020-02-22 18:27:00* Test Item Value Reference Range Interpretation Comments Basophils # (Auto) (test code = 704-7) 0.0 0.0-0.1 [facility] HospitalFluoroscopic procedure less than one hour gcvozfgv5921-62-74 18:27:00* Test Item Value Reference Range Interpretation Comments Absolute Immature Granulocyte (auto (naty t code = Absolute Immature Granulocyte (auto) 0.02 0-0.1 [facility]er[facility] sodium measurement (moles/volume)2020-02-22 18:27:00* Test Item Value Reference Range Interpretation Comments Sodium Level (test code = 2951-2) 137 136-145 [facility] Hospitalerum or plasma potassium measurement (moles/volume)2020-02-22 18:27:00* Test Item Value Reference Range Interpretation Comments Potassium Level (test code = 2823-3) 3.9 3.5-5.1 [facility] Hospitalerum or plasma chloride measurement (moles/volume)2020-02-22 18:27:00* Test Item Value Reference Range Interpretation Comments Chloride Level (test code = 2075-0) 105 98-107 [facility] Hospitalerum or plasma carbon dioxide, total measurement (moles/volume)2020-02-22 18:27:00* Test Item Value Reference Range Interpretation Comments Carbon Dioxide Level (test code = 2028-9) 21 22-29 [facility] Hospitalerum or plasma anion mox4842-21-35 18:27:00* Test Item Value Reference Range Interpretation Comments Anion Gap (test code = 56834-4) 14.9 8-16 [facility] Hospitalerum or plasma urea nitrogen measurement (mass/volume)2020-02-22 18:27:00* Test Item Value Reference Range Interpretation Comments Blood Urea Nitrogen (test code = 3094-0) 17 7-26 [facility] Hospitalerum or plasma creatinine measurement (mass/volume)2020-02-22 18:27:00* Test Item Value Reference Range Interpretation Comments Creatinine (test code = 2160-0) 0.93 0.72-1.25 [facility] Hospitalerum or plasma urea nitrogen/creatinine mass epzcs0864-34-89 18:27:00* Test Item Value Reference Range Interpretation Comments BUN/Creatinine Ratio (test code = 3097-3) 18 6-25 [facility] HospitalEstimated glomerular filtration rate (GFR) jsyvwaliqhron3386-12-99 18:27:00* Test Item Value Reference Range Interpretation Comments Estimat Glomerular Filtration Rate (test code = 273609739) > 60 >60 Ranges were taken from the National Kidney Disease Education Program and the [place] [facility] Kid[facility] literature.Reference ranges:60 or greater: Uccbpg78-61 ( for 3 consecutive months): Chronic kidney disease 15 or less: Kidney failureMemorial Hermann Greater Heights HospitalGlucose hdyleigijgp6471-70-49 18:27:00* Test Item Value Reference Range Interpretation Comments Glucose Level (test code = SPW2150) 148 74-118 [facility] Hospitaler[facility] or plasma calcium measurement (mass/volume)2020-02-22 18:27:00* Test Item Value Reference Range Interpretation Comments Calcium Level (test code = 59491-3) 8.8 8.4-10.2 [facility] Hospitalerum or plasma creatine kinase measurement (enzymatic activity/volume)2020-02-22 18:27:00* Test Item Value Reference Range Interpretation Comments Creatine Kinase (test code = 2157-6) 53 30-200 [facility] Hospitalerum or plasma creatine kinase MB measurement (mass/volume)2020-02-22 18:27:00* Test Item Value Reference Range Interpretation Comments Creatine Kinase MB (test code = 72318-9) 1.10 0-5.0 [facility] HospitalTroponin I measurement by highly sensitive enzyme umgmlzzgfzy2987-31-00 18:27:00* Test Item Value Reference Range Interpretation Comments Troponin I (test code = 33211-2) 0.005 0-0.300 [facility] HospitalCT BRAIN [id number] 08:45:00 [place] [address] Patient Name: HARMAN SHEN MR #: [id number] : 1950 Age/Sex: 69/M Req #: [id number] Adm Physician: Ordered by: YOUSIF CONLEY DO Report #: [id number] Location: ER Room/Bed: Procedure: [id number] CT/CT BRAIN WO Exam Date: 02/21/20 Exam Time: 811 REPORT STATUS: Signed Examination: CT head wi [...] disease. No masses, hemorrhage, or acute or information management officer dario cortical based vascular insults. Suprasellar region: [...] AM Dictated By: JUAN CARLOS TESFAYE MD Transcribed By: CHUCKY on 02/21/20 084 8 COPY TO: YOUSIF CONLEY DO CHEST SINGLE (PORTABLE)2020-02-21 08:16:00 [place] [address] Patient Name: HARMAN MUNIZ MR #: [id number] : 1950 Age/Sex: 69/M Req #: [id number] Adm Physician: Ordered by: YOUSIF CONLEY DO Report #: [id number] Location: ER Room/Bed: Procedure: [id number] DX/CHES T SINGLE (PORTABLE) Exam Date: 02/21/20 [...] 8:17 AM Dictated By: YAQUELIN BARKLEY MD [facility] Signed By: YAQUELIN BARKLEY MD on 02/21/20816 Transcribed By: CHUCKY on 02/21/20816 COPY TO: YOUSIF CONLEY DO Blood leukocytes automated count (number/volume)2020-02-21 07:44:00* Test Item Value Reference Range Interpretation Comments White Blood Count (test code = 6690-2) 5.29 4.8-10.8 [facility] HospitalBlood erythrocytes automated count (number/volume)2020-02-21 07:44:00* Test Item Value Reference Range Interpretation Comments Red Blood Count (test code = 789-8) 4.68 4.3-5.7 [facility] HospitalBlood hemoglobin measurement (moles/volume)2020-02-21 07:44:00* Test Item Value Reference Range Interpretation Comments Hemoglobin (test code = 17901-9) 14.2 14.0-18.0 [facility] HospitalAutomated blood hematocrit (volume fraction)2020-02-21 07:44:00* Test Item Value Reference Range Interpretation Comments Hematocrit (test code = 4544-3) 42.6 38.2-49.6 [facility] HospitalAutomated erythrocyte mean corpuscular oyotpv4987-79-97 07:44:00* Test Item Value Reference Range Interpretation Comments Mean Corpuscular Volume (test code = 787-2) 91.0 81-99 [facility] HospitalAutomated erythrocyte mean corpuscular hemoglobin (mass per erythrocyte)2020-02-21 07:44:00* Test Item Value Reference Range Interpretation Comments Mean Corpuscular Hemoglobin (test code = 785-6) 30.3 28-32 [facility] HospitalAutomated erythrocyte mean corpuscular hemoglobin concentration measurement (mass/volume)2020-02-21 07:44:00* Test Item Value Reference Range Interpretation Comments Mean Corpuscular Hemoglobin Concent (test code = 786-4) 33.3 31-35 [facility] HospitalRDW GpmCj-Jdx9279-38-30 07:44:00* Test Item Value Reference Range Interpretation Comments Red Cell Distribution Width (test code = 04991-3) 12.7 11.7 -14.4 [facility] HospitalAutunc medical centered blood platelet count (count/volume)2020-02-21 07:44:00* Test Item Value Reference Range Interpretation Comments Platelet Count (test code = 777-3) 147 140-360 [facility] HospitalAutomated blood segmented neutrophil count as percentage of total oyfzvgrjem8128-72-02 07:44:00* Test Item Value Reference Range Interpretation Comments Neutrophils (%) (Auto) (test code = 00065-2) 63.8 38.7-80.0 [facility] HospitalAutomated blood lymphocyte count as percentage ot total wwjbxfdpvb9086-86-62 07:44:00* Test Item Value Reference Range Interpretation Comments Lymphocytes (%) (Auto) (test code = 736-9) 25.9 18.0-39.1 [facility] HospitalAutomated blood monocyte count as percentage of total bbsyexkpdc4236-22-16 07:44:00* Test Item Value Reference Range Interpretation Comments Monocytes (%) (Auto) (test code = 5905-5) 7.6 4.4-11.3 [facility] HospitalAutomated blood eosinophil count as percentage of total lxvogfsnym9725-57-42 07:44:00* Test Item Value Reference Range Interpretation Comments Eosinophils (%) (Auto) (test code = 713-8) 2.1 0.0-6.0 [facility] HospitalAutomated blood basophil count as percentage of total usdfksdsvj3446-90-38 07:44:00* Test Item Value Reference Range Interpretation Comments Basophils (%) (Auto) (test code = 706-2) 0.4 0.0-1.0 [facility] HospitalFluoroscopic procedure less than one hour vkjezbgz3915-32-94 07:44:00* Test Item Value Reference Range Interpretation Comments IM GRANULOCYTES % (test code = IM GRANULOCYTES %) 0.2 0.0- 1.0 [facility] HospitalAutomated blood neutrophil count 2020-02-21 07:44:00* Test Item Value Reference Range Interpretation Comments Neutrophils # (Auto) (test code = 751-8) 3.4 2.1-6.9 [facility] HospitalBlood lymphocytes count (number/volume) 2020-02-21 07:44:00* Test Item Value Reference Range Interpretation Comments Lymphocytes # (Auto) (test code = 24201-8) 1.4 1.0-3.2 [facility] HospitalBlood monocytes automated count (number/volume)2020-02-21 07:44:00* Test Item Value Reference Range Interpretation Comments Monocytes # (Auto) (test code = 742-7) 0.4 0.2-0.8 [facility] HospitalAutomated blood eosinophil count 2020-02-21 07:44:00* Test Item Value Reference Range Interpretation Comments Eosinophils # (Auto) (test code = 711-2) 0.1 0.0-0.4 [facility] HospitalAutomated blood basophil count (count/volume)2020-02-21 07:44:00* Test Item Value Reference Range Interpretation Comments Basophils # (Auto) (test code = 704-7) 0.0 0.0-0.1 [facility] HospitalFluoroscopic procedure less than one hour pdbepthy1089-35-57 07:44:00* Test Item Value Reference Range Interpretation Comments Absolute Immature Granulocyte (auto (naty t code = Absolute Immature Granulocyte (auto) 0.01 0-0.1 [facility] Hospitalerum or plasma sodium measurement (moles/volume)2020-02-21 07:44:00* Test Item Value Reference Range Interpretation Comments Sodium Level (test code = 2951-2) 138 136-145 [facility] Hospitalerum or plasma potassium measurement (moles/volume)2020-02-21 07:44:00* Test Item Value Reference Range Interpretation Comments Potassium Level (test code = 2823-3) 4.0 3.5-5.1 [facility] Hospitalerum or plasma chloride measurement (moles/volume)2020-02-21 07:44:00* Test Item Value Reference Range Interpretation Comments Chloride Level (test code = 2075-0) 106 98-107 [facility] Hospitalerum or plasma carbon dioxide, total measurement (moles/volume)2020-02-21 07:44:00* Test Item Value Reference Range Interpretation Comments Carbon Dioxide Level (test code = 2028-9) 20 22-29 [facility] Hospitalerum or plasma anion kcs6566-61-28 07:44:00* Test Item Value Reference Range Interpretation Comments Anion Gap (test code = 36851-9) 16.0 8-16 [facility] Hospitalerum or plasma urea nitrogen measurement (mass/volume)2020-02-21 07:44:00* Test Item Value Reference Range Interpretation Comments Blood Urea Nitrogen (test code = 3094-0) 13 7-26 [facility] Hospitalerum or plasma creatinine measurement (mass/volume)2020-02-21 07:44:00* Test Item Value Reference Range Interpretation Comments Creatinine (test code = 2160-0) 0.99 0.72-1.25 [facility] Hospitalerum or plasma urea nitrogen/creatinine mass imale6137-01-60 07:44:00* Test Item Value Reference Range Interpretation Comments BUN/Creatinine Ratio (test code = 3097-3) 13 6-25 [facility] HospitalEstimated glomerular filtration rate (GFR) beiqdabfylxdw1796-03-56 07:44:00* Test Item Value Reference Range Interpretation Comments Estimat Glomerular Filtration Rate (test code = 127685296) > 60 >60 Ranges were taken from the National Kidney Disease Education Program and the [facility] Foundation literature.Reference ranges:60 or greater: Ddhpgg59-88 ( for 3 consecutive months): Chronic kidney disease 15 or less: Kidney failureMemorial Hermann Greater Heights HospitalGlucose ggiampysihu9346-49-99 07:44:00* Test Item Value Reference Range Interpretation Comments Glucose Level (test code = PYQ9057) 269 74-118 [facility] Hospitalerum or plasma calcium measurement (mass/volume)2020-02-21 07:44:00* Test Item Value Reference Range Interpretation Comments Calcium Level (test code = 16205-2) 8.7 8.4-10.2 [facility] Hospitalerum or plasma total bilirubin measurement (mass/volume)2020-02-21 07:44:00* Test Item Value Reference Range Interpretation Comments Total Bilirubin (test code = 1975-2) 0.6 0.2-1.2 [facility] HospitalFluoroscopic procedure less than one hour gkwnuhdp8314-15-49 07:44:00* Test Item Value Reference Range Interpretation Comments Aspartate Amino Transf (AST/SGOT) (test code = Aspartate Amino Transf (AST/SGOT)) 20 5-34 [facility] Hospitalerum or plasma alanine aminotransferase measurement (enzymatic activity/volume)2020-02-21 07:44:00* Test Item Value Reference Range Interpretation Comments Alanine Aminotransferase (ALT/SGPT) (test code = 1742-6) 28 0-55 [facility] Hospitalerum or plasma protein measurement (mass/volume)2020-02-21 07:44:00* Test Item Value Reference Range Interpretation Comments Total Protein (test code = 2885-2) 6.4 6.5-8.1 [facility] Hospitalerum or plasma albumin measurement (mass/volume)2020-02-21 07:44:00* Test Item Value Reference Range Interpretation Comments Albumin (test code = 1751-7) 3.5 3.5-5.0 [facility] HospitalPlasma globulin measurement (mass/volume) 2020-02-21 07:44:00* Test Item Value Reference Range Interpretation Comments Globulin (test code = 00828-5) 2.9 2.3-3.5 [facility] Hospitalerum or plasma albumin/globulin mass fitgl8642-94-41 07:44:00* Test Item Value Reference Range Interpretation Comments Albumin/Globulin Ratio (test code = 1759-0) 1.2 0.8-2.0 [facility] Hospitalerum or plasma alkaline phosphatase measurement (enzymatic activity/volume)2020-02-21 07:44:00* Test Item Value Reference Range Interpretation Comments Alkaline Phosphatase (test code = 6768-6) 69 40-150 [facility] HospitalBlood leukocytes automated count (number/volume)2020-02-21 07:44:00* Test Item Value Reference Range Interpretation Comments White Blood Count (test code = 6690-2) 5.29 4.8-10.8 [facility] HospitalBlood erythrocytes automated count (number/volume)2020-02-21 07:44:00* Test Item Value Reference Range Interpretation Comments Red Blood Count (test code = 789-8) 4.68 4.3-5.7 [facility] HospitalBlood hemoglobin measurement (moles/volume)2020-02-21 07:44:00* Test Item Value Reference Range Interpretation Comments Hemoglobin (test code = 13295-1) 14.2 14.0-18.0 [facility] HospitalAutomated blood hematocrit (volume fraction)2020-02-21 07:44:00* Test Item Value Reference Range Interpretation Comments Hematocrit (test code = 4544-3) 42.6 38.2-49.6 [facility] HospitalAutomated erythrocyte mean corpuscular kgzxdc5584-04-69 07:44:00* Test Item Value Reference Range Interpretation Comments Mean Corpuscular Volume (test code = 787-2) 91.0 81-99 [facility] HospitalAutomated erythrocyte mean corpuscular hemoglobin (mass per erythrocyte)2020-02-21 07:44:00* Test Item Value Reference Range Interpretation Comments Mean Corpuscular Hemoglobin (test code = 785-6) 30.3 28-32 [facility] HospitalAutomated erythrocyte mean corpuscular hemoglobin concentration measurement (mass/volume)2020-02-21 07:44:00* Test Item Value Reference Range Interpretation Comments Mean Corpuscular Hemoglobin Concent (test code = 786-4) 33.3 31-35 [facility] HospitalRDW GdpEn-Ppn5946-97-30 07:44:00* Test Item Value Reference Range Interpretation Comments Red Cell Distribution Width (test code = 30612-9) 12.7 11.7 -14.4 [facility] HospitalAutomated blood platelet count (count/volume)2020-02-21 07:44:00* Test Item Value Reference Range Interpretation Comments Platelet Count (test code = 777-3) 147 140-360 [facility] HospitalAutomated blood segmented neutrophil count as percentage of total phhdyclaid5050-16-11 07:44:00* Test Item Value Reference Range Interpretation Comments Neutrophils (%) (Auto) (test code = 50856-2) 63.8 38.7-80.0 [facility] HospitalAutomated blood lymphocyte count as percentage ot total annjzotpgs6624-78-30 07:44:00* Test Item Value Reference Range Interpretation Comments Lymphocytes (%) (Auto) (test code = 736-9) 25.9 18.0-39.1 [facility] HospitalAutomated blood monocyte count as percentage of total cpooqrumay9275-44-74 07:44:00* Test Item Value Reference Range Interpretation Comments Monocytes (%) (Auto) (test code = 5905-5) 7.6 4.4-11.3 [facility] HospitalAutomated blood eosinophil count as percentage of total zbbkkmhzgq0884-10-37 07:44:00* Test Item Value Reference Range Interpretation Comments Eosinophils (%) (Auto) (test code = 713-8) 2.1 0.0-6.0 [facility] HospitalAutomated blood basophil count as percentage of total kepoecrguy2667-28-52 07:44:00* Test Item Value Reference Range Interpretation Comments Basophils (%) (Auto) (test code = 706-2) 0.4 0.0-1.0 [facility] HospitalFluoroscopic procedure less than one hour meelzcfm5322-04-66 07:44:00* Test Item Value Reference Range Interpretation Comments IM GRANULOCYTES % (test code = IM GRANULOCYTES %) 0.2 0.0- 1.0 [facility] HospitalAutomated blood neutrophil count 2020-02-21 07:44:00* Test Item Value Reference Range Interpretation Comments Neutrophils # (Auto) (test code = 751-8) 3.4 2.1-6.9 [facility] HospitalBlood lymphocytes count (number/volume) 2020-02-21 07:44:00* Test Item Value Reference Range Interpretation Comments Lymphocytes # (Auto) (test code = 64904-5) 1.4 1.0-3.2 [facility] HospitalBlood monocytes automated count (number/volume)2020-02-21 07:44:00* Test Item Value Reference Range Interpretation Comments Monocytes # (Auto) (test code = 742-7) 0.4 0.2-0.8 [facility] HospitalAutomated blood eosinophil count 2020-02-21 07:44:00* Test Item Value Reference Range Interpretation Comments Eosinophils # (Auto) (test code = 711-2) 0.1 0.0-0.4 [facility] HospitalAutomated blood basophil count (count/volume)2020-02-21 07:44:00* Test Item Value Reference Range Interpretation Comments Basophils # (Auto) (test code = 704-7) 0.0 0.0-0.1 [facility] HospitalFluoroscopic procedure less than one hour aptlwevm4752-55-18 07:44:00* Test Item Value Reference Range Interpretation Comments Absolute Immature Granulocyte (auto (naty t code = Absolute Immature Granulocyte (auto) 0.01 0-0.1 [facility] Hospitalerum or plasma sodium measurement (moles/volume)2020-02-21 07:44:00* Test Item Value Reference Range Interpretation Comments Sodium Level (test code = 2951-2) 138 136-145 [facility] Hospitalerum or plasma potassium measurement (moles/volume)2020-02-21 07:44:00* Test Item Value Reference Range Interpretation Comments Potassium Level (test code = 2823-3) 4.0 3.5-5.1 [facility] Hospitalerum or plasma chloride measurement (moles/volume)2020-02-21 07:44:00* Test Item Value Reference Range Interpretation Comments Chloride Level (test code = 2075-0) 106 98-107 [facility] Hospitalerum or plasma carbon dioxide, total measurement (moles/volume)2020-02-21 07:44:00* Test Item Value Reference Range Interpretation Comments Carbon Dioxide Level (test code = 2028-9) 20 - [facility] Hospitalerum or plasma anion vgd8881-51-01 07:44:00* Test Item Value Reference Range Interpretation Comments Anion Gap (test code = 05472-3) 16.0 8-16 [facility] Hospitalerum or plasma urea nitrogen measurement (mass/volume)2020-02-21 07:44:00* Test Item Value Reference Range Interpretation Comments Blood Urea Nitrogen (test code = 3094-0) 13 7-26 [facility] Hospitalerum or plasma creatinine measurement (mass/volume)2020-02-21 07:44:00* Test Item Value Reference Range Interpretation Comments Creatinine (test code = 2160-0) 0.99 0.72-1.25 [facility] Hospitalerum or plasma urea nitrogen/creatinine mass yirfs1002-89-38 07:44:00* Test Item Value Reference Range Interpretation Comments BUN/Creatinine Ratio (test code = 3097-3) 13 6-25 [facility] HospitalEstimated glomerular filtration rate (GFR) eeazmgpkjiktu7937-04-41 07:44:00* Test Item Value Reference Range Interpretation Comments Estimat Glomerular Filtration Rate (test code = 915877643) > 60 >60 Ranges were taken from the National Kidney Disease Education Program and the [place] [facility] literature.Reference ranges:60 or greater: Pkplbd95-10 ( for 3 consecutive months): Chronic kidney disease 15 or less: Kidney failureMemorial Hermann Greater Heights HospitalGlucose ttxombwoope3545-30-18 07:44:00* Test Item Value Reference Range Interpretation Comments Glucose Level (test code = XYS2924) 269 74-118 [facility] Hospitalerum or plasma calcium measurement (mass/volume)2020-02-21 07:44:00* Test Item Value Reference Range Interpretation Comments Calcium Level (test code = 34011-2) 8.7 8.4-10.2 [facility] Hospitalerum or plasma total bilirubin measurement (mass/volume)2020-02-21 07:44:00* Test Item Value Reference Range Interpretation Comments Total Bilirubin (test code = 1975-2) 0.6 0.2-1.2 [facility] HospitalFluoroscopic procedure less than one hour lhopncqd2333-21-13 07:44:00* Test Item Value Reference Range Interpretation Comments Aspartate Amino Transf (AST/SGOT) (test code = Aspartate Amino Transf (AST/SGOT)) 20 5-34 [facility] Hospitalerum or plasma alanine aminotransferase measurement (enzymatic activity/volume)2020-02-21 07:44:00* Test Item Value Reference Range Interpretation Comments Alanine Aminotransferase (ALT/SGPT) (test code = 1742-6) 28 0-55 [facility] Hospitalerum or plasma protein measurement (mass/volume)2020-02-21 07:44:00* Test Item Value Reference Range Interpretation Comments Total Protein (test code = 2885-2) 6.4 6.5-8.1 [facility] Hospitalerum or plasma albumin measurement (mass/volume)2020-02-21 07:44:00* Test Item Value Reference Range Interpretation Comments Albumin (test code = 1751-7) 3.5 3.5-5.0 [facility] HospitalPlasma globulin measurement (mass/volume) 2020-02-21 07:44:00* Test Item Value Reference Range Interpretation Comments Globulin (test code = 18887-0) 2.9 2.3-3.5 [facility] Hospitalerum or plasma albumin/globulin mass logqk6412-96-76 07:44:00* Test Item Value Reference Range Interpretation Comments Albumin/Globulin Ratio (test code = 1759-0) 1.2 0.8-2.0 [facility] Hospitalerum or plasma alkaline phosphatase measurement (enzymatic activity/volume)2020-02-21 07:44:00* Test Item Value Reference Range Interpretation Comments Alkaline Phosphatase (test code = 6768-6) 69 40-150 [facility] Hospitalerum or plasma total bilirubin measurement (mass/volume)2020-02-21 07:44:00* Test Item Value Reference Range Interpretation Comments Total Bilirubin (test code = 1975-2) 0.6 0.2-1.2 [facility] HospitalFluoroscopic procedure less than one hour emkdzprj5324-11-82 07:44:00* Test Item Value Reference Range Interpretation Comments Aspartate Amino Transf (AST/SGOT) (test code = Aspartate Amino Transf (AST/SGOT)) 20 5-34 [facility]er[facility] or plasma alanine aminotransferase measurement (enzymatic activity/volume)2020-02-21 07:44:00* Test Item Value Reference Range Interpretation Comments Alanine Aminotransferase (ALT/SGPT) (test code = 1742-6) 28 0-55 [facility] Hospitalerum or plasma protein measurement (mass/volume)2020-02-21 07:44:00* Test Item Value Reference Range Interpretation Comments Total Protein (test code = 2885-2) 6.4 6.5-8.1 [facility] Hospitalerum or plasma albumin measurement (mass/volume)2020-02-21 07:44:00* Test Item Value Reference Range Interpretation Comments Albumin (test code = 1751-7) 3.5 3.5-5.0 [facility] HospitalPlasma globulin measurement (mass/volume) 2020-02-21 07:44:00* Test Item Value Reference Range Interpretation Comments Globulin (test code = 50812-1) 2.9 2.3-3.5 [facility] Hospitalerum or plasma albumin/globulin mass ikoue5756-77-18 07:44:00* Test Item Value Reference Range Interpretation Comments Albumin/Globulin Ratio (test code = 1759-0) 1.2 0.8-2.0 [facility] Hospitalerum or plasma alkaline phosphatase measurement (enzymatic activity/volume)2020-02-21 07:44:00* Test Item Value Reference Range Interpretation Comments Alkaline Phosphatase (test code = 6768-6) 69 40-150 [facility] NZVUN3241-70-89 06:03:00 [facility] [address] [address] Patient Name: HARMAN MUNIZ MR #: [id number] : 1950 Age/Sex: 68/M Req #: [id number] Adm Physician: Ordered by: JARRETT WATT MD Report #: [id number] Location: ER Room/Bed: Procedure: DX/CHEST 2 VIEWS Exam Date: 03/18/19 Exam Ti me: 0538 REPORT STATUS: Signed E XAMINATION: CHEST 2 VIEWS INDICATION: sob [id number] 0538 Y COMPARISON: 02/25/2019 FINDINGS: PA and [...] COPY TO: JARRETT WATT MD B-Type Natriuretic Vgmwxey8789-48-39 05:21:00* Test Item Value Reference Range Interpretation Comments B-Type Natriuretic Peptide (test code = 30072-5) < 10.0 0-100 [facility] HospitalD-Dimer Quantitative (PE/DVT)2019-03-18 05:12:00* Test Item Value Reference Range Interpretation Comments D-Dimer Quantitative (PE/DVT) (test code = 05750-5) 0.39 0. 00-0.45 [facility] HospitalCreatine Kinase QW1221-85-79 05:12:00* Test Item Value Reference Range Interpretation Comments Creatine Kinase MB (test code = 76952-6) 0.80 0-5.0 [facility] HospitalTroponin Y9322-97-31 05:12:00* Test Item Value Reference Range Interpretation Comments Troponin I (test code = UCA0962) 0.005 0-0.300 [facility] Hospitalodium Kltdm9661-97-92 05:11:00* Test Item Value Reference Range Interpretation Comments Sodium Level (test code = 2951-2) 137 136-145 [facility] HospitalPotassium Bssbg1588-03-63 05:11:00* Test Item Value Reference Range Interpretation Comments Potassium Level (test code = 2823-3) 4.4 3.5-5.1 [facility] HospitalChloride Vfpbr2817-91-99 05:11:00* Test Item Value Reference Range Interpretation Comments Chloride Level (test code = 2075-0) 100 98-107 [facility] HospitalCarbon Dioxide Pvapv7072-69-86 05:11:00* Test Item Value Reference Range Interpretation Comments Carbon Dioxide Level (test code = 2028-9) 28 22-29 [facility] HospitalAnion Nws1041-15-22 05:11:00* Test Item Value Reference Range Interpretation Comments Anion Gap (test code = 73261-0) 13.4 8-16 [facility] HospitalBlood Urea Xkzpcwov3832-59-02 05:11:00* Test Item Value Reference Range Interpretation Comments Blood Urea Nitrogen (test code = 3094-0) 16 7-26 [facility] HospitalCreatinine2019-09-25 05:11:00* Test Item Value Reference Range Interpretation Comments Creatinine (test code = 2160-0) 0.84 0.72-1.25 [facility] HospitalBUN/Creatinine Tvpxr1565-09-18 05:11:00* Test Item Value Reference Range Interpretation Comments BUN/Creatinine Ratio (test code = 3097-3) 19 6-25 [facility] HospitalEstimat Glomerular Filtration Rate 2019-03-18 05:11:00* Test Item Value Reference Range Interpretation Comments Estimat Glomerular Filtration Rate (test code = 230229115) > 60 >60 Ranges were taken from the National Kidney Disease Education Program and the [facility] Kidney Foundation literature.Reference ranges:60 or greater: Afcsjo35-96 ( for 3 consecutive months): Chronic kidney disease 15 or less: Kidney failureMemorial Hermann Greater Heights HospitalGlucose Clsgx1408-75-75 05:11:00* Test Item Value Reference Range Interpretation Comments Glucose Level (test code = ZSA9201) 137 74-118 H [facility] HospitalCalcium Texnx1847-89-31 05:11:00* Test Item Value Reference Range Interpretation Comments Calcium Level (test code = 83780-0) 9.5 8.4-10.2 [facility] HospitalTotal Ziriyuarm3669-98-89 05:11:00* Test Item Value Reference Range Interpretation Comments Total Bilirubin (test code = 1975-2) 0.8 0.2-1.2 [facility] HospitalAspartate Amino Transf (AST/SGOT) 2019-03-18 05:11:00* Test Item Value Reference Range Interpretation Comments Aspartate Amino Transf (AST/SGOT) (test code = Aspartate Amino Transf (AST/SGOT)) 25 5-34 [facility] HospitalAlanine Aminotransferase (ALT/SGPT) 2019-03-18 05:11:00* Test Item Value Reference Range Interpretation Comments Alanine Aminotransferase (ALT/SGPT) (test code = 1742-6) 29 0-55 [facility] HospitalTotal Ilbmpqy1023-55-07 05:11:00* Test Item Value Reference Range Interpretation Comments Total Protein (test code = 2885-2) 6.6 6.5-8.1 [facility] HospitalAlbumin2019-09-25 05:11:00* Test Item Value Reference Range Interpretation Comments Albumin (test code = 1751-7) 3.5 3.5-5.0 [facility] HospitalGlobulin2019-09-25 05:11:00* Test Item Value Reference Range Interpretation Comments Globulin (test code = 64103-1) 3.1 2.3-3.5 [facility] HospitalAlbumin/Globulin Lnhed1995-57-01 05:11:00 * Test Item Value Reference Range Interpretation Comments Albumin/Globulin Ratio (test code = 1759-0) 1.1 0.8-2.0 [facility] HospitalAlkaline Uksrntbzapc3660-60-10 05:11:00* Test Item Value Reference Range Interpretation Comments Alkaline Phosphatase (test code = 6768-6) 86 40-150 [facility] HospitalCreatine Oozmhu3368-45-32 05:11:00* Test Item Value Reference Range Interpretation Comments Creatine Kinase (test code = 2157-6) 52 30-200 [facility] HospitalWhite Blood Jlumf4605-42-05 04:48:00* Test Item Value Reference Range Interpretation Comments White Blood Count (test code = 6690-2) 5.82 4.8-10.8 [facility] HospitalRed Blood Txwul1147-05-01 04:48:00* Test Item Value Reference Range Interpretation Comments Red Blood Count (test code = 789-8) 4.71 4.3-5.7 [facility] HospitalHemoglobin2019-09-25 04:48:00* Test Item Value Reference Range Interpretation Comments Hemoglobin (test code = 85674-2) 14.5 14.0-18.0 [facility] HospitalHematocrit2019-09-25 04:48:00* Test Item Value Reference Range Interpretation Comments Hematocrit (test code = 4544-3) 42.5 38.2-49.6 [facility] HospitalMean Corpuscular Ixbyev2986-08-11 04:48:00* Test Item Value Reference Range Interpretation Comments Mean Corpuscular Volume (test code = 787-2) 90.2 81-99 [facility] HospitalMean Corpuscular Bpgbqxhcio5282-93-23 04:48:00* Test Item Value Reference Range Interpretation Comments Mean Corpuscular Hemoglobin (test code = 785-6) 30.8 28-32 [facility] HospitalMean Corpuscular Hemoglobin Concent 2019-03-18 04:48:00* Test Item Value Reference Range Interpretation Comments Mean Corpuscular Hemoglobin Concent (test code = 786-4) 34.1 31-35 [facility] HospitalRed Cell Distribution Vbyyw5044-84-73 04:48:00* Test Item Value Reference Range Interpretation Comments Red Cell Distribution Width (test code = 10676-8) 11.9 11.7 -14.4 [facility] HospitalPlatelet Gndno0314-09-34 04:48:00* Test Item Value Reference Range Interpretation Comments Platelet Count (test code = 777-3) 225 140-360 [facility] HospitalNeutrophils (%) (Auto)2019-03-18 04:48:00 * Test Item Value Reference Range Interpretation Comments Neutrophils (%) (Auto) (test code = 53485-9) 46.7 38.7-80.0 [facility] HospitalLymphocytes (%) (Auto)2019-03-18 04:48:00 * Test Item Value Reference Range Interpretation Comments Lymphocytes (%) (Auto) (test code = 736-9) 39.2 18.0-39.1 H [facility] HospitalMonocytes (%) (Auto)2019-03-18 04:48:00* Test Item Value Reference Range Interpretation Comments Monocytes (%) (Auto) (test code = 5905-5) 9.8 4.4-11.3 [facility] HospitalEosinophils (%) (Auto)2019-03-18 04:48:00 * Test Item Value Reference Range Interpretation Comments Eosinophils (%) (Auto) (test code = 713-8) 3.3 0.0-6.0 [facility] HospitalBasophils (%) (Auto)2019-03-18 04:48:00* Test Item Value Reference Range Interpretation Comments Basophils (%) (Auto) (test code = 706-2) 0.7 0.0-1.0 [facility] HospitalIM GRANULOCYTES %2019-03-18 04:48:00* Test Item Value Reference Range Interpretation Comments IM GRANULOCYTES % (test code = IM GRANULOCYTES %) 0.3 0.0- 1.0 [facility] HospitalNeutrophils # (Auto)2019-03-18 04:48:00* Test Item Value Reference Range Interpretation Comments Neutrophils # (Auto) (test code = 751-8) 2.7 2.1-6.9 [facility] HospitalLymphocytes # (Auto)2019-03-18 04:48:00* Test Item Value Reference Range Interpretation Comments Lymphocytes # (Auto) (test code = 41320-1) 2.3 1.0-3.2 [facility] HospitalMonocytes # (Auto)2019-03-18 04:48:00* Test Item Value Reference Range Interpretation Comments Monocytes # (Auto) (test code = 742-7) 0.6 0.2-0.8 [facility] HospitalEosinophils # (Auto)2019-03-18 04:48:00* Test Item Value Reference Range Interpretation Comments Eosinophils # (Auto) (test code = 711-2) 0.2 0.0-0.4 [facility] HospitalBasophils # (Auto)2019-03-18 04:48:00* Test Item Value Reference Range Interpretation Comments Basophils # (Auto) (test code = 704-7) 0.0 0.0-0.1 [facility] HospitalAbsolute Immature Granulocyte (auto 2019-03-18 04:48:00* Test Item Value Reference Range Interpretation Comments Absolute Immature Granulocyte (auto (naty t code = Absolute Immature Granulocyte (auto) 0.02 0-0.1 [facility] HospitalB-Type Natriuretic Liplmuy3672-03-91 04:34:00* Test Item Value Reference Range Interpretation Comments B-Type Natriuretic Peptide (test code = 13662-9) < 10.0 0-100 [facility] HospitalCreatine Kinase IT2316-10-79 04:21:00* Test Item Value Reference Range Interpretation Comments Creatine Kinase MB (test code = 48848-2) 0.30 0-5.0 [facility] HospitalTroponin Y7270-90-50 04:21:00* Test Item Value Reference Range Interpretation Comments Troponin I (test code = BKC7052) < 0.001 0-0.300 [facility] Hospitalodium Hlwno8141-43-12 04:13:00* Test Item Value Reference Range Interpretation Comments Sodium Level (test code = 2951-2) 137 136-145 [facility] HospitalPotassium Unkrq3154-32-41 04:13:00* Test Item Value Reference Range Interpretation Comments Potassium Level (test code = 2823-3) 3.6 3.5-5.1 [facility] HospitalChloride Vgvkt3244-51-04 04:13:00* Test Item Value Reference Range Interpretation Comments Chloride Level (test code = 2075-0) 100 98-107 [facility] HospitalCarbon Dioxide Pqntd4643-12-57 04:13:00* Test Item Value Reference Range Interpretation Comments Carbon Dioxide Level (test code = 2028-9) 27 22-29 [facility] HospitalAnion Roo5523-42-72 04:13:00* Test Item Value Reference Range Interpretation Comments Anion Gap (test code = 86115-6) 13.6 8-16 [facility] HospitalBlood Urea Uxuxowkt8445-29-30 04:13:00* Test Item Value Reference Range Interpretation Comments Blood Urea Nitrogen (test code = 3094-0) 10 7-26 [facility] HospitalCreatinine2019-09-04 04:13:00* Test Item Value Reference Range Interpretation Comments Creatinine (test code = 2160-0) 0.81 0.72-1.25 [facility] HospitalBUN/Creatinine Phpzp1117-88-00 04:13:00* Test Item Value Reference Range Interpretation Comments BUN/Creatinine Ratio (test code = 3097-3) 12 6-25 [facility] HospitalEstimat Glomerular Filtration Rate 2019-02-25 04:13:00* Test Item Value Reference Range Interpretation Comments Estimat Glomerular Filtration Rate (test code = 185291011) > 60 >60 Ranges were taken from the National Kidney Disease Education Program and the [facility] Kid[facility] Foundation literature.Reference ranges:60 or greater: Zfjssl42-94 ( for 3 consecutive months): Chronic kidney disease 15 or less: Kidney failureMemorial Hermann Greater Heights HospitalGlucose Jrbrm1597-12-91 04:13:00* Test Item Value Reference Range Interpretation Comments Glucose Level (test code = ZAO8800) 142 74-118 H [facility] HospitalCalcium Qvtiy8161-43-50 04:13:00* Test Item Value Reference Range Interpretation Comments Calcium Level (test code = 79708-0) 10.3 8.4-10.2 H [facility] HospitalTotal Jnfmjrgej6636-73-34 04:13:00* Test Item Value Reference Range Interpretation Comments Total Bilirubin (test code = 1975-2) 0.9 0.2-1.2 [facility] HospitalAspartate Amino Transf (AST/SGOT) 2019-02-25 04:13:00* Test Item Value Reference Range Interpretation Comments Aspartate Amino Transf (AST/SGOT) (test code = Aspartate Amino Transf (AST/SGOT)) 19 5-34 [facility] HospitalAlanine Aminotransferase (ALT/SGPT) 2019-02-25 04:13:00* Test Item Value Reference Range Interpretation Comments Alanine Aminotransferase (ALT/SGPT) (test code = 1742-6) 24 0-55 [facility] HospitalTotal Mycmayr5160-27-24 04:13:00* Test Item Value Reference Range Interpretation Comments Total Protein (test code = 2885-2) 6.9 6.5-8.1 [facility] HospitalAlbumin2019-09-04 04:13:00* Test Item Value Reference Range Interpretation Comments Albumin (test code = 1751-7) 3.8 3.5-5.0 [facility] HospitalGlobulin2019-09-04 04:13:00* Test Item Value Reference Range Interpretation Comments Globulin (test code = 28988-9) 3.1 2.3-3.5 [facility] HospitalAlbumin/Globulin Sbqif0291-31-08 04:13:00 * Test Item Value Reference Range Interpretation Comments Albumin/Globulin Ratio (test code = 1759-0) 1.2 0.8-2.0 [facility] HospitalAlkaline Ktvyhhchdom0817-31-30 04:13:00* Test Item Value Reference Range Interpretation Comments Alkaline Phosphatase (test code = 6768-6) 89 40-150 [facility] HospitalCreatine Dsdunq3193-30-55 04:13:00* Test Item Value Reference Range Interpretation Comments Creatine Kinase (test code = 2157-6) 91 30-200 [facility] HospitalD-Dimer Quantitative (PE/DVT)2019-02-25 04:05:00* Test Item Value Reference Range Interpretation Comments D-Dimer Quantitative (PE/DVT) (test code = 42353-3) 0.44 0. 00-0.45 [facility] HospitalCHEST SINGLE (PORTABLE)2019-02-25 03:53:[address] [address] Patient Name: HARMAN MUNIZ MR #: [id number] : 1950 Age/Sex: 68/M Req #: [id number] Adm Physician: Ordered by: JARRETT WATT MD Report #: [id number] Location: ER Room/Bed: Procedure: DX/CHEST SINGLE (PORTABLE) Exam Date: 02/25/19 Exam Time: 0325 REPORT STATUS: S igned EXAMINATION: CHEST SINGLE (PORTABLE) COMPARISON: None IN DICATION: SOB [id number] Y DISCUSSION: Frontal view of the [...] COPY TO: JARRETT WATT MD White Blood Erarv1697-73-60 03:50:00* Test Item Value Reference Range Interpretation Comments White Blood Count (test code = 6690-2) 4.80 4.8-10.8 [facility] HospitalRed Blood Zpott2898-75-06 03:50:00* Test Item Value Reference Range Interpretation Comments Red Blood Count (test code = 789-8) 4.69 4.3-5.7 [facility] HospitalHemoglobin2019-09-04 03:50:00* Test Item Value Reference Range Interpretation Comments Hemoglobin (test code = 80382-4) 14.7 14.0-18.0 [facility] HospitalHematocrit2019-09-04 03:50:00* Test Item Value Reference Range Interpretation Comments Hematocrit (test code = 4544-3) 41.9 38.2-49.6 [facility] HospitalMean Corpuscular Owbigb7384-94-58 03:50:00* Test Item Value Reference Range Interpretation Comments Mean Corpuscular Volume (test code = 787-2) 89.3 81-99 [facility] HospitalMean Corpuscular Zhoswrsatx4283-85-92 03:50:00* Test Item Value Reference Range Interpretation Comments Mean Corpuscular Hemoglobin (test code = 785-6) 31.3 28-32 [facility] Corpuscular Hemoglobin Concent 2019-02-25 03:50:00* Test Item Value Reference Range Interpretation Comments Mean Corpuscular Hemoglobin Concent (test code = 786-4) 35.1 31-35 H [facility] HospitalRed Cell Distribution Uevse1770-62-98 03:50:00* Test Item Value Reference Range Interpretation Comments Red Cell Distribution Width (test code = 26403-0) 12.0 11.7 -14.4 [facility] HospitalPlatelet Dabrb9122-96-40 03:50:00* Test Item Value Reference Range Interpretation Comments Platelet Count (test code = 777-3) 190 140-360 [facility] HospitalNeutrophils (%) (Auto)2019-02-25 03:50:00 * Test Item Value Reference Range Interpretation Comments Neutrophils (%) (Auto) (test code = 30265-9) 50.5 38.7-80.0 [facility] HospitalLymphocytes (%) (Auto)2019-02-25 03:50:00 * Test Item Value Reference Range Interpretation Comments Lymphocytes (%) (Auto) (test code = 736-9) 35.4 18.0-39.1 [facility] HospitalMonocytes (%) (Auto)2019-02-25 03:50:00* Test Item Value Reference Range Interpretation Comments Monocytes (%) (Auto) (test code = 5905-5) 9.4 4.4-11.3 [facility] HospitalEosinophils (%) (Auto)2019-02-25 03:50:00 * Test Item Value Reference Range Interpretation Comments Eosinophils (%) (Auto) (test code = 713-8) 3.5 0.0-6.0 [facility] HospitalBasophils (%) (Auto)2019-02-25 03:50:00* Test Item Value Reference Range Interpretation Comments Basophils (%) (Auto) (test code = 706-2) 0.6 0.0-1.0 [facility] HospitalIM GRANULOCYTES %2019-02-25 03:50:00* Test Item Value Reference Range Interpretation Comments IM GRANULOCYTES % (test code = IM GRANULOCYTES %) 0.6 0.0- 1.0 [facility] HospitalNeutrophils # (Auto)2019-02-25 03:50:00* Test Item Value Reference Range Interpretation Comments Neutrophils # (Auto) (test code = 751-8) 2.4 2.1-6.9 [facility] HospitalLymphocytes # (Auto)2019-02-25 03:50:00* Test Item Value Reference Range Interpretation Comments Lymphocytes # (Auto) (test code = 14085-5) 1.7 1.0-3.2 [facility] HospitalMonocytes # (Auto)2019-02-25 03:50:00* Test Item Value Reference Range Interpretation Comments Monocytes # (Auto) (test code = 742-7) 0.5 0.2-0.8 [facility] HospitalEosinophils # (Auto)2019-02-25 03:50:00* Test Item Value Reference Range Interpretation Comments Eosinophils # (Auto) (test code = 711-2) 0.2 0.0-0.4 [facility] HospitalBasophils # (Auto)2019-02-25 03:50:00* Test Item Value Reference Range Interpretation Comments Basophils # (Auto) (test code = 704-7) 0.0 0.0-0.1 [facility] HospitalAbsolute Immature Granulocyte (auto 2019-02-25 03:50:00* Test Item Value Reference Range Interpretation Comments Absolute Immature Granulocyte (auto (naty t code = Absolute Immature Granulocyte (auto) 0.03 0-0.1 [facility]- XR SPINE 1 V SPEC WFQYN5114-87-80 09:53:00Patient Name: HARMAN MAIN Unit No: [id number] EXAMS: CPT CODE: [id number] XR SPINE 1 V SPEC LEVEL [id number] Examination: Single lateral intraoperative view of the [...] M.D. CC: Tank Ramsey MD Technologist: Martin Aquino Fluoro Time: DAP (Gy m2): Air Kerma (mGy): Trscr Dt/Tm: 02/07/2019 (0953) by:[email or web address] Printed Date/Time: 02/07/2019 (3642) Name: JOSE DAVIDHARMAN [facility] Phys: Tank Reyes MD [address] : 1950 Age: 68 Sex: [place] [address] Loc: P.0575 1 Exam Date: 02/05/2019 Status: ADM IN PH: FAX: PAGE 1 Signed Report SURGICAL TEZBVQUEJ3661-17-88 16:56:00 RUN DATE: 02/06/19 [facility] *LIVE* PAGE 1 RUN TIME: 6 Specimen Inqui ry RUN USER: INTERFACE PATIENT: HARMAN MAIN ACCT #: [id number] LOC: P.5N POD B U #: [id number] AGE/SX: 68/M ROOM: [facility] RE02/05/19REG DR: Tank Ramsey MD : [birth year] BED: 1 DIS: STATUS: ADM Richard TLOC: SPEC #: [id number] RECD: 02/05/19 STATUS: PETE SINGH #: [id number] ROMINA: 02/05/[address] [facility] [facility] [address]: Tank Ramsey MD ENTERED: 02/05/19 SP [...] in aggregate. No discrete lesions are seen. Temp Recruiter sections are submitted in a single cassette. 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 Signed SIGNATURE ON FILE VelezPerez,Carol 02/06/19 1656 END OF REPORT PROTHROMBIN [id number] 11:14:00* Test Item Value Reference Range Interpretation [...] heart valves; 2.5-3.5recurrent systemic embolism. THROMBOPLASTIN TIME RYDCONR1785-33-36 11:14:00* Test Item Value Reference Range Interpretation Comments THROMBOPLASTIN TIME PARTIAL (test code = PTT) 33.0 SECONDS 26.0-35. 9 N INTERPRETATIVE DATA:Therapeutic range: Unfractionated heparin:47 - 71 seconds Argatroban:1.5 to 3 times the baseline PTT COMPREHENSIVE METABOLIC [id number] 10:54:00* Test Item Value Reference Range Interpretation [...] CHD)40-59mg/dL: Borderline Risk LDL Cholesterol<100mg/dL: Desirable LDL-C yzyruvwaqmmzk510-990hv/dL: Borderline High Risk LDL-C ukwhpsmglvfma988-194nv/dL: High risk LDL-C concentration HDL-LDL Cholesterol is affected by a number of factors suchas smoking, age and sex.~~~~~~~~~~~~~~~~~~~~~~~~~~~~~~~~~~~~~~~~~~~~~~~~~~~~~~~~~~~~ URINALYSIS PTMMERUL2088-99-68 10:49:00* Test Item Value Reference Range Interpretation [...] = LEUU) NEGATIVE NEGA TIVE CBC W/AUTO LJKV7628-06-38 10:48:00* Test Item Value Reference Range Interpretation [...] x10 3/uL 0.0-0.20 N MRI SPINE LUMBAR [id number] 08:32:00 [address] [place] [address] Patient Name: HARMAN MUNIZ MR #: [id number] : 1950 Age/Sex: 67/M Req #: [id number] [facility] Physician: Ordered by: MIHAELA BALLARD MD Report #: [id number] Location: MRI Room/Bed: Procedure: [id number] MRI/MRI SPINE LUMBAR WO Exam Date: 08/19/18 [...]
--- NOTE | 2020-02-25 07:24 | NUR ---
called henry for tele box for room 204.
--- NOTE | 2020-02-25 08:10 | NUR ---
pt was confused regarding admission. rn primary and charge to room with management advisor computer. management advisor #[id number] used. Pt's son also came to window for update and was taken to pt's room for full explaination with computer management advisor, er md Dr. Echols, and LUIS ARMANDO Reza primary nurse to alievate any confusion. Pt states understanding of admission and agrees to be admitted to hospital at this time for dyspnea and headache. Pt is aaox4. Pt is slightly hard of hearing.
[2020-02-25] MEDS ORDERED: HYDRALAZINE HCL 20 MG/ML VIAL IV PRN (11:15)
--- NOTE | 2020-02-25 11:50 | NUR ---
Chart reviewed, events noted, discussed with ED physician, Dr Hutchison. Requested cardiology and pulmonary evaluation.
[2020-02-25 12:00] VITALS: BP 137/66
--- NOTE | 2020-02-25 13:00 | NUR ---
shreya Bradford telemetry for MRI
[2020-02-25] MEDS ORDERED: MORPHINE SULFATE 2 MG/ML SYR 1ML IV STA (13:32)
[2020-02-25] MEDS: MAGNESIUM/ALUMINUM/SIMETHICONE 30 ML UDC PO PRN ×2 (13:46→18:54)
[2020-02-25] MEDS: ACETAMINOPHEN 325 MG TAB PO PRN (14:05)
[2020-02-25 14:23] LABS: CREATINE KINASE 40 IU/L (30-200)
[2020-02-25 16:00] VITALS: BP 146/73
--- NOTE | 2020-02-25 16:15 | Consultation ---
DATE OF CONSULTATION: 02/25/2020 Pulmonary Medicine Consult REASON FOR REFERRAL: Shortness of breath. HISTORY OF PRESENT ILLNESS: A 69-year-old gentleman with chest tightness. The patient is a limited historian as he had some kind of brain injury in the past. The patient states he has new onset chest pain. Onset three days ago. He claims he has never seen a heart doctor for this pain before. It was happening three days ago and recurred today. Due to this issue, he got very worried. He came to emergency room. Actually was sent home three days ago from the ER for similar issue. This time he was admitted. EKG shows right bundle branch block, sinus rhythm. At this point, he is admitted. There is rare GERD, but on previous CT chest, which showed only a moderate hiatal hernia. No asthma. No allergies. D-dimer was also negative and COVID-19 assay was negative. PAST MEDICAL HISTORY: Hypertension, traumatic brain injury, rare GERD, hiatal hernia on CT scan. MEDICATIONS: He is on one blood pressure pill at home. ALLERGIES: NO KNOWN DRUG ALLERGIES. SOCIAL HISTORY: No smoking. No drinking. No drugs. FAMILY HISTORY: Noncontributory to this issue. REVIEW OF SYSTEMS: GENERAL: No weight loss. OPHTHALMOLOGIC: No floaters. ENT: No mouth ulcers. ENDOCRINE: No known thyroid disease. PULMONARY: No hemoptysis. CARDIAC: No known stress test in the past. ABDOMEN: No diarrhea. : No blood in urine. NEUROLOGIC: No seizures. DERMATOLOGIC: No rash. OBJECTIVE: VITAL SIGNS: Afebrile, vital signs stable, noted per the chart record. GENERAL: In no acute distress, alert and calm. HEENT: Normocephalic, atraumatic. NECK: Supple. Throat midline. LUNGS: Bilateral air entry, clear. CARDIOVASCULAR: S1, S2. No murmurs, rubs, or gallops. ABDOMEN: Soft, nontender. EXTREMITIES: No clubbing. No cyanosis. There is no edema. INTEGUMENT: No rash. No purpura. LABORATORY DATA: 1.05 creatinine. 5 white count, 44 hematocrit, 183 platelets. IMPRESSION AND PLAN: 1. Chest pain, not otherwise specified. Treated acute coronary syndrome. 2. Abnormal EKG, right bundle branch block with negative D-dimer. 3. Hypertension. 4. Rare gastroesophageal reflux disease, but moderate hiatal hernia per previous CT scan. 5. History of some traumatic brain injury. 6. Memory impairment, not otherwise specified. Unclear history. Get Cardiology consult. He will need echocardiogram with consideration for cardiac workup. Less likely PE, but we will assess echocardiogram findings. The patient should have continue cardiac enzymes. Risk stratification for coronary syndrome. Because it is hard to get a good history of his neurologic issue, I will get Neurology consult to ensure stabilization here. We will follow up closely. Dr. Jim Haji to follow tomorrow for pulmonary issues. Thank you very much, Dr. Cordon and Dr. Liao. Please call for questions. MD JEWELS Babin/STEFAN /[id number]
[2020-02-25] MEDS: FAMOTIDINE 20 MG TAB PO SCH (16:18)
[2020-02-25 20:00] VITALS: BP 127/87
--- NOTE | 2020-02-25 22:21 | Consultation ---
DATE OF CONSULTATION: 02/25/2020 Cardiology Consultation Note REASON FOR REFERRAL: Chest pain. History from patient and available medical records. Patient is a very poor historian. HISTORY OF PRESENT ILLNESS: A 69-year-old man with history of traumatic brain injury and hypertension is admitted due to chest pain. The patient came to ER because of episodes of chest pain in the last 3 days. He was without chest pain when I spoke with him. Electrocardiogram showed sinus rhythm with a right bundle branch block, there is no previous electrocardiogram available for comparison. MEDICAL HISTORY: 1. Hypertension. 2. Traumatic brain injury. 3. GERD. 4. Hiatal hernia. MEDICATIONS: The patient takes blood pressure medication at home. He does not know the name of it. ALLERGIES: HE HAS NO ALLERGIES TO ANY MEDICATIONS. SOCIAL HISTORY: Denies tobacco, alcohol or other drug use. REVIEW OF SYSTEMS: Negative 12-point review of system except as noted above. PHYSICAL EXAMINATION: VITAL SIGNS: His blood pressure is 146/73 mmHg with a heart rate of 61, temperature is 97.8, and the oxygen saturation is 99% at room air. GENERAL: No acute distress. He is awake, alert, and follows commands. HEAD AND NECK: Normocephalic, atraumatic. Anicteric conjunctiva. The trachea is midline. LUNGS: Clear to auscultation both lung jameson. CARDIAC: Normal S1, S2. No murmurs or gallops. ABDOMEN: Soft, nontender. EXTREMITIES: No edema or cyanosis. SKIN: Intact. LABORATORY DATA: Shows white blood cell count of 5.6K, hemoglobin 15, hematocrit 44, platelet count 183,000. Metabolic profile shows a sodium of 137, potassium of 4, chloride of 104, bicarb of 22, BUN of 10, creatinine of 1.05, glucose of 281. The liver tests are within reference range. Troponin level is not elevated. Albumin is 4.1. D-dimer is less than 100; coronavirus by PCR was not detected. ASSESSMENT AND PLAN: 1. Chest pain, unknown etiology: Rule-out TN with serial troponin levels Telemetry bed Control blood pressure with BB and ACEI or ARB Aspirin 81 mg daily Echocardiogram ordered. Coronary evaluation pending results of echocardiogram. AM labs: lipid profile and hemoglobin A1c. 2. Hypertension: Home medications are not known. Control BP with BB and ACEI or ARB. 4. Elevated glucose: Hemoglobin A1c in the AM. Romina MD DEB Kaur/STEFAN /[id number]
[2020-02-25 23:29] LABS: CREATINE KINASE MB 0.4 ng/mL (0-5.0)
--- NOTE | 2020-02-25 23:42 | NUR ---
History of present illness: 69-year-old gentleman presented to the emergency department complaining of new onset of chest pain which is been going on during the last 3 days or so. In addition to this has been complaining of shortness of breath. Consequently he presented to the emergency room department. He was seen in the emergency room department 3 days prior to his visit for similar problems. EKG demonstrated right bundle branch block and sinus rhythm. The patient denies abdominal pain, nausea, no vomiting, no diarrhea. Lab data: CBC disclosed WBC 5.65, hemoglobin 15.1, platelet count 183,000. Chemistry profile revealed sodium 137, potassium 4.0, chloride 104, CO2 22, BUN 10, creatinine 1.05, blood sugar 281. D-dimer was negative. COVID-19 test was [address] as [address] CT of chest demonstrated only moderate hiatal hernia. Past medical history: Significant for traumatic brain injury. History of hypertension, GERD, hiatal hernia. No history of sleep coronary disease. No thromboembolism Family history: Noncontributory. Social history: No tobacco drug abuse. Review of system: Constitutional: No Fever, No chills, No General weakness HEENT: No headaches. Cardiovascular: Complaining of chest pain, palpitations, PND, swelling of the legs. Respiratory: No Cough, hemoptysis. Patient presented with shortness of breath GI: Denies Nausea/V/D, hematemesis, melena. : Denies Hematuria, Dysuria, Frequency Musculoskeletal: Denies joint pain Neuro: No focal weakness Psych: No anxiety or depression. Skin: No rashes, Itching, Hives HEENT: No gross abnormalities Neck: Supple no JVD Lungs: Clear to auscultation Heart: Regular rate and rhythm, no murmurs no gallops Abdomen: Soft non tender, no guarding. Extremities: No edema Neurologic: Alert oriented 3, no focal weakness. Psychiatrist: Normal mood, normal judgment. Skin: No rashes Assessment: -Chest pain etiology is a. Rule out cubital syndrome.\- -Dyspnea. Pulmonary has been consulted. Negative d-dimer. PE has not been strongly suspected. -Abnormal EKG. Consistent with right bundle branch block -Hiatal hernia -GERD -Hyperglycemia -Hypertension -History of traumatic brain injury Plan of care: Cardiac consultation requested. Also, pulmonary consultation. Recommendations noted. Hemoglobin A1c
[2020-02-26] VITALS (9 sets, daily range): BP systolic 127–156; BP diastolic 73–88
[2020-02-26 06:23] LABS: BASOPHILS % 0.4 % (0.0-1.0); EOSINOPHILS # (AUTO) 0.2 (0.0-0.4); EOSINOPHILS % 3.6 % (0.0-6.0); HEMATOCRIT 43.2 % (38.2-49.6); HEMOGLOBIN 14.8 g/dL (14.0-18.0); LYMPHOCYTES # (AUTO) 1.7 (1.0-3.2); LYMPHOCYTES % 36.3 % (18.0-39.1); MEAN CORPUSCULAR HEMOGLOBIN 31.2 pg (28-32); MEAN CORPUSCULAR HGB CONC 34.3 g/dL (31-35); MEAN CORPUSCULAR VOLUME 91.1 fL (81-99); MONOCYTES # (AUTO) 0.4 (0.2-0.8); MONOCYTES % 8.6 % (4.4-11.3); NEUTROPHILS # (AUTO) 2.4 (2.1-6.9); NEUTROPHILS % 50.9 % (38.7-80.0); PLATELET COUNT 149 x10e3/uL (140-360); RED BLOOD COUNT 4.74 x10e6/uL (4.3-5.7); RED CELL DISTRIBUTION WIDTH 12.2 % (11.7-14.4)
[2020-02-26 06:53] LABS: ALANINE AMINOTRANSFERASE 24 IU/L (0-55); ALBUMIN 3.8 g/dL (3.5-5.0); ALBUMIN/GLOBULIN RATIO 1.7 (0.8-2.0); ALKALINE PHOSPHATASE 74 IU/L (40-150); ANION GAP 14.7 mmol/L (8-16); BLOOD UREA NITROGEN 12 mg/dL (7-26); BUN/CREATININE RATIO 15 (6-25); CALCIUM 8.4 mg/dL (8.4-10.2); CARBON DIOXIDE 22 mmol/L (22-29); CHLORIDE 106 mmol/L (98-107); CREATININE, SERUM 0.82 mg/dL (0.72-1.25); EST GLOMERULAR FILTRATION RATE > 60 ML/MIN (60-); GLUCOSE 131 mg/dL (74-118); POTASSIUM 3.7 mmol/L (3.5-5.1); SODIUM 139 mmol/L (136-145)
[2020-02-26 06:54] LABS: CHOL/HDL RATIO 5.6 (3.9-4.7)
[2020-02-26] MEDS: FAMOTIDINE 20 MG TAB PO SCH ×2 (10:03→16:30)
[2020-02-26] MEDS: ASPIRIN 81 MG CHEW TAB PO SCH (10:03)
--- NOTE | 2020-02-26 11:48 | Consultation ---
DATE OF CONSULTATION: 02/25/2020 REASON FOR CONSULTATION: Memory issues and memory lapses. HISTORY OF PRESENT ILLNESS: A 69-year-old male has history of traumatic brain injury, admitted with cardiac and pulmonary issues. Reason for neurology consultation is that he forgot the reason why he was admitted recently to the hospital and he has history of memory lapses. No other neurologic deficits. The patient is Estonian-speaking and so was difficult to interview him. He was complaining about chest pain at this time and apparently Cardiology just saw him and ruled out any cardiac issues. He is being worked up for GI issues also for his pain. No lateralized neurologic symptoms. PAST MEDICAL HISTORY: As above hypertension, traumatic brain injury. GERD, and hiatal hernia. MEDICATIONS: Blood pressure medications. ALLERGIES: UNKNOWN. SOCIAL HISTORY: No drug abuse. REVIEW OF SYSTEMS: A complete review of system is negative otherwise. PHYSICAL EXAMINATION: VITAL SIGNS: Blood pressure 147/72, heart rate is 65, temperature 97.9, O2 saturation 99. HEAD AND NECK: No meningeal signs. LUNGS: Good air entry. ABDOMEN: Soft except in the upper area, which is tender. LUNGS: Good air entry. NEUROLOGIC: Alert, follows commands. He is fluent in Estonian. I could not assess his cognitive functioning because he is Estonian speaking. Extraocular muscles are intact. No facial asymmetry. Uvula midline. Pupils reactive bilaterally with light. Tongue midline. No lateralized weakness. Sensory decreased pinprick at the bilateral feet. Deep tendon reflexes are 1. Plantars are flexor. Gait is normal. ASSESSMENT: The patient with intermittent memory lapses and history of traumatic brain injury most likely representing some form of focal type of seizures with . We will have to check an EEG as well as an MRI of the brain for the sake of completion of his workup if he is cooperative. I suggest no antiepileptic medications unless his EEG is abnormal. The patient was counseled about the danger of driving while he might have those symptoms. I could not assess his cognitive functioning and if he has an underlying dementia as well. I will check folate, TSH, ammonia level as well as vitamin B12, magnesium, and electrolytes. He might benefit from having a neuropsychological evaluation. Jose Arellano MD AM/STEFAN /[id number]
--- NOTE | 2020-02-26 13:38 | NUR ---
Dr Novak office called.( pt SOB and anxious) no carmen back no new orders
[2020-02-26] MEDS: MAGNESIUM/ALUMINUM/SIMETHICONE 30 ML UDC PO PRN ×2 (13:49→16:30)
--- NOTE | 2020-02-26 16:24 | Progress Note ---
DATE: SUBJECTIVE: The patient still has some dyspnea. It is worse after eating. He has no chest pain. He has minimal cough. PHYSICAL EXAMINATION: VITAL SIGNS: The blood pressure is 153/77 and saturation is 100%. Pulse is 73. HEENT: Shows no facial swelling or erythema. LYMPHATIC: Shows no submandibular, cervical, or supraclavicular adenopathy. CARDIAC: Reveals regular rate and rhythm with normal S1 and S2. LUNGS: Auscultation of lungs reveals clear breath sounds bilaterally. There is no wheezing. ABDOMEN: Soft and nontender. There is no rebound or guarding. EXTREMITIES: Shows no leg edema or calf tenderness. There is no cyanosis or clubbing. SKIN: Shows no rashes. NEUROLOGICAL: Shows the patient to respond, but is not very talkative. LABORATORY DATA: White blood cell count is 4.76, hemoglobin is 14.8, and platelet count is 149. BUN to creatinine ratio is normal. Other electrolytes are within normal limits. RADIOGRAPHIC DATA: Chest x-ray shows no active disease. IMPRESSION: 1. Shortness of breath after eating, which may represent gastroesophageal reflux. 2. Neurological impairment and history of some traumatic brain injury. 3. Hypertension. PLAN: 1. Continue current anti-reflux regimen. 2. Await completion of Neurology evaluation. Jim Haji MD [facility]/LIZZL /[id number]
[2020-02-26] MEDS: ACETAMINOPHEN 325 MG TAB PO PRN (16:30)
[2020-02-26] MEDS: METOPROLOL SUCCINATE 25 MG TAB XL PO SCH (18:03)
[2020-02-26] MEDS: PANTOPRAZOLE SOD 40 MG TABEC PO SCH (18:27)
--- NOTE | 2020-02-26 20:30 | NUR ---
Received report from Cindy (RN) about patient's information. Patient is tuvaluan speaking only and alert and oriented x3. Ambulatory in room prn. Patient resting in bed and breath on room air. Pt appear comfortable at this time. Will monitor pt closely. Call peres within reach.
--- NOTE | 2020-02-26 20:49 | Progress Note ---
DATE: 02/26/2020 Cardiology Progress Note SUBJECTIVE: Mr. Leonardo denies any chest pain. He continues to have intermittent spells of dyspnea following intake of pills following meals. He otherwise denies any shortness of breath at rest or with exertion. Symptoms are related to activity. They seem to be related to meal intake. They also seem to worsen with lying down position. He has no other complaints at this time. PHYSICAL EXAMINATION: VITAL SIGNS: Temperature 98.5, heart rate 73, blood pressure 153/77, respiratory rate 18, O2 saturation 100%. GENERAL: In no acute distress, alert. NECK: No JVD. CHEST: Clear to auscultation. CARDIOVASCULAR: Regular rate and rhythm. Normal S1 and S2. ABDOMEN: Soft. Bowel sounds positive. EXTREMITIES: No edema. CARDIOVASCULAR MEDICATIONS: Reviewed. Aspirin 81 mg daily, hydralazine 10 mg q.4 hours p.r.n. STUDIES: Reviewed. Serial troponins negative x4. D-dimer within normal range. BMP within normal range. Sodium 139, potassium 3.7, chloride 106, bicarbonate 22, BUN 12, creatinine 0.8, glucose 131. White blood cells 4.7, hemoglobin 14.8, platelets 149. AST 17, ALT 24, alkaline phosphatase 74, total bilirubin is 0.5. ASSESSMENT AND PLAN: 1. A 69-year-old man presents with rigid shortness of breath, suspected reflux. 2. History of traumatic brain injury and hypertension. RECOMMENDATIONS: 1. 25 mg at bedtime extended release. 2. Trial of PPI. 3. Symptoms given relationship with meals and position seem more likely to be GI in nature, suspect reflux, possibly some hyperreactive airway resulting from this. Less likely coronary etiology. He is ruled out for AMI. Denies any chest discomfort. Stress test is advised and can be performed as an outpatient if the patient improves to symptomatic trial to PPI. We will continue to follow closely. So far no documented arrhythmias. Dominik Carter MD AFAlvaro/STEFAN /[id number]
--- NOTE | 2020-02-26 21:20 | NUR ---
Spoke with patient's daughter (Grace) and updated her with patient's status and current condition per their request. Also mentioned to daughter if she or any family member that has a copy of the patient's home medication will call tomorrow (02/27/20) so that we could update patient's home med list while in the hospital. Also questions were answered to the daughter's satisfaction. The plan to call tomorrow to speak with Dr. Cordon for more updates about the patient.
--- NOTE | 2020-02-26 22:00 | NUR ---
Called and spoke with Dr. Cordon and Dr. Russell and informed of patient having some hyperventilation and panic attack during ambulation tonight. Both MD agreed and Dr. Russell ordered Seroquel 25mg PO Q6hr prn for anxiety and can increase dose to 50mg if 25mg does not help.
[2020-02-26] MEDS ORDERED: QUETIAPINE FUMARATE 25 MG TAB PO PRN (22:15)
--- NOTE | 2020-02-26 22:50 | NUR ---
With help from daughter (Grace) over the phone to translate, patient given 1 tab (25mg) PO of Seroquel. Explained to patient and daughter plan of care and pt seems to understand. Patient aware to call when he uses urinal so that urine sample can be sent to lab for UA and UDS specimen.
[2020-02-27] VITALS: BP 141/71
--- NOTE | 2020-02-27 | NUR ---
Patient visited in room and pt appear comfortable and sleeping soundly. No sign of agitation or shortness of breath at this time.
--- NOTE | 2020-02-27 00:04 | Electroencephalogram ---
DATE OF STUDY: 02/25/2020 REQUESTING PHYSICIAN: TECHNIQUE: An 18 channels of 20-minute EEG recording utilizing international 10/20 system done today. EEG data was digitally acquired and analyzed. BACKGROUND ACTIVITY: Background rhythm consists of poorly regulated 9 hertz rhythmic waveforms, ACTIVATION: Unremarkable. Sleep, awake, and drowsy. Stage 1 of sleep noted. IMPRESSION: Normal EEG. No focal, lateralized, or epileptiform features are noted. Jose Arellano MD AM/MODDewayne /[id number]
--- NOTE | 2020-02-27 01:16 | Progress Note ---
DATE: 02/26/2020 Neurology Progress Note SUBJECTIVE: The patient is still having spells after he eats where he starts having chest pain and abdominal pain. Cardiology ruled out any cardiac etiology. GI evaluation is underway. No real neurological symptoms. Forgetfulness that he has chronic since his brain injury. His EEG does not show any evidence for epilepsy and he refused to have an MRI of his brain. MEDICATIONS: Per list. PHYSICAL EXAMINATION: NEUROLOGIC: Limited because he is Gibraltarian speaking, but there is no weakness. No lateralization of abnormal eye movements. No facial asymmetry. Pupils are reactive to light bilaterally equally. Deep tendon reflexes are 1. Plantars are flexor. ASSESSMENT: At this time, the patient has history of traumatic brain injury with memory issues, probably related to that. It is difficult to assess his cognitive function because he is only Gibraltarian-speaking. We will need Neuropsych evaluation as an outpatient since his EEG does not show any evidence of epileptic process. We will not start him on any antiepileptic medications. The patient does not want any further or neuro workup and if probably it is not necessary at this point, considering that his exam is unremarkable otherwise. Other services including GI following the patient. Jose Arellano MD AM/STEFAN /[id number]
[2020-02-27 04:00] VITALS: BP 139/73
[2020-02-27 04:58] LABS: AMPHETAMINES SCREEN,URINE NEGATIVE (NEGATIVE); BENZODIAZEPINES SCREEN,URINE NEGATIVE (NEGATIVE); BILIRUBIN,URINE NEGATIVE (NEGATIVE); CLARITY,URINE CLEAR (CLEAR); COLOR,URINE YELLOW (YELLOW); KETONES,URINE NEGATIVE (NEGATIVE); LEUKOCYTE ESTERASE ,URINE NEGATIVE (NEGATIVE); NITRITE,URINE NEGATIVE (NEGATIVE); PHENCYCLIDINE SCREEN,URINE NEGATIVE (NEGATIVE); PROTEIN,URINE DIPSTICK NEGATIVE (NEGATIVE); URINE UROBILINOGEN 0.2 mg/dL (0.2 - 1)
[2020-02-27 05:34] LABS: RBC,URINE 0-5 /HPF (0-5); WBC,URINE (MAN) 0-5 /HPF (0-5)
[2020-02-27 05:35] LABS: BACTERIA,URINE RARE /HPF; EPITHELIAL CELLS,URINE FEW /LPF
[2020-02-27 07:58] VITALS: BP 160/80
[2020-02-27] MEDS: ASPIRIN 81 MG CHEW TAB PO SCH ×2 (09:08→09:09)
[2020-02-27] MEDS: FAMOTIDINE 20 MG TAB PO SCH ×3 (09:08→09:10)
[2020-02-27] MEDS: PANTOPRAZOLE SOD 40 MG TABEC PO SCH ×2 (09:08→09:09)
[2020-02-27] MEDS: METOPROLOL SUCCINATE 25 MG TAB XL PO SCH ×2 (09:09→09:10)
--- NOTE | 2020-02-27 10:00 | NUR ---
Pt is 2 day OBS. CM called answering service and paged Dr. Cordon for DC plan.
[2020-02-27 10:05] VITALS: BP 160/80
[2020-02-27 10:16] VITALS: BP 160/80
--- NOTE | 2020-02-27 11:33 | NUR ---
Spoke to Dr. Cordon. States Dr. Russell is covering for him. Spoke to Dr. Russell, informed of 2 day obs. States he will be here shortly to discharge pt.
[2020-02-27 11:35] VITALS: BP 112/75
--- NOTE | 2020-02-27 11:41 | Progress Note ---
DATE: 02/27/2020 Cardiology Progress Note SUBJECTIVE: Denies any chest pain. Shortness of breath has improved. No complaints currently. OBJECTIVE: VITAL SIGNS: Temperature 97.9, heart rate 89, blood pressure 160/80, respiratory rate 20, and O2 saturation 100%. GENERAL: In no acute distress, alert. NECK: Supple. No JVD. CHEST: Clear to auscultation. CARDIOVASCULAR: Regular rate and rhythm. Normal S1, S2. ABDOMEN: Soft. Bowel sounds positive. EXTREMITIES: No edema, normothermic. CARDIOVASCULAR MEDICATIONS: Reviewed: 1. Aspirin 81 mg daily. 2. Metoprolol succinate 25 mg daily. 3. Protonix 40 mg at bedtime. 4. Status post magnesium, aluminum silicate q.6 hours, p.r.n. hydralazine. LABORATORY STUDIES: Reviewed. Sodium 139, potassium 3.7, chloride 106, bicarbonate 22, BUN 12, creatinine 0.8, and glucose 131. White blood cells 4.7, hemoglobin 14.8, and platelets 149. AST 17, ALT 24, alkaline phosphatase 74, and total bilirubin 0.5. ASSESSMENT AND PLAN: A 69-year-old man presents with hypertension, atypical chest pain, and shortness of breath, worsening with recumbent position and following meals, suspected gastroesophageal reflux disease/GI etiology. Recommend given symptomatic improvement, consider further treatment with PPI for short period of time. Outpatient stress test advised, preserved left ventricular systolic function on echo, has ruled out for AMI. Given elevated blood pressure rate, continue metoprolol upon discharge. MD VALERIA Vaz/STEFAN /[id number]
[2020-02-27] MEDS ORDERED: ASPIRIN CHEW81 MG PO (11:45)
[2020-02-27] MEDS ORDERED: FAMOTIDINE20 MG PO (11:45)
[2020-02-27] MEDS ORDERED: TOPROL XL25 MG PO (11:45)
[2020-02-27] MEDS ORDERED: RISPERDAL0.5 MG PO (12:47)
--- NOTE | 2020-02-27 13:42 | Progress Note ---
DATE: 02/27/2020 ADDENDUM: Mr. Wolfe was seen and examined at bedside. I also discussed with his daughter extensively given the patient's poor memory. I made copies of multiple CT scans and MRIs and x-rays that have been done in this hospital. We found that he had a 2nd medical record number, and I removed reports from that. I explained to her the EEG finding which was not diagnostic of epilepsy. I explained the liver mass versus liver irregularities that were recommended for previous MRI by previous ER doctor, which she knew about. I gave her a copy of that MRI as well. She will take these records to her father's PCP. I explained to her the emergency vehicle dispatcher recommendation, look for Gastroenterology issues as well as to rule out cardiac with outpatient stress test. The patient and family acknowledged understanding and long conversations I had with them. PLAN: Discharge today. The patient to follow up findings with appropriate doctors that I explained to her. Consideration for MRI of liver as outpatient. The patient is my clinic patient already and is undergoing a trial of inhalers which they were just going to start before he came hospitalized. The patient is needed for anxiety medications per daughter. Here in the hospital, the patient is sleeping well and has intermittent mild issues here. I will order low-dose Risperdal p.r.n. and this can be considered for every day dosing if it is found that it is helpful. MD JEWELS Babin/STEFAN /[id number]
== END 2020-02-27 13:13 | disposition home or self-care (01) ==
LOC: ER 03:40 → ERHOLD 05:31 → MED/SURG2 08:36
PROVIDERS: ADMIT Internal Medicine; ATTEND Internal Medicine
DX: R07.89 Other chest pain (principal); R94.31 Abnormal electrocardiogram [ECG] [EKG]; I44.7 Left bundle-branch block, unspecified; I10 Essential (primary) hypertension; K21.9 Gastro-esophageal reflux disease without esophagitis; K44.9 Diaphragmatic hernia without obstruction or gangrene; Z87.820 Personal history of traumatic brain injury; Z11.59 Encounter for screening for other viral diseases; R73.9 Hyperglycemia, unspecified
CPT/HCPCS: 36415 ×3; 70450; 71045; 80053 ×2; 80061; 80307; 81001; 82550; 82553; 82948 ×3; 83036; 83880; 84484 ×2; 85025 ×2; 85379; 93005; 93306; 95819; 99284; G0378 ×3; J2270; S0164 ×2; U0002

== ENCOUNTER 2020-03-27 23:23 | Emergency (ER) | payer MEDICARE, OTHER ==
[~2020-03-27] VITALS: Ht 172.7 cm; Wt 91.6 kg
[~2020-03-27 23:23] MED LIST: ASPIRIN CHEW81 MG PO; FAMOTIDINE20 MG PO; RISPERDAL0.5 MG PO; TOPROL XL25 MG PO
[2020-03-27] MEDS ORDERED: SODIUM CHLORIDE 0.9% 500ML 500 ML IV STA (23:27)
--- NOTE | 2020-03-27 23:36 | Emergency Department Note ---
History of Present Illnes History of Present Illness Chief Complaint: General Medicine Complaints History of Present Illness This is a 69 year old male returns to the ED for dyspnea of 6 weeks. Seen and evaluated by me on 02/21/2020 and 02/25/2020, patient admits to no following up as instructed but has been seen at [facility] and [facility]. Historian: Patient Arrival Mode: Car History limited by: language barrier Onset (how long ago): week(s) (6) Severity: moderate Onset quality: gradual Duration (how long): week(s) (6) Timing of current episode: constant Progression: waxing and waning Relieving factors: none Exacerbating factors: none Associated symptoms: Reports shortness of breath Previous service: medications given, tests performed, observation, one or more referrals, re-evaluation Past Medical/Family History Physician Review I have reviewed the patient's past medical and family history. Any updates have been documented here. Past Medical History Recent Fever: No Clinical Suspicion of Infectio: No New/Unexplained Change in Ment: No Past Medical History: None Past Surgical History: None Social History Smoking Cessation: Never Smoker Alcohol Use: None Any Illegal Drug Use: No Review of Systems Review of Systems Constitutional: Reports no symptoms EENTM: Reports no symptoms Cardiovascular: Reports no symptoms Respiratory: Reports dyspnea Gastrointestinal: Reports no symptoms Genitourinary: Reports no symptoms Musculoskeletal: Reports no symptoms Integumentary: Reports no symptoms Neurological: Reports no symptoms Psychological: Reports no symptoms Endocrine: Reports no symptoms Hematological/Lymphatic: Reports no symptoms Physical Exam Related Data Allergies: Coded Allergies: No Known Allergies (Unverified , 02/25/20) Triage Vital Signs Vital Signs Date Time Temp Pulse Resp B/P (MAP) Pulse Ox O2 Delivery O2 Flow Rate FiO2 03/27/20 23:27 97.8 74 22 150/81 100 Room Air Vital signs reviewed: Yes Physical Exam CONSTITUTIONAL Constitutional: Present other (anxious) HENT HENT: Present normocephalic, Present atraumatic, Present oropharynx clear/moist, Present nose normal HENT L/R: Present left ext ear normal, Present right ext ear normal EYES Eyes: Reports PERRL, Reports conjunctivae normal NECK Neck: Present ROM normal PULMONARY Pulmonary: Present respiratory distress (hyperventillation), Present other CARDIOVASCULAR Cardiovascular: Present regular rhythm, Present heart sounds normal, Present capillary refill normal, Present normal rate GASTROINTESTINAL Abdominal: Present soft, Present nontender, Present bowel sounds normal GENITOURINARY Genitourinary: Present exam deferred SKIN Skin: Present warm, Present dry MUSCULOSKELETAL Musculoskeletal: Present ROM normal NEUROLOGICAL Neurological: Present alert, Present oriented x 3, Present no gross motor or sensory deficits PSYCHOLOGICAL Psychological: Present mood/affect normal, Present judgement normal Results Laboratory Lab results reviewed: Yes Laboratory comments CBC, CMP, CE, D-Dimer ALL normal Imaging Imaging results reviewed: Yes Impressions [place] [address] Patient Name: HARMAN MAIN MR #: [id number] : 1950 Age/Sex: 69/M Req #: [id number] Adm Physician: Ordered by: FREDDY RAMIREZ DO Report #: [id number] Location: ER Room/Bed: Procedure: [id number] DX/CHEST SINGLE (PORTABLE) Exam Date: 03/28/20 Exam Time: 0105 REPORT STATUS: Signed EXAMINATION: CHEST SINGLE (PORTABLE) INDICATION: Short of breath COMPARISON: Same day abdominal CT; chest x-ray 02/25/2020 FINDINGS: TUBES and LINES: None. LUNGS: Normal lung volumes. Lungs are clear. No consolidations. PLEURA: No pleural effusion or pneumothorax. HEART AND MEDIASTINUM: Cardiac size is borderline enlarged. BONES AND SOFT TISSUES: No acute osseous lesion. Soft tissues are unremarkable. UPPER ABDOMEN: No free air under the diaphragm. IMPRESSION: Borderline cardiomegaly. Signed by: Lion Laura DO on 03/28/2020 1:53 AM Dictated By: LION LAURA DO 2 Transcribed By: CHUCKY on 03/28/20152 COPY TO: FREDDY RAMIREZ DO~ [place] [address] Patient Name: HARMAN MAIN MR #: [id number] : 1950 Age/Sex: 69/M Req #: [id number] Adm Physician: Ordered by: FREDDY RAMIREZ DO Report #: [id number] Location: ER Room/Bed: Procedure: [id number] CT/CT ABDOMEN/PELVIS W Exam Date: 03/28/20 Exam Time: 54 REPORT STATUS: Signed EXAM: CT Abdomen and Pelvis WITH contrast INDICATION: Lower abdominal pain COMPARISON: None. TECHNIQUE: Abdomen and pelvis were scanned utilizing a multidetector helical scanner from the lung base to the pubic symphysis after administration of IV contrast. Coronal and sagittal reformations were obtained. Routine protocol was performed. Scan was performed when during portal venous phase. IV CONTRAST: 100 mL of Isovue 370 ORAL CONTRAST: None COMPLICATIONS: None RADIATION DOSE: Total DLP: 545 mGy*cm Estimated effective dose: (DLP x 0.015 x size factor) mSv CTDIvol has been reviewed. It is below the limits set by the Radiation Protocol Committee (RPC). Dose modulation, iterative reconstruction, and/or weight based adjustment of the mA/kV was utilized to reduce the radiation dose to as low as reasonably achievable. FINDINGS: LINES and TUBES: None. LOWER THORAX: Aortic valve calcifications. HEPATOBILIARY: A few small hepatic cysts. No suspicious focal hepatic lesions. No biliary ductal dilation. GALLBLADDER: No radio-opaque stones or sludge. No wall thickening. SPLEEN: No splenomegaly. PANCREAS: There is fatty infiltration of the pancreas. ADRENALS: No adrenal nodules KIDNEYS/URETERS: Kidneys enhance symmetrically. No hydronephrosis. No cystic or solid mass lesions. No stones. GI TRACT: No abnormal distention, wall thickening, or evidence of bowel obstruction. Small second segment duodenal diverticulum. Appendix is normal. PELVIC ORGANS/BLADDER: Unremarkable. LYMPH NODES: No lymphadenopathy. VESSELS: Arterial calcifications. PERITONEUM / RETROPERITONEUM: No free air or fluid. BONES: Degenerative changes. Healing nondisplaced rib fractures. SOFT TISSUES: Surgical changes of inguinal hernia repair.. IMPRESSION: 1. No acute CT abnormality in the abdomen or pelvis. 2. Calcific aortic valve disease. Signed by: Lion Laura DO on 03/28/2020 1:52 AM Dictated By: LION LAURA DO 1 Transcribed By: CHUCKY on 03/28/20151 COPY TO: FREDDY RAMIREZ DO~ Procedures 12 Lead ECG Interpretation ECG Interpretation : ECG: ECG 1 Wheel Filler: Interpreted by ED physician Date: Mar 27, 2020 Prior ECG tracings: reviewed Rhythm: sinus rhythm Rate: normal BPM: 72 QRS axis: normal Conduction: right bundle branch block ST segments normal: Yes T waves normal: Yes Clinical Impression: non-specific ECG Assessment & Plan Medical Decision Making MDM Diff Dx : ACS, PTX, PE, costochondritis, anxiety Assessment & Plan Final Impression: (1) Dyspnea Depart Disposition: HOME, SELF-CARE Last Vital Signs Date Time Temp Pulse Resp B/P (MAP) Pulse Ox O2 Delivery O2 Flow Rate FiO2 03/27/20 23:27 97.8 74 22 150/81 100 Room Air Home Meds Active Scripts Risperidone (RISPERDAL) 0.5 Mg Tablet, 0.25 MG PO Q12HR PRN for ANXIETY, #30 TAB 0 Refills Prov:TED BAINS MD, ABIM 02/27/20 Famotidine (FAMOTIDINE) 20 Mg Tab, 20 MG PO BIDAC for 30 Days, #60 MG 1 Refill Prov:MARYLOU FOSTER MD 02/27/20 Aspirin (ASPIRIN CHEW) 81 Mg Chew, 81 MG PO DAILY for 30 Days, #30 MG 2 Refills Prov:MARYLOU FOSTER MD 02/27/20 Metoprolol Succinate (TOPROL XL) 25 Mg Tab.er.24h, 25 MG PO DAILY for 30 Days, #30 MG 1 Refill Prov:MARYLOU FOSTER MD 02/27/20 Medications in the ED Sodium Chloride 500 ml @ 0 mls/hr Q0M STAT IV ; Start 03/27/20 at 23:27; Stop 03/27/20 at 23:30; Status FREDDY NORRIS DO Mar 27, 2020 23:36
--- OUTSIDE RECORDS SUMMARY | 2020-03-27 23:54 | XMS REPORT | Clinical Summary ---
Author Author [facility] Organization [facility] Address Unknown Phone Unavailable Care Team Providers Care Manager Field Services Name Role Phone PCP Unavailable Allergies No [...] 11/19/2015 and Up Results Not on fileafter 03/27/2019 Insurance Type Payer Benefit Subscriber ID Effective Phone Address Plan / Dates Group [facility] xxxxxxxxx 2017-P [phone] [address] MED[address]ARE MEDICARE resent [id number] [place] [address] [place] [id number] xxxxxxxxx 2013-P [phone] QUAL[address] resent [id number] MEDICARE [place], [place] BENEFICIAR [id number] Y [facility] SELF-PAY SELF-PAY xxxxxx 2020-9 [address] [place] [address]
--- OUTSIDE RECORDS SUMMARY | 2020-03-27 23:55 | XMS REPORT | Continuity of Care Document ---
Author Author [facility] t Organization [facility] Address [address] [place] [address] Phone Unavailable Care Team Providers Care [place] Name Role Phone MD Brigitte FLORES PCP MARCIAL MIRANDA Attphys Unavailable Armani FOSTER Attphys Unavailable Dewayne WATT Attphys Unavailable Alejandro CONLEY Attphys Unavailable JARRETT ROBBINS M.D. Attphys Unavailable MIHAELA BALLARD Attphys Unavailable Armani FOSTER Admphys Unavailable Payers Payer Name Policy Type Policy Number Effective Date Expiration Date [facility] Medicare Complete [id number] 2019 00:00:[address] [facility] Medicare A & B [id number] [facility] [id number] [facility] [id number] [facility] [id number] I [facility] Problems Condition Name Condition Details Condition Category Status Onset Date Resolution Date Last Treatment Date Treating Clinician Comments Source Impacted cerumen of left ear Impacted cerumen of left ear Disease Active 2017-02-14 00:00:00 [facility] ealth H/O mastoidectomy H/O mastoidectomy Disease Active 2013-10-19 00:00:00 [facility] Hearing loss Hearing loss Disease Active 2013-10-19 00:00:00 [facility] 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 Disease Ac tive 2013-10-19 00:00:00 [facility] HLD (hyperlipidemia) HLD (hyperlipidemia) Disease Active 00:00:00 [facility] History of Known health problems: none History of Known heal th problems: none Problem Resolved [facility] Encounter for mastoidectomy cavity debridement En[place] er for mastoidectomy cavity debridement Problem Active [facility] Otalgia of left ear Otalgia of left ear Problem Active [facility] Impacted cerumen of left ear Impacted cerumen of left ear Problem Active [facility] Thyroid nodule Thyroid nodule Problem Active [facility] Chronic otitis externa Chronic otitis externa Problem Active [facility] Sensation of plugged ear on left side Sensation of plugged e ar on left side Problem Active [facility] Dyspnea Problem Active [facility] Concussion Problem Active [facility] Post-traumatic headache Problem Active [facility] Pleural effusion Problem Active [facility] Liver nodule Problem Active [facility] Lung nodule Problem Active [facility] Allergies, Adverse Reactions, Alerts Allergy Name Allergy Type Status Severity Reaction(s) Onset Date Inacti ve Date Treating Clinician Comments Source No Known Allergies DA Active U 2019-02-05 00:00:00 [facility] No Known Allergies DA Active U 2019-01-30 00:00:00 [facility] No Known Allergies DA Active U 2014-03-24 00:00:00 [facility] Family History Family Member Diagnosis Comments Start Date Stop Date Source unknown Unknown Fam Hx [facility] Social History Social Habit Start Date Stop Date Quantity Comments Source Sex Assigned [facility] Alcohol intake 2017-05-01 00:00:00 2017-05-01 00:00:00 Current drinker of alcohol (finding) [facility] Smoking Status Start Date Stop Date Source Former smoker [facility] Never smoker [facility] Medications Ordered Medication Name Filled Medication Name Start Date Stop Da te Current Medication? Ordering Clinician Indication Dosage Frequency Signature (SIG) Comments Components Source Risperidone (Risperdal) 0.5 Mg TABLET Risperidone (Risperdal ) 0.5 Mg TABLET 2020-02-27 12:47:00 Yes .25 Every 12 Hours as needed for Anxiety [facility] Aspirin (Aspirin Chew) 81 Mg CHEW Aspirin (Aspirin Chew) 81 Mg CHEW 2020-02-27 11:45:00 Yes 81 Daily [facility] Famotidine Famotidine 2020-02-27 11:45:00 Yes 20 Twice Daily Before Meals [facility] Metoprolol Succinate (Toprol Xl) 25 Mg TAB.ER.24H Meto prolol Succinate (Toprol Xl) 25 Mg TAB.ER.24H 2020-02-27 11:45:00 Yes 25 Myrtle ly [facility] Butalbital/Aspirin/Caffeine (Fiorinal 50-325-40 Mg Cap jose daniel) 1 Each CAPSULE Butalbital/Aspirin/Caffeine (Fiorinal 50-325-40 Mg Capsule) 1 Each CAPSULE 2020-02-21 08:36:00 Yes 1 Every 8 Hours as n eeded for Headache [facility] Tramadol Hcl (Ultram) 50 Mg TABLET Tramadol Hcl (Ultram) 50 Mg TABLET 2020-02-21 08:36:00 Yes 50 Every 6 Ho urs as needed for Mild Pain (1-3) Or Fever>100.8 [facility] Ciprodex 0.3-0.1 % Otic Suspension Ciprodex 0.3-0.1 % Otic S uspension 2018-11-24 00:00:00 Yes JARRETT ROBBINS M.D. 3-4 drops to the a ffected ear BID [facility] acetaminophen (TYLENOL) 325 mg tablet 2015-09-27 12:12:54 Y es 650mg Take 650 mg by mouth Before meals as needed for Pain. [facility] traMADol (ULTRAM) 50 mg tablet 2015-08-09 00:00:00 Yes Otalgia of left ear 50mg Take 1 tablet by mouth every 6 hours as needed for Pain. [facility] naproxen (NAPROSYN) 375 mg tablet 2014-06-22 00:00:00 Ye s Hearing loss 375mg Take 1 tablet by mouth 2 times daily (with meals). [facility] HYDROcodone-acetaminophen (NORCO) 5-325 mg tablet 2014-03-26 00:00:00 Yes Hearing loss 2{tbl} Take 2 tablets by mouth every 4 hours as needed for Pain. [facility] ibuprofen (MOTRIN) 800 mg tablet 2013-11-10 00:00:00 Yes Otorrhea 800mg Take 1 tablet by mouth every 8 hours as needed for Pain. [facility] Immunizations Ordered Immunization Name Filled Immunization Name Date Status Comments Source Influenza Vaccine 2013-04-23 00:00:00 Completed [facility] Vital Signs Vital Name Observation Time Observation Value Comments Source Body Temperature 2020-02-27 11:35:00 98.2 [degF] [facility] BMI (Body Mass Index) 2020-02-25 09:20:00 30.7 kg/m2 [facility] Weight 2020-02-25 03:31:00 202 [lb_av] [facility] Body Temperature 2020-02-22 22:38:00 98.6 [degF] [facility] Weight 2020-02-22 18:06:00 204 [lb_av] [facility] BMI (Body Mass Index) 2020-02-22 18:06:00 35.0 kg/m2 [facility] Weight 2020-02-21 23:50:00 204 [lb_av] [facility] BMI (Body Mass Index) 2020-02-21 23:50:00 35.0 kg/m2 [facility] Weight 2020-02-21 07:32:00 204 [lb_av] [facility] BMI (Body Mass Index) 2020-02-21 07:32:00 35.0 kg/m2 [facility] BP Systolic 2019-05-28 11:01:00 143 mm[Hg] Location: [place]; [place]: Sitting [facility] BP Diastolic 2019-05-28 11:01:00 81 mm[Hg] Location: [place]; [place]: Sitting [facility] Height 2019-05-28 11:01:00 70 [in_us] [facility] Weight 2019-05-28 11:01:00 205.5625 [lb_av] [facility] Body Mass Index Calculated 2019-05-28 11:01:00 29.5 kg/m2 [facility] Heart Rate 2019-05-28 11:01:00 84 /min [facility] Weight 2019-03-24 16:07:00 201.3125 [lb_av] [facility] Body Mass Index Calculated 2019-03-24 16:07:00 28.89 kg/m2 [facility] Height 2019-03-24 16:07:00 70 [in_us] [facility] BP Systolic 2018-11-20 10:51:00 127 mm[Hg] Location: [place]; [place]: Sitting [facility] BP Diastolic 2018-11-20 10:51:00 74 mm[Hg] Location: [place]; [place]: Sitting [facility] Height 2018-11-20 10:51:00 70 [in_us] [facility] Weight 2018-11-20 10:51:00 204.8 [lb_av] [facility] Body Mass Index Calculated 2018-11-20 10:51:00 29.39 kg/m2 [facility] Heart Rate 2018-11-20 10:51:00 77 /min [facility] BP Systolic 2018-07-03 13:29:00 127 mm[Hg] Location: [place] Matt [facility] BP Diastolic 2018-07-03 13:29:00 72 mm[Hg] Location: [place] [facility] Height 2018-07-03 13:29:00 70 [in_us] [facility] Weight 2018-07-03 13:29:00 208 [lb_av] [facility] Body Mass Index Calculated 2018-07-03 13:29:00 29.85 kg/m2 [facility] Temperature 2018-07-03 13:29:00 98 [degF] Method: Oral [facility] Heart Rate 2018-07-03 13:29:00 65 /min Location: L Brachial Artery; [facility] BP Systolic 2018-03-13 14:58:00 129 mm[Hg] Location: [place]; [place] on: Sitting [facility] BP Diastolic 2018-03-13 14:58:00 70 mm[Hg] Location: [place]; [place] on: Sitting [facility] Height 2018-03-13 14:58:00 70 [in_us] [facility] Weight 2018-03-13 14:58:00 204.5 [lb_av] [facility] Body Mass Index Calculated 2018-03-13 14:58:00 29.34 kg/m2 [facility] Heart Rate 2018-03-13 14:58:00 65 /min [facility] BP Systolic 2018-03-06 10:30:00 135 mm[Hg] Location: [place]; [place] on: Sitting [facility] BP Diastolic 2018-03-06 10:30:00 71 mm[Hg] Location: [place]; [place] on: Sitting [facility] Height 2018-03-06 10:30:00 70 [in_us] [facility] Weight 2018-03-06 10:30:00 206 [lb_av] [facility] Body Mass Index Calculated 2018-03-06 10:30:00 29.56 kg/m2 [facility] Heart Rate 2018-03-06 10:30:00 65 /min [facility] BP Systolic 2017-12-12 13:30:00 112 mm[Hg] Location: [place]; [place] on: Sitting [facility] BP Diastolic 2017-12-12 13:30:00 66 mm[Hg] Location: [place]; [place] on: Sitting [facility] Height 2017-12-12 13:30:00 70 [in_us] [facility] Weight 2017-12-12 13:30:00 209.125 [lb_av] [facility] Body Mass Index Calculated 2017-12-12 13:30:00 30.01 kg/m2 [facility] Heart Rate 2017-12-12 13:30:00 71 /min [facility] BP Systolic 2017-07-18 11:25:00 133 mm[Hg] Location: [place]: Sitting [facility] BP Diastolic 2017-07-18 11:25:00 75 mm[Hg] Location: [place]: Sitting [facility] Height 2017-07-18 11:25:00 70 [in_us] [facility] Weight 2017-07-18 11:25:00 203 [lb_av] [facility] Body Mass Index Calculated 2017-07-18 11:25:00 29.13 kg/m2 [facility] Heart Rate 2017-07-18 11:25:00 69 /min [facility] Respiration Rate 2017-07-18 11:25:00 16 /min [facility] Procedures Procedure Date / Time Performed Performing Clinician [facility] e Computed tomography of brain without radiopaque contrast 2020-02 00:00:00 [facility] Computed tomography of chest without contrast 2020-02-22 00:00:0 0 [facility] Computed tomography of brain without radiopaque contrast 2020-01 00:00:00 [facility] [place] [id number] 2018-07-03 00:00:00 [facility] History of Ear Surgery [facility] History of Hernia Repair Inguinal Sliding [facility] History of Sinus Surgery [facility] Plan of Care Planned Activity Planned Date Details Comments Source Diagnostic Test Pending 2018-07-03 00:00:00 [place] [id number] [code = 36130] [facility] Diagnostic Test Pending 2018-07-03 00:00:00 [place] [id number] [code = 62289] [facility] Future Scheduled Test 2015-11-19 00:00:00 IMM Pneumococcal A ge 65 and Up [code = IMM Pneumococcal Age 65 and Up] [facility] Future Scheduled Test 2000 00:00:00 Screening for kenyon gnant neoplasm of colon (procedure) [code = 619932007] [facility] Instructions Hypertension [facility] Instructions Dyspnea [facility] Instructions Pleural Effusion [facility] Encounters Start Date/Time End Date/Time Encounter Type Admission Type [facility] Care Department Encounter ID Source 2020-02-22 18:17:00 2020-02-22 22:45:00 Departed Emergency Room 1 ALYSA [facility] [id number] [facility] 2020-02-21 23:54:00 2020-02-22 00:51:00 Departed Emergency Room [facility] [id number] [facility] 2020-02-21 08:08:00 2020-02-21 09:00:00 Departed Emergency Room 1 YOUSIF CONLEY [facility] [id number] [facility] 2019-05-28 10:30:00 2019-05-28 10:30:00 Appointment; JARRETT ROBBINS M.D. BYRD, MICHAEL, M.D. [facility] Otorhinolaryngology [facility] [id number] [facility] 2019-03-24 14:30:00 2019-03-24 14:30:00 Appointment; JARRETT ROBBINS M.D. BYRD, MICHAEL, M.D. [facility] [id number] [facility] 2019-03-18 04:22:00 2019-03-18 07:30:00 Departed Emergency Room 1 JARRETT WATT [facility] [id number] [facility] 2019-02-25 02:56:00 2019-02-25 04:55:00 Departed Emergency Room [address] [place] [facility] [id number] [facility] 2019-01-01 13:00:00 2019-01-01 13:00:00 Appointment; JARRETT ROBBINS M.D. BYRD, MICHAEL, M.D. [facility] [id number] [facility] 2018-11-20 10:30:00 2018-11-20 10:30:00 Appointment; JARRETT ROBBINS M.D. BYRD, MICHAEL, M.D. [facility] [address] [id number] [facility] 2018-09-22 08:50:00 2018-10-21 23:59:00 Discharged Recurring [facility] [id number] [facility] 2018-08-22 11:14:00 2018-09-21 23:59:00 Discharged Recurring [facility] [id number] [facility] 2018-07-29 10:06:00 2018-08-21 23:59:00 Discharged Recurring [facility] [id number] [facility] 2018-08-19 14:52:00 2018-08-19 14:52:00 Registered Clinic 3 MIHAELA BALLARD [facility] [id number] [facility] 2018-07-03 13:00:00 2018-07-03 13:00:00 Appointment; JARRETT ROBBINS M.D. BYRD, MICHAEL, M.D. [facility] Otorhinolaryngology [address] [facility] 2018-03-13 14:30:00 2018-03-13 14:30:00 Appointment; JARRETT ROBBINS M.D. BYRD, MICHAEL, M.D. [facility] [id number] [facility] 2018-03-06 10:30:00 2018-03-06 10:30:00 Appointment; JARRETT ROBBINS M.D. BYRD, MICHAEL, M.D. [facility] [address] [id number] [facility] 2017-12-12 13:45:00 2017-12-12 13:45:00 Appointment; JARRETT ROBBINS M.D. BYRD, MICHAEL, M.D. [facility] [id number] [facility] 2017-12-09 10:26:00 2017-12-09 10:26:00 Registered Emergency Room [facility] [id number] [facility] 2017-10-11 10:30:00 2017-10-11 10:30:00 Appointment; JARRETT ROBBINS M.D. BYRD, MICHAEL, M.D. [facility] [id number] [facility] 2017-08-02 00:00:00 2017-08-02 00:00:[address] [facility] [id number] [facility] 2017-07-18 11:00:00 2017-07-18 11:00:00 Appointment; JARRETT ROBBINS M.D. BYRD, MICHAEL, M.D. [facility] [id number] [facility] 2017-05-01 11:13:40 2017-05-01 11:13:[address] [facility] [id number] [facility] 2017-05-01 11:05:25 2017-05-01 11:05:[address] [facility] [id number] [facility] 2017-04-12 09:30:00 2017-04-12 09:30:00 Appointment; JARRETT ROBBINS M.D. BYRD, MICHAEL, M.D. [facility] [id number] [facility] 2017-02-14 14:04:40 2017-02-14 14:04:[address] [facility] [id number] [facility] 2016-07-27 15:45:00 2016-07-27 15:45:00 Appointment; JARRETT ROBBINS M.D. BYRD, MICHAEL, M.D. [facility] [id number] [facility] 2016-02-03 11:00:00 2016-02-03 11:00:00 Appointment; JARRETT ROBBINS M.D. BYRD, MICHAEL, M.D. [facility] [id number] [facility] 2015-07-29 10:30:00 2015-07-29 10:30:00 Appointment; JARRETT ROBBINS M.D. BYRD, MICHAEL, M.D. [facility] [id number] [facility] Results Test Description Test Time Test Comments Results Result Comments Source - PET/CT TUMOR [facility] 2020-03-14 14:28:00 FAX: Raul Bryan [phone] [place]: B St: REG FAX: Arcelia Bucio NP [phone] Name: HARMAN MAIN [facility] : 1950 Age/S: 69/M [address] [facility] Unit #: [id number] Loc: [place] [address] Phys: Arcelia Bucio SUMAC TANNER Acct: [id number] Dis Date: Status: REG CLI PHONE #: [phone] Exam Date: 03/14/2020 0940 FAX #: [phone] Reason: SOLITARY NODULE OF LUNG EXAMS: CPT CODE: [id number] PET/CT TUMOR SK MIDTH 39549 PROCEDURE: PET CT INDICATION: Solitary pulmonary nodule COMPARISON: None. Following the IV administration of 11.6 mCi FDG, tomographic imaging was performed of the neck, chest, abdomen and pelvis. Blood glucose: 155 mg/dl. Images were reviewed at the workstation. CT imaging was performed at 3 mm increments for comparison and attenuation correction purposes. These images do not constitute a diagnostic quality CT examination and were not used to diagnose disease independently of the PET images. HEAD AND NECK: Brain parenchyma is within normal limits. Sinuses, mastoid air cells, and external auditory canals a re clear. Salivary glands and thyroid gland are within normal limits. No abnormal-appearing lymph nodes. No abnormal FDG uptake is seen. THORAX: Subsegmental atelectasis is present in the lingula and in the lower lobes. Mild coronary and aortic calcifications are present. Cardiac chambers are normal in size. No abnormal-appearing mediastinal or internal mammary lymph nodes. There is a 9 mm nodule in the right lower lobe (3/107) that does not demonstrate any appreciable FDG uptake. However this may be due to the size of the nodule resulting in FDG uptake that is below threshold for detection. Otherwise no abnormal FDG uptake is seen. ABDOMEN AND PELVIS: There are cystic appearing lesions in the liver. Pancreas is atrophic. Parapelvic cysts are present in both kidneys. Diverticulosis without findings of diverticulitis involving the sigmoid colon. Small bilateral hydroceles. At the right calcifications are seen throughout the abdominal aorta. No abnormal-appearing lymph nodes are masses. No abnormal FDG uptake is seen. PAGE 1 Signed Report (CONTINUED) FAX: Raul Bryan [phone] [place]: St: [facility] FAX: Arcelia Bucio NP [phone] Name: HARMAN MAIN [facility] : 1950 Age/S: 69/M [address] Unit #: [id number] Loc: [place] [address] Phys: Arcelia Bucio NP Acct: [id number] Dis Date: Status: REG CLI PHONE #: [phone] Exam Date: 03/14/2020944 FAX #: [phone] Reason: SOLITARY NODULE OF LUNG EXAMS: CPT CODE: [id number] PET/CT TUMOR SK MIDTH 64543 <Continued> MUSCULOSKELETAL: There are degenerative changes throughout the spine. No aggressive appearing bony lesions are present. Postsurgical changes of laparoscopic inguinal hernia repair on the ri ght side. No abnormal FDG uptake is seen. FINDINGS: Solitary nodule in the right lower lobe measuring less than 1 cm in size. Although no FDG uptake is seen, this may be attributed to the size of this nodule resulting in FDG uptake below threshold for detection. Location: [facility] at 1428 Reported and signed by: Jewel Alcantara MD CC: Raul Sevilla MD; Arcelia Bucio NP Technologist: JONY JEAN Trnscrd Date/Time/By: 03/14/2020 (1428) : By: [email or web address] Orig Print D/T: S: 03/14/2020 (5568) PAGE [address] ABDOMEN/PELVIS W 2020-03-02 18:03:00 [facility] [address] [address] Patient Name: HARMAN MAIN MR #: [id number] : 1950 Age/[facility]: 69[facility]: [id number] Req #: [id number] Adm Physician: Ordered by: MARCIAL MIRANDA MD Report #: [id number] Location: CT Room/Bed: Procedure: CT/CT ABDOMEN/PELVIS W Exam Date: 03/02/20 Exam Time: 1730 REPORT STATUS: Signed EXAM: CT Abdomen and Pelvis WITH contrast INDICATION: ABDOMINAL PAIN COMPARISON: None. TECHNIQUE: Abdomen and pelvis were scanned utilizing a multidetector helical scanner from the lung base to the pubic symphysis after administration of IV contrast. Barbara nal and sagittal reformations were obtained. Routine protocol was performed. Scan was performed when during portal venous phase. IV CONTRAST: 100 mL of Isovue 370 ORAL CONTRAST: None COMPLICATIONS: None RADIATION DOSE: Total DLP: 601.43 mGy*cm Estimated effective dose: (DLP x 0.015 x size factor) mSv CTDIvol has been reviewed. It is below the limits set by the Radiation Protocol Committee (RPC). Dose modulation, iterative reconstruction, and/or weight based adjustment of the mA/kV was utilized to reduce the radiation dose to as low as reasonably achievable. FINDINGS: LINES and TUBES: There is a 1 cm nodule in the right lower lobe (series 2 image 16) . The heart demonstrates mild aortic annular calcification and atherosclerotic calcification of the coronary vessels. LOWER THORAX: Unremarkable HEPATOBILIARY: There are hypodense lesions in the left hepatic lobe which measure 1.9 cm and 1.1 cm (6- 7 Hounsfield units) is compatible with simple cysts. No solid mass lesions. There is diffuse hepatic steatosis. No biliary ductal dilation. GALLBLADDER: No radio-opaque stones or sludge. No wall thickening. SPLEEN: No splenomegaly. PANCREAS: There is fatty infiltration of the pancreas. ADRENALS: No adrenal nodules KIDNEYS/URETERS: Kidneys enhance symmetrically. No hydronephrosis. There are multiple bilateral parapelvic cysts. No solid mass. No stones. GI TRACT: No abnormal distention, wall thickening, or evidence of bowel obstruction. Appendix is normal. PELVIC ORGANS/BLADDER: The urinary bladder is decompressed. No gross abdomen with CT identified. LYMPH NODES: No lymphadenopathy. VESSELS: Scattered mild arterial vascular calcifications. PERITONEUM / RETROPERITONEUM: No free air or fluid. BONES: There are degenerative changes in the spine. SOFT TISSUES: Unremarkable. IMPRESSION: 1. No acute abdominopelvic abnormality was identified. 2. Hepatic steatosis. 3. A1 cm nodule in the right lower lobe. If patient is high risk for lung cancer, a nonemergent baseline chest CT can be considered for complete assessment of the lungs. Signed by: Sarah Barkley MD on 03/02/2020 6:15 PM Dictated By: SARAH BARKLEY MD 14 Transcribed By: CHUCKY on 03/02/201814 COPY TO: MARCIAL MIRANDA MD Capillary blood glucose measurement by glucometer (mas s/volume) 2020-02-27 07:22:00 Test Item Bedside Glucose (test code = 28700-4) 151 70-120 Meter ID: [id number] [facility] WorthUrine color [id number] 03:50:00* Test Item Value Reference Range Interpretation Comments Urine Color (test code = 5778-6) YELLOW YELLOW [facility] [facility] ihhoook2728-82-31 03:50:00* Test Item Value Reference Range Interpretation Comments Urine Clarity (test code = 02513-5) CLEAR [facility]AR [facility] by Test strip 2020-02-27 03:50:00* Test Item Value Reference Range Interpretation Comments Urine Specific [place] (test code = 5811-5) 1.010 1.010-1.02 5 [facility] pH measurement by automated test goxtu5048-75-58 03:50:00* Test Item Value Reference Range Interpretation Comments Urine pH (test code = 77660-8) 6 5-7 [facility] leukocyte esterase detection by bysigmao3142-08-32 03:50:00* Test Item Value Reference Range Interpretation Comments Urine Leukocyte Esterase (test code = 5799-2) NEGATIVE NEGATIVE [facility] nitrite rcedfvuyy9493-00-10 03:50:00* Test Item Value Reference Range Interpretation Comments Urine Nitrite (test code = 55448-7) NEGATIVE NEGATIVE [facility] protein measurement by test strip (mass/volume)2020-02-27 03:50:00* Test Item Value Reference Range Interpretation Comments Urine Protein (test code = 5804-0) NEGATIVE NEGATIVE [facility] glucose gmbqqimjb6802-20-25 03:50:00* Test Item Value Reference Range Interpretation Comments Urine Glucose (UA) (test code = 2349-9) NEGATIVE NEGATIVE [facility] ketones detection by automated test iwxcg9847-15-68 03:50:00* Test Item Value Reference Range Interpretation Comments Urine Ketones (test code = 49450-2) NEGATIVE NEGATIVE [facility] opiates screening rbym7325-81-76 03:50:00* Test Item Value Reference Range Interpretation Comments Urine Opiates Screen (test code = 80306-0) NEGATIVE NEGATIVE ALL TESTS PERFORMED MANUALLY ON MDSave TOX/SEE TESTTexas Health [facility] Fort WorthBarbiturates screen, ezjca8462-60-87 03:50:00* Test Item Value Reference Range Interpretation Comments Urine Barbiturates Screen (test code = 708636828) NEGATIVE NEGA TIVE [facility] phencyclidine detection by screening orkynh3506-36-84 03:50:00* Test Item Value Reference Range Interpretation Comments Urine Phencyclidine Screen (test code = 69328-8) NEGATIVE NEGAT JOAQUÍN [facility] amphetamines detection by screen method > 1000 ng/oG5357-18-16 03:50:00* Test Item Value Reference Range Interpretation Comments Urine Amphetamines Screen (test code = 46575-6) NEGATIVE NEGATI VE [facility] WorthFluoroscopic procedure less than one hour xiuvrfij8050-57-44 03:50:00* Test Item Value Reference Range Interpretation Comments Urine Methamphetamines Screen (test code = Urine Metha mphetamines Screen) NEGATIVE NEGATIVE [facility] benzodiazepines detection by screening cphdbb3330-98-20 03:50:00* Test Item Value Reference Range Interpretation Comments Urine Benzodiazepines Screen (test code = 30573-5) NEGATIVE NEG ATIVE [facility] cocaine measurement (mass/volume) 2020-02-27 03:50:00* Test Item Value Reference Range Interpretation Comments Urine Cocaine Screen (test code = 3398-5) NEGATIVE NEGATIVE [facility] WorthU[facility] cannabinoids detection by screening hrirvz4245-95-41 03:50:00* Test Item Value Reference Range Interpretation Comments Urine Cannabinoids Screen (test code = 61942-8) NEGATIVE NEGATI VE THESE RESULTS ARE FOR MEDICAL TREATMENT ONLYTHIS REPORT CONTAINS UNCONFIR MED SCREENING RESULTS*POSITIVE RESULTS WILL BE CONFIRMED BY REFERENCE LAB UPON R EQUEST CUT-OFFDRUG CLASS CONCENTRATION ng/mLAmphetamines 1000Methamphetamines 1000Cocaine 300Opiate 300Phencyc lidine 25Cannabinoid 50Barbiturates 300Benzodiazepine 300Methadone 300[facility] methadone nmwdwf8904-94-55 03:50:00* Test Item Value Reference Range Interpretation Comments Urine Methadone Screen (test code = 22644-0) NEGATIVE NEGATIVE THESE RESULTS ARE FOR MEDICAL TREATMENT ONLYTHIS REPORT CONTAINS UNCONFIR MED SCREENING RESULTS*POSITIVE RESULTS WILL BE CONFIRMED BY REFERENCE LAB UPON R EQUEST CUT-OFFDRUG CLASS CONCENTRATION ng/mLAmphetamines 1000Methamphetamines 1000Cocaine Metabolite 300Opiate 300Phencyc lidine 25Cannabinoid 50Barbiturates 300Benzodiazepine 300Methadone 300[facility] urobilinogen measurement by test strip (mass/volume)2020-02-27 03:50:00* Test Item Value Reference Range Interpretation Comments Urine Urobilinogen (test code = 90387-2) 0.2 0.2-1 [facility] total bilirubin measurement (mass/volume)2020-02-27 03:50:00* Test Item Value Reference Range Interpretation Comments Urine Bilirubin (test code = 1978-6) NEGATIVE NEGATIVE [facility] erythrocytes zfoqrmhtf5551-96-50 03:50:00* Test Item Value Reference Range Interpretation Comments Urine Blood (test code = 96420-5) NEGATIVE NEGATIVE [facility] WorthAutomated urine sediment leukocyte count by microscopy (number/high power field)2020-02-27 03:50:00* Test Item Value Reference Range Interpretation Comments Urine WBC (test code = 5821-4) 0-5 0-5 [facility] WorthErythrocytes detection in urine sediment by light mrwosegikg9316-43-80 03:50:00* Test Item Value Reference Range Interpretation Comments Urine RBC (test code = 75743-0) 0-5 0-5 [facility] WorthBacteria detection in urine sediment by light xsgjnafwgb5796-24-99 03:50:00* Test Item Value Reference Range Interpretation Comments Urine Bacteria (test code = 86817-0) RARE NONE [facility] WorthEpithelial cells detection in urine sediment by light subnynejvc1525-10-34 03:50:00* Test Item Value Reference Range Interpretation Comments Urine Epithelial Cells (test code = 53410-6) FEW NONE [facility]er[facility] plasma triglyceride measurement (mass/volume)2020-02-26 05:20:00* Test Item Value Reference Range Interpretation Comments Triglycerides Level (test code = 2571-8) 158 0-149 [facility]er[facility] or plasma cholesterol measurement (mass/volume)2020-02-26 05:20:00* Test Item Value Reference Range Interpretation Comments Cholesterol Level (test code = 2093-3) 203 0-199 Less than 200 mg/dL Low Uchv192 - 239 mg/dL Borderline Tbyr836 m g/dl and greater High Risk [facility]er[facility] or plasma cholesterol in LDL measurement (mass/volume) 2020-02-26 05:20:00* Test Item Value Reference Range Interpretation Comments LDL Cholesterol (test code = 2089-1) 135 60-130 [facility]er[facility] plasma cholesterol in HDL measurement (mass/volume)2020-02-26 05:20:00* Test Item Value Reference Range Interpretation Comments HDL Cholesterol (test code = 2085-9) 36 40-60 [facility]er[facility] or plasma total cholesterol/cholesterol in HDL mass xppmf1224-36-88 05:20:00* Test Item Value Reference Range Interpretation Comments Cholesterol/HDL Ratio (test code = 9830-1) 5.6 3.9-4.7 [facility] WorthTroponin I measurement by highly sensitive enzyme ylfmaxfrnzr4299-88-06 05:20:00* Test Item Value Reference Range Interpretation Comments Troponin I (test code = 90665-0) 0.001 0-0.300 [facility]Bl[facility] leukocytes automated count (number/volume)2020-02-26 05:05:00* Test Item Value Reference Range Interpretation Comments White Blood Count (test code = 6690-2) 4.76 4.8-10.8 [facility] WorthBlood erythrocytes automated count (number/volume)2020-02-26 05:05:00* Test Item Value Reference Range Interpretation Comments Red Blood Count (test code = 789-8) 4.74 4.3-5.7 [facility] WorthBlood hemoglobin measurement (moles/volume)2020-02-26 05:05:00* Test Item Value Reference Range Interpretation Comments Hemoglobin (test code = 86574-9) 14.8 14.0-18.0 [facility] WorthAutomated blood hematocrit (volume fraction)2020-02-26 05:05:00* Test Item Value Reference Range Interpretation Comments Hematocrit (test code = 4544-3) 43.2 38.2-49.6 [facility] WorthAutomated erythrocyte mean corpuscular usffir6913-85-08 05:05:00* Test Item Value Reference Range Interpretation Comments Mean Corpuscular Volume (test code = 787-2) 91.1 81-99 [facility] WorthAutomated erythrocyte mean corpuscular hemoglobin (mass per erythrocyte)2020-02-26 05:05:00* Test Item Value Reference Range Interpretation Comments Mean Corpuscular Hemoglobin (test code = 785-6) 31.2 28-32 [facility] WorthAutomated erythrocyte mean corpuscular hemoglobin concentration measurement (mass/volume)2020-02-26 05:05:00* Test Item Value Reference Range Interpretation Comments Mean Corpuscular Hemoglobin Concent (test code = 786-4) 34.3 31-35 [facility] WorthRDW OeqCu-Cbh4590-38-04 05:05:00* Test Item Value Reference Range Interpretation Comments Red Cell Distribution Width (test code = 51503-6) 12.2 11.7 -14.4 [facility] WorthAutomated blood platelet count (count/volume)2020-02-26 05:05:00* Test Item Value Reference Range Interpretation Comments Platelet Count (test code = 777-3) 149 140-360 [facility] WorthAutfirsthealthed blood segmented neutrophil count as percentage of total onikmxykss8702-79-05 05:05:00* Test Item Value Reference Range Interpretation Comments Neutrophils (%) (Auto) (test code = 32435-7) 50.9 38.7-80.0 [facility] WorthAutomated blood lymphocyte count as percentage ot total mubgfbfphx8998-17-67 05:05:00* Test Item Value Reference Range Interpretation Comments Lymphocytes (%) (Auto) (test code = 736-9) 36.3 18.0-39.1 [facility] WorthAutomated blood monocyte count as percentage of total ahkmunpqpo6424-08-97 05:05:00* Test Item Value Reference Range Interpretation Comments Monocytes (%) (Auto) (test code = 5905-5) 8.6 4.4-11.3 [facility] WorthAutomated blood eosinophil count as percentage of total rwesyyqteh8853-87-13 05:05:00* Test Item Value Reference Range Interpretation Comments Eosinophils (%) (Auto) (test code = 713-8) 3.6 0.0-6.0 [facility] WorthAutomated blood basophil count as percentage of total cocuahsdjh1184-19-59 05:05:00* Test Item Value Reference Range Interpretation Comments Basophils (%) (Auto) (test code = 706-2) 0.4 0.0-1.0 [facility] WorthFluoroscopic procedure less than one hour sdfobiak6738-53-57 05:05:00* Test Item Value Reference Range Interpretation Comments IM GRANULOCYTES % (test code = IM GRANULOCYTES %) 0.2 0.0- 1.0 [facility] WorthAutomated blood neutrophil count 2020-02-26 05:05:00* Test Item Value Reference Range Interpretation Comments Neutrophils # (Auto) (test code = 751-8) 2.4 2.1-6.9 [facility] WorthBlood lymphocytes count (number/volume) 2020-02-26 05:05:00* Test Item Value Reference Range Interpretation Comments Lymphocytes # (Auto) (test code = 12757-0) 1.7 1.0-3.2 [facility]Bl[facility] monocytes automated count (number/volume)2020-02-26 05:05:00* Test Item Value Reference Range Interpretation Comments Monocytes # (Auto) (test code = 742-7) 0.4 0.2-0.8 [facility] WorthAutomated blood eosinophil count 2020-02-26 05:05:00* Test Item Value Reference Range Interpretation Comments Eosinophils # (Auto) (test code = 711-2) 0.2 0.0-0.4 [facility] WorthAutomated blood basophil count (count/volume)2020-02-26 05:05:00* Test Item Value Reference Range Interpretation Comments Basophils # (Auto) (test code = 704-7) 0.0 0.0-0.1 [facility] WorthFluoroscopic procedure less than one hour qrawzcyj0504-87-62 05:05:00* Test Item Value Reference Range Interpretation Comments Absolute Immature Granulocyte (auto (naty t code = Absolute Immature Granulocyte (auto) 0.01 0-0.1 [facility] plasma sodium measurement (moles/volume)2020-02-26 05:05:00* Test Item Value Reference Range Interpretation Comments Sodium Level (test code = 2951-2) 139 136-145 [facility]er[facility] or plasma potassium measurement (moles/volume)2020-02-26 05:05:00* Test Item Value Reference Range Interpretation Comments Potassium Level (test code = 2823-3) 3.7 3.5-5.1 [facility] plasma chloride measurement (moles/volume)2020-02-26 05:05:00* Test Item Value Reference Range Interpretation Comments Chloride Level (test code = 2075-0) 106 98-107 [facility]er[facility] or plasma carbon dioxide, total measurement (moles/volume)2020-02-26 05:05:00* Test Item Value Reference Range Interpretation Comments Carbon Dioxide Level (test code = 2028-9) 22 22-29 [facility] or plasma anion sfy8611-64-77 05:05:00* Test Item Value Reference Range Interpretation Comments Anion Gap (test code = 43357-5) 14.7 8-16 [facility] plasma urea nitrogen measurement (mass/volume)2020-02-26 05:05:00* Test Item Value Reference Range Interpretation Comments Blood Urea Nitrogen (test code = 3094-0) 12 7-26 [facility] plasma creatinine measurement (mass/volume)2020-02-26 05:05:00* Test Item Value Reference Range Interpretation Comments Creatinine (test code = 2160-0) 0.82 0.72-1.25 [facility]er[facility] or plasma urea nitrogen/creatinine mass aadny1224-01-67 05:05:00* Test Item Value Reference Range Interpretation Comments BUN/Creatinine Ratio (test code = 3097-3) 15 6-25 [facility] WorthEstimated glomerular filtration rate (GFR) omfcxpaqwnjwm7522-75-87 05:05:00* Test Item Value Reference Range Interpretation Comments Estimat Glomerular Filtration Rate (test code = 850931376) > 60 >60 Ranges were taken from the National Kidney Disease Education Program and the [place] [facility] Foundation literature.Reference ranges:60 or greater: Twqkgf52-01 ( for 3 consecutive months): Chronic kidney disease 15 or less: Kidney failureTexas Health Southwest Fort WorthGlucose dnwhknexjhx8918-18-10 05:05:00* Test Item Value Reference Range Interpretation Comments Glucose Level (test code = MEK4420) 131 74-118 [facility] or plasma calcium measurement (mass/volume)2020-02-26 05:05:00* Test Item Value Reference Range Interpretation Comments Calcium Level (test code = 60106-1) 8.4 8.4-10.2 [facility] WorthFluoroscopic procedure less than one hour kjvhvvvk4969-71-05 05:05:00* Test Item Value Reference Range Interpretation Comments Hemoglobin A1c Percent (test code = Hemoglobin A1c Percent) 8.9 4.0-7.0 [facility] or plasma total bilirubin measurement (mass/volume)2020-02-26 05:05:00* Test Item Value Reference Range Interpretation Comments Total Bilirubin (test code = 1975-2) 0.5 0.2-1.2 [facility] WorthFluoroscopic procedure less than one hour esubkvwg0354-89-47 05:05:00* Test Item Value Reference Range Interpretation Comments Aspartate Amino Transf (AST/SGOT) (test code = Aspartate Amino Transf (AST/SGOT)) 17 5-34 [facility] or plasma alanine aminotransferase measurement (enzymatic activity/volume)2020-02-26 05:05:00* Test Item Value Reference Range Interpretation Comments Alanine Aminotransferase (ALT/SGPT) (test code = 1742-6) 24 0-55 [facility]er[facility] or plasma protein measurement (mass/volume)2020-02-26 05:05:00* Test Item Value Reference Range Interpretation Comments Total Protein (test code = 2885-2) 6.1 6.5-8.1 [facility] plasma albumin measurement (mass/volume)2020-02-26 05:05:00* Test Item Value Reference Range Interpretation Comments Albumin (test code = 1751-7) 3.8 3.5-5.0 [facility] WorthPlasma globulin measurement (mass/volume) 2020-02-26 05:05:00* Test Item Value Reference Range Interpretation Comments Globulin (test code = 21319-9) 2.3 2.3-3.5 [facility] or plasma albumin/globulin mass hzryo0049-46-70 05:05:00* Test Item Value Reference Range Interpretation Comments Albumin/Globulin Ratio (test code = 1759-0) 1.7 0.8-2.0 [facility] or plasma alkaline phosphatase measurement (enzymatic activity/volume)2020-02-26 05:05:00* Test Item Value Reference Range Interpretation Comments Alkaline Phosphatase (test code = 6768-6) 74 40-150 [facility] plasma creatine kinase measurement (enzymatic activity/volume)2020-02-25 22:20:00* Test Item Value Reference Range Interpretation Comments Creatine Kinase (test code = 2157-6) 32 30-200 [facility] or plasma creatine kinase MB measurement (mass/volume)2020-02-25 22:20:00* Test Item Value Reference Range Interpretation Comments Creatine Kinase MB (test code = 96644-1) 0.40 0-5.0 [facility] WorthCT BRAIN OZ8287-83-34 05:33:00 [facility] [address] [place] [address] Patient Name: HARMAN MUNIZ MR #: [id number] : 1950 Age/Sex: 69/M Req #: [id number] Adm Physician: Ordered by: FREDDY RAMIREZ DO Report #: [id number] Location: ER Room/Bed: Procedure: [id number] CT/CT BRAIN WO Exam Date: 02/25/20 Exam Time: 0420 REPORT STATUS: Signed EXAMINATION: Head CT w ithout contrast. HISTORY:Headache. COMPARISON:None. TECHNIQUE: Multidetector axial images were obtained from the foramen magnum to the vertex without contrast. The images were reconstructed using brain and bone algorith ms. Thin section brain images were reformatted into coronal and sagittal plan es. Dose modulation, iterative reconstruction, and/or weight based adjustment of the mA/kV was utilized to reduce the radiation dose to as low as reasonably achievable. Intravenous contrast: None IMAGE QUALITY: Suboptimal evaluation particularly at the level of skull base and posterior fossa structu res due to streak artifacts. FINDINGS: Skull/scalp: No lytic or blast ic. lesions. No surgical changes. Parenchyma: Nonspecific few, scattered supratentorial white matter hypodensity are likely related to small vessel isc hemic changes. No acute hemorrhage, mass or acute major vascular territorial i nfarct. Arteries: No density suggestive of thrombosis. Dural sinu ses: No abnormal density suggestive of thrombosis. Ventricles: No hydroce phalus or displacement. Extra-axial spaces: No abnormal density. B rain volume: Mild generalized cerebral volume loss. Craniocervical junctio n: No mass, Chiari malformation, or basilar invagination. Sella: No mass . Paranasal/mastoid sinuses: Imaged portions unremarkable. IMPRES MADISYN: No acute intracranial abnormality. Mild supratentorial white matter microvascular ischemic changes. Mild generalized cerebral volume loss. Signed by: Dr. Sharri Murcia M.D. on 02/25/2020 5:36 AM Dictated By: Alejandro MURCIA MD 5 Transcribed By: CHUCKY on 02/25/20535 COPY TO: FREDDY RAMIREZ DO CHEST SINGLE (PORTABLE)2020-02-25 05:11:00 [place] [address] Patient Name: HARMAN MUNIZ MR #: [id number] : 1950 Age/Sex: 69/M Req #: [id number] Adm Physician: MARYLOU FOSTER MD Ordered by: FREDDY RAMIREZ DO Report #: [id number] Location: MED/SURG2 Room/Bed: [facility] Procedure: [id number] DX/CHEST SINGLE (PORTABLE) Exam Date: 02/25/20 Exam Time: 10 11 REPORT STATUS: Signed EXAMINA TION: CHEST SINGLE (PORTABLE) INDICATION: Y SOB [place] RISON: None FINDINGS: AP view TUBES and LINES: None. L UNGS: Lungs are well inflated. There is no evidence of pneumonia or pulmonar y edema. PLEURA: No pleural effusion or pneumothorax. HEART AND MEDIA STINUM: The cardiomediastinal silhouette is unremarkable. BONES AND SO FT TISSUES: No acute osseous lesion. Soft tissues are unremarkable. UPP ER ABDOMEN: No free air under the diaphragm. IMPRESSION: No acute th oracic abnormality. Signed by: Dr. Duncan Turk MD on 02/25/2020 5:12 AM Dictated By: DUNCAN TURK MD 1 Transcribed By: CHUCKY on 02/25/20511 COPY TO: FREDDY OBRIEN DO Fluoroscopic procedure less than one hour duration 2020-02-25 04:22:00* Test Item Value Reference Range Interpretation Comments Coronavirus (PCR) (test code = Coronavirus (PCR)) NOT DETECTED NOTD ETECTED SARS-COV2/RT-PCR CEPHEIDResults are for the detection of SARS-COV-2 RNA. The JANETT S-COV-2 RNA is generally detectable in nasopharyngeal swab specimens during the acute phase of infection. Positive results are indicitive of active infection wi SARS-COV-2; clinical correlation with patient history and other diagnostic in formation is necessary to determine patient infection status. Positive results d o not rule out bacterial infection or co-infection with other viruses. The agent detected may not be the definite cause of the disease.The limit of detection for this assay is 250 copies/mLThe SARS-CoV-2 test is a rapid, real-time RT-PCR test intended for the qualitative detection of nucleic acid from SARS-CoV-2 in nando opharyngeal swab specimen collected from individuals suspected of COVID-19 by eir healthcare provider. This test has not been Food and Drug Administration (FD A) cleared or approved and has been authorized by FDA under an Emergency Use Aut horization (EUA). This EUA will be effective until the declaration that circumst ances exist justifying the authorization of the emergency use of in vitro diagno stic test for detection and or diagnosis of COVID-19 is terminated under section 564(b) of the Act, or the the EUA is revoked under 564(g) of the ACT.[facility] WorthFibrin D-dimer DDU measurement in platelet poor plasma (mass/volume)2020-02-25 03:45:00* Test Item Value Reference Range Interpretation Comments D-Dimer Quantitative (PE/DVT) (test code = 94621-5) < 100 0- 400 The Triage D-Dimer Test has not been evaluated for use as sole evidence for the presence or absence of PE or DVT. As with all in vitro diagnostic tests, the te st results should be interpreted by the physician in conjunction with clinical f indings and other test results.Test results are reported in D-dimer units.[facility] WorthBNP Cxn-mCmc7631-74-03 03:45:00* Test Item Value Reference Range Interpretation Comments B-Type Natriuretic Peptide (test code = 89479-6) < 10.0 0-100 [facility] WorthCT CHEST KI3343-87-14 22:11:00 [facility] [address] [place] [address] Patient Name: HARMAN SHEN MR #: [id number] : 1950 Age/Sex: 69/M Req #: [id number] Adm Physician: Ordered by: JARRETT WATT MD Report #: [id number] Location: ER Room/Bed: Procedure: [id number] CT/CT CH EST WO Exam Date: 02/22/20 Exam Time: 2053 REPORT STATUS: Signed EXAM: CT Chest WITH OUT contrast INDICATION: eval findings on cxr Y COMPARISON: chest x-ray TECHNIQUE: Chest was scanned utilizing a multidetector helical scanner from the lung apex through the level of the adrenal glands wi thout administration of IV contrast. Absence of intravenous contrast decreases sensitivity for detection of lymphadenopathy and vascular pathology. Coronal and sagittal reformations were obtained. Routine protocol was performed. IV CONTRAST: None COMPLICATIONS: None RADIATION DOSE: Tot al DLP: 505.76 mGy*cm Estimated effective dose: (DLP x 0.014 x size facto r) mSv CTDIvol has been reviewed. It is below the limits set by the Radia tion Protocol Committee (RPC). FINDINGS: LINES/ TUBES: No ne. LUNGS AND AIRWAYS: Mild bibasilar linear atelectasis/scarring. 9 mm ri ght basilar nodule (series 3, image 75). Airways are normal. PLEURA: Trac e right pleural effusion. HEART AND MEDIASTINUM: The thyroid gland is ovi l. No mediastinal, hilar or axillary lymphadenopathy. The heart is borderlin e in size.. There is no pericardial effusion. Atherosclerotic calcification o f aorta and coronary arteries. Main pulmonary artery measures 3.2 cm, suggesti ve of pulmonary hypertension. UPPER ABDOMEN: Heterogeneous liver parenchy ma, related to areas of fat deposition. There are multiple ill-defined left he patic lobe hypodensities measuring up to 1.5 cm which cannot be characterized on this unenhanced study. BONES: Old fracture deformities of posterior left 10th and 11th ribs. SOFT TISSUES: Unremarkable. IMPRESSION: 1. Tra ce right pleural effusion. 2. 9 mm right basilar lung nodule. Recommend furth er evaluation with PET/CT or short-term follow-up in 3 months. 3. Heterogen eous steatotic liver. There are also left hepatic lobe hypodensities which can not be characterized on this unenhanced study. Recommend nonurgent liver mass protocol MRI for further evaluation. Signed by: Dr. Duncan Turk MD on 10:22 PM Dictated By: DUNCAN TURK MD 21 Transcribed By: CHUCKY on 02/22/202221 COPY TO: JARRETT WATT MD CHEST SINGLE (PORTABLE)2020-02-22 19:42:00 [place] [address] Patient Name: HARMAN SHEN MR #: [id number] : 1950 Age/Sex: 69/M Req #: [id number] Adm Physician: Ordered by: JARRETT WATT MD Report #: [id number] Location: ER Room/Bed: Procedure: [id number] DX/CHEST SINGLE (PORTABLE) Exam Date: 02/22/20 Exam Time: 18 56 REPORT STATUS: Signed EXAMINA TION: CHEST SINGLE (PORTABLE) INDICATION: SHORT OF BREATH COMPARI SON: Multiple prior chest x-ray examinations most recent dated 02/21/2020. FINDINGS: AP view TUBES and LINES: None. . LUNGS /PLEURA: Lungs are well inflated. There is no evidence of pneumonia or pulmo nary edema.. There is new obscuration of the right costophrenic angles which c ould be due to effusion and or atelectasis. HEART AND MEDIASTINUM: The car diomediastinal silhouette is unremarkable. BONES AND SOFT TISSUES: No acute osseous lesion. Soft tissues are unremarkable. UPPER ABDOMEN: No f ree air under the diaphragm. IMPRESSION: New obscuration of the r ight costophrenic angles which could be due to effusion and or atelectasis. Signed by: Kvng Santamaria MD on 02/22/2020 7:44 PM Dictated By: KVNG SANTAMARIA MD 43 Transcribed By: CHUCKY on 02/22/201943 COPY TO: JUHI WATT MD Blood leukocytes automated count (number/volume)2020-02-22 18:27:00* Test Item Value Reference Range Interpretation Comments White Blood Count (test code = 6690-2) 5.67 4.8-10.8 [facility] automated count (number/volume)2020-02-22 18:27:00* Test Item Value Reference Range Interpretation Comments Red Blood Count (test code = 789-8) 4.67 4.3-5.7 [facility] Worth[facility] hemoglobin measurement (moles/volume)2020-02-22 18:27:00* Test Item Value Reference Range Interpretation Comments Hemoglobin (test code = 38354-9) 14.2 14.0-18.0 [facility] WorthAutomated blood hematocrit (volume fraction)2020-02-22 18:27:00* Test Item Value Reference Range Interpretation Comments Hematocrit (test code = 4544-3) 42.6 38.2-49.6 [facility] WorthAutomated erythrocyte mean corpuscular xwnnpc6055-91-07 18:27:00* Test Item Value Reference Range Interpretation Comments Mean Corpuscular Volume (test code = 787-2) 91.2 81-99 [facility] WorthAutomated erythrocyte mean corpuscular hemoglobin (mass per erythrocyte)2020-02-22 18:27:00* Test Item Value Reference Range Interpretation Comments Mean Corpuscular Hemoglobin (test code = 785-6) 30.4 28-32 [facility] WorthAutomated erythrocyte mean corpuscular hemoglobin concentration measurement (mass/volume)2020-02-22 18:27:00* Test Item Value Reference Range Interpretation Comments Mean Corpuscular Hemoglobin Concent (test code = 786-4) 33.3 31-35 [facility] WorthRDW YybQx-Pjr4357-16-31 18:27:00* Test Item Value Reference Range Interpretation Comments Red Cell Distribution Width (test code = 87954-7) 12.5 11.7 -14.4 [facility] WorthAutomated blood platelet count (count/volume)2020-02-22 18:27:00* Test Item Value Reference Range Interpretation Comments Platelet Count (test code = 777-3) 163 140-360 [facility] WorthAutomated blood segmented neutrophil count as percentage of total kymnqntxxk4279-48-15 18:27:00* Test Item Value Reference Range Interpretation Comments Neutrophils (%) (Auto) (test code = 00996-0) 58.8 38.7-80.0 [facility] WorthAutomated blood lymphocyte count as percentage ot total dxjotmpodk6517-42-53 18:27:00* Test Item Value Reference Range Interpretation Comments Lymphocytes (%) (Auto) (test code = 736-9) 29.3 18.0-39.1 [facility] WorthAutomated blood monocyte count as percentage of total ceyysmrzxt9508-14-81 18:27:00* Test Item Value Reference Range Interpretation Comments Monocytes (%) (Auto) (test code = 5905-5) 9.2 4.4-11.3 [facility] WorthAutomated blood eosinophil count as percentage of total tcxetkoumv9375-11-80 18:27:00* Test Item Value Reference Range Interpretation Comments Eosinophils (%) (Auto) (test code = 713-8) 1.9 0.0-6.0 [facility] WorthAutomated blood basophil count as percentage of total rratxvcgmy0565-72-68 18:27:00* Test Item Value Reference Range Interpretation Comments Basophils (%) (Auto) (test code = 706-2) 0.4 0.0-1.0 [facility] WorthFluoroscopic procedure less than one hour arpfskje1413-29-45 18:27:00* Test Item Value Reference Range Interpretation Comments IM GRANULOCYTES % (test code = IM GRANULOCYTES %) 0.4 0.0- 1.0 [facility] WorthAutomated blood neutrophil count 2020-02-22 18:27:00* Test Item Value Reference Range Interpretation Comments Neutrophils # (Auto) (test code = 751-8) 3.3 2.1-6.9 [facility] WorthBlood lymphocytes count (number/volume) 2020-02-22 18:27:00* Test Item Value Reference Range Interpretation Comments Lymphocytes # (Auto) (test code = 26711-3) 1.7 1.0-3.2 [facility] WorthBlood monocytes automated count (number/volume)2020-02-22 18:27:00* Test Item Value Reference Range Interpretation Comments Monocytes # (Auto) (test code = 742-7) 0.5 0.2-0.8 [facility] WorthAutomated blood eosinophil count 2020-02-22 18:27:00* Test Item Value Reference Range Interpretation Comments Eosinophils # (Auto) (test code = 711-2) 0.1 0.0-0.4 [facility] WorthAutomated blood basophil count (count/volume)2020-02-22 18:27:00* Test Item Value Reference Range Interpretation Comments Basophils # (Auto) (test code = 704-7) 0.0 0.0-0.1 [facility] WorthFluoroscopic procedure less than one hour pupmlaex0803-23-04 18:27:00* Test Item Value Reference Range Interpretation Comments Absolute Immature Granulocyte (auto (naty t code = Absolute Immature Granulocyte (auto) 0.02 0-0.1 [facility] sodium measurement (moles/volume)2020-02-22 18:27:00* Test Item Value Reference Range Interpretation Comments Sodium Level (test code = 2951-2) 137 136-145 [facility]er[facility] potassium measurement (moles/volume)2020-02-22 18:27:00* Test Item Value Reference Range Interpretation Comments Potassium Level (test code = 2823-3) 3.9 3.5-5.1 [facility]er[facility] chloride measurement (moles/volume)2020-02-22 18:27:00* Test Item Value Reference Range Interpretation Comments Chloride Level (test code = 2075-0) 105 98-107 [facility]er[facility] or plasma carbon dioxide, total measurement (moles/volume)2020-02-22 18:27:00* Test Item Value Reference Range Interpretation Comments Carbon Dioxide Level (test code = 2028-9) 21 22-29 [facility] or plasma anion pws8485-87-31 18:27:00* Test Item Value Reference Range Interpretation Comments Anion Gap (test code = 74077-3) 14.9 8-16 [facility] urea nitrogen measurement (mass/volume)2020-02-22 18:27:00* Test Item Value Reference Range Interpretation Comments Blood Urea Nitrogen (test code = 3094-0) 17 7-26 [facility]er[facility] creatinine measurement (mass/volume)2020-02-22 18:27:00* Test Item Value Reference Range Interpretation Comments Creatinine (test code = 2160-0) 0.93 0.72-1.25 [facility]er[facility] or plasma urea nitrogen/creatinine mass ukdhz8283-64-44 18:27:00* Test Item Value Reference Range Interpretation Comments BUN/Creatinine Ratio (test code = 3097-3) 18 6- [facility] WorthEstimated glomerular filtration rate (GFR) rxnnozjgijthv7391-83-61 18:27:00* Test Item Value Reference Range Interpretation Comments Estimat Glomerular Filtration Rate (test code = 469098576) > 60 >60 Ranges were taken from the National Kidney Disease Education Program and the [place] [facility] Foundation literature.Reference ranges:60 or greater: Hxwxmm14-58 ( for 3 consecutive months): Chronic kidney disease 15 or less: Kidney failureTexas Health Southwest Fort WorthGlucose sjsqvbcmurd1666-28-86 18:27:00* Test Item Value Reference Range Interpretation Comments Glucose Level (test code = AOU0487) 148 74-118 [facility]er[facility] or plasma calcium measurement (mass/volume)2020-02-22 18:27:00* Test Item Value Reference Range Interpretation Comments Calcium Level (test code = 52940-0) 8.8 8.4-10.2 [facility] Hospitaler[facility] or plasma creatine kinase measurement (enzymatic activity/volume)2020-02-22 18:27:00* Test Item Value Reference Range Interpretation Comments Creatine Kinase (test code = 2157-6) 53 30-200 [facility] Hospitalerum or plasma creatine kinase MB measurement (mass/volume)2020-02-22 18:27:00* Test Item Value Reference Range Interpretation Comments Creatine Kinase MB (test code = 66834-4) 1.10 0-5.0 [facility] WorthTroponin I measurement by highly sensitive enzyme rkabuvhrdgu2052-08-57 18:27:00* Test Item Value Reference Range Interpretation Comments Troponin I (test code = 23973-8) 0.005 0-0.300 [facility] WorthCT BRAIN OU7985-91-53 08:45:00 [facility] [address] [place] [address] Patient Name: HARMAN SHEN MR #: [id number] : 1950 Age/Sex: 69/M Req #: [id number] Adm Physician: Ordered by: YOUSIF CONLEY DO Report #: [id number] Location: ER Room/Bed: Procedure: [id number] CT/CT BRAIN WO Exam Date: 02/21/20 Exam [...] disease. No masses, hemorrhage, or acute or cattle dipper dario cortical based vascular insults. Suprasellar region: No abnormalities. Craniocervical junction: The foramen magnum is patent. No Chiari one malfor mation. Incidental findings: Atherosclerotic calcification of the cavern ous and supraclinoid internal carotid arteries. Impression: 1. No a cute intracranial finding. 2. Mild chronic microvascular ischemic change a nd volume loss. Signed by: Dr. Meaghan Sehffield M.D. on 02/21/2020 8:48 AM Dictated By: MEAGHAN TESFAYE MD 0848 Transcribed By: CHUCKY on 02/21/20 084 8 COPY TO: YOUSIF CONLEY DO CHEST SINGLE (PORTABLE)2020-02-21 08:16:00 [place] [address] Patient Name: HARMAN MUNIZ MR #: [id number] : 1950 Age/Sex: 69/M Req #: [id number] Adm Physician: Ordered by: YOUSIF CONLEY DO Report #: [id number] Location: ER Room/Bed: Procedure: [id number] DX/CHES T SINGLE (PORTABLE) Exam Date: 02/21/20 [...] MD on 02/21/2020 8:17 AM Dictated By: SARAH Hart kenia Signed By: SARAH BARKLEY MD on 02/21/20816 Transcribed By: CHUCKY on 02/21/20816 COPY TO: YOUSIF CONLEY DO Blood leukocytes automated count (number/volume)2020-02-21 07:44:00* Test Item Value Reference Range Interpretation Comments White Blood Count (test code = 6690-2) 5.29 4.8-10.8 [facility] WorthBlood erythrocytes automated count (number/volume)2020-02-21 07:44:00* Test Item Value Reference Range Interpretation Comments Red Blood Count (test code = 789-8) 4.68 4.3-5.7 [facility] WorthBlood hemoglobin measurement (moles/volume)2020-02-21 07:44:00* Test Item Value Reference Range Interpretation Comments Hemoglobin (test code = 33473-8) 14.2 14.0-18.0 [facility] WorthAutomated blood hematocrit (volume fraction)2020-02-21 07:44:00* Test Item Value Reference Range Interpretation Comments Hematocrit (test code = 4544-3) 42.6 38.2-49.6 [facility] WorthAutomated erythrocyte mean corpuscular gtahgl7287-15-08 07:44:00* Test Item Value Reference Range Interpretation Comments Mean Corpuscular Volume (test code = 787-2) 91.0 81-99 [facility] WorthAutomated erythrocyte mean corpuscular hemoglobin (mass per erythrocyte)2020-02-21 07:44:00* Test Item Value Reference Range Interpretation Comments Mean Corpuscular Hemoglobin (test code = 785-6) 30.3 28-32 [facility] WorthAutomated erythrocyte mean corpuscular hemoglobin concentration measurement (mass/volume)2020-02-21 07:44:00* Test Item Value Reference Range Interpretation Comments Mean Corpuscular Hemoglobin Concent (test code = 786-4) 33.3 31-35 [facility] WorthRDW VqiKx-Ssr8885-50-30 07:44:00* Test Item Value Reference Range Interpretation Comments Red Cell Distribution Width (test code = 71859-2) 12.7 11.7 -14.4 [facility] WorthAutomated blood platelet count (count/volume)2020-02-21 07:44:00* Test Item Value Reference Range Interpretation Comments Platelet Count (test code = 777-3) 147 140-360 [facility] WorthAutomated blood segmented neutrophil count as percentage of total nbskbuktqs8164-24-18 07:44:00* Test Item Value Reference Range Interpretation Comments Neutrophils (%) (Auto) (test code = 95688-2) 63.8 38.7-80.0 [facility] WorthAutomated blood lymphocyte count as percentage ot total kkkzrduici2975-37-91 07:44:00* Test Item Value Reference Range Interpretation Comments Lymphocytes (%) (Auto) (test code = 736-9) 25.9 18.0-39.1 [facility] WorthAutomated blood monocyte count as percentage of total ditczbawik3084-11-93 07:44:00* Test Item Value Reference Range Interpretation Comments Monocytes (%) (Auto) (test code = 5905-5) 7.6 4.4-11.3 [facility] WorthAutomated blood eosinophil count as percentage of total ciztivdrny2874-07-60 07:44:00* Test Item Value Reference Range Interpretation Comments Eosinophils (%) (Auto) (test code = 713-8) 2.1 0.0-6.0 [facility] WorthAutomated blood basophil count as percentage of total biebfkikmy3096-29-00 07:44:00* Test Item Value Reference Range Interpretation Comments Basophils (%) (Auto) (test code = 706-2) 0.4 0.0-1.0 [facility] WorthFluoroscopic procedure less than one hour tbxjgowq5332-07-26 07:44:00* Test Item Value Reference Range Interpretation Comments IM GRANULOCYTES % (test code = IM GRANULOCYTES %) 0.2 0.0- 1.0 [facility] WorthAutomated blood neutrophil count 2020-02-21 07:44:00* Test Item Value Reference Range Interpretation Comments Neutrophils # (Auto) (test code = 751-8) 3.4 2.1-6.9 [facility] WorthBlood lymphocytes count (number/volume) 2020-02-21 07:44:00* Test Item Value Reference Range Interpretation Comments Lymphocytes # (Auto) (test code = 92590-3) 1.4 1.0-3.2 [facility]Bl[facility] monocytes automated count (number/volume)2020-02-21 07:44:00* Test Item Value Reference Range Interpretation Comments Monocytes # (Auto) (test code = 742-7) 0.4 0.2-0.8 [facility] WorthAutomated blood eosinophil count 2020-02-21 07:44:00* Test Item Value Reference Range Interpretation Comments Eosinophils # (Auto) (test code = 711-2) 0.1 0.0-0.4 [facility] WorthAutomated blood basophil count (count/volume)2020-02-21 07:44:00* Test Item Value Reference Range Interpretation Comments Basophils # (Auto) (test code = 704-7) 0.0 0.0-0.1 [facility] WorthFluoroscopic procedure less than one hour qkcvmuyq0402-15-60 07:44:00* Test Item Value Reference Range Interpretation Comments Absolute Immature Granulocyte (auto (naty t code = Absolute Immature Granulocyte (auto) 0.01 0-0.1 [facility]er[facility] or plasma sodium measurement (moles/volume)2020-02-21 07:44:00* Test Item Value Reference Range Interpretation Comments Sodium Level (test code = 2951-2) 138 136-145 [facility]er[facility] or plasma potassium measurement (moles/volume)2020-02-21 07:44:00* Test Item Value Reference Range Interpretation Comments Potassium Level (test code = 2823-3) 4.0 3.5-5.1 [facility]er[facility] or plasma chloride measurement (moles/volume)2020-02-21 07:44:00* Test Item Value Reference Range Interpretation Comments Chloride Level (test code = 2075-0) 106 98-107 [facility]erum or plasma carbon dioxide, total measurement (moles/volume)2020-02-21 07:44:00* Test Item Value Reference Range Interpretation Comments Carbon Dioxide Level (test code = 2028-9) 20 22-29 [facility]er[facility] or plasma anion jxs0123-27-65 07:44:00* Test Item Value Reference Range Interpretation Comments Anion Gap (test code = 88217-7) 16.0 8-16 [facility]er[facility] plasma urea nitrogen measurement (mass/volume)2020-02-21 07:44:00* Test Item Value Reference Range Interpretation Comments Blood Urea Nitrogen (test code = 3094-0) 13 7-26 [facility]er[facility] or plasma creatinine measurement (mass/volume)2020-02-21 07:44:00* Test Item Value Reference Range Interpretation Comments Creatinine (test code = 2160-0) 0.99 0.72-1.25 [facility]erum or plasma urea nitrogen/creatinine mass dxrmv1301-59-46 07:44:00* Test Item Value Reference Range Interpretation Comments BUN/Creatinine Ratio (test code = 3097-3) 13 6-25 [facility] WorthEstimated glomerular filtration rate (GFR) rkxmzjqmuapxd1846-70-19 07:44:00* Test Item Value Reference Range Interpretation Comments Estimat Glomerular Filtration Rate (test code = 513028000) > 60 >60 Ranges were taken from the National Kidney Disease Education Program and the [place] [facility] Kid[facility] Foundation literature.Reference ranges:60 or greater: Jwpfap83-24 ( for 3 consecutive months): Chronic kidney disease 15 or less: Kidney failureTexas Health Southwest Fort WorthGlucose dawlqkzjjag9877-28-67 07:44:00* Test Item Value Reference Range Interpretation Comments Glucose Level (test code = HET7427) 269 74-118 [facility]er[facility] or plasma calcium measurement (mass/volume)2020-02-21 07:44:00* Test Item Value Reference Range Interpretation Comments Calcium Level (test code = 75459-9) 8.7 8.4-10.2 [facility] Hospitaler[facility] or plasma total bilirubin measurement (mass/volume)2020-02-21 07:44:00* Test Item Value Reference Range Interpretation Comments Total Bilirubin (test code = 1975-2) 0.6 0.2-1.2 [facility] WorthFluoroscopic procedure less than one hour nrmurspa8781-67-60 07:44:00* Test Item Value Reference Range Interpretation Comments Aspartate Amino Transf (AST/SGOT) (test code = Aspartate Amino Transf (AST/SGOT)) 20 5-34 [facility] Hospitalerum or plasma alanine aminotransferase measurement (enzymatic activity/volume)2020-02-21 07:44:00* Test Item Value Reference Range Interpretation Comments Alanine Aminotransferase (ALT/SGPT) (test code = 1742-6) 28 0-55 [facility] Hospitaler[facility] or plasma protein measurement (mass/volume)2020-02-21 07:44:00* Test Item Value Reference Range Interpretation Comments Total Protein (test code = 2885-2) 6.4 6.5-8.1 [facility] Hospitaler[facility] or plasma albumin measurement (mass/volume)2020-02-21 07:44:00* Test Item Value Reference Range Interpretation Comments Albumin (test code = 1751-7) 3.5 3.5-5.0 [facility] WorthPlasma globulin measurement (mass/volume) 2020-02-21 07:44:00* Test Item Value Reference Range Interpretation Comments Globulin (test code = 13855-9) 2.9 2.3-3.5 [facility]er[facility] or plasma albumin/globulin mass lamru3247-72-67 07:44:00* Test Item Value Reference Range Interpretation Comments Albumin/Globulin Ratio (test code = 1759-0) 1.2 0.8-2.0 [facility] Hospitaler[facility] or plasma alkaline phosphatase measurement (enzymatic activity/volume)2020-02-21 07:44:00* Test Item Value Reference Range Interpretation Comments Alkaline Phosphatase (test code = 6768-6) 69 40-150 [facility] leukocytes automated count (number/volume)2020-02-21 07:44:00* Test Item Value Reference Range Interpretation Comments White Blood Count (test code = 6690-2) 5.29 4.8-10.8 [facility] WorthBlood erythrocytes automated count (number/volume)2020-02-21 07:44:00* Test Item Value Reference Range Interpretation Comments Red Blood Count (test code = 789-8) 4.68 4.3-5.7 [facility] WorthBlood hemoglobin measurement (moles/volume)2020-02-21 07:44:00* Test Item Value Reference Range Interpretation Comments Hemoglobin (test code = 72395-2) 14.2 14.0-18.0 [facility] WorthAutomated blood hematocrit (volume fraction)2020-02-21 07:44:00* Test Item Value Reference Range Interpretation Comments Hematocrit (test code = 4544-3) 42.6 38.2-49.6 [facility] WorthAutomated erythrocyte mean corpuscular pcutgq2112-24-55 07:44:00* Test Item Value Reference Range Interpretation Comments Mean Corpuscular Volume (test code = 787-2) 91.0 81-99 [facility] WorthAutomated erythrocyte mean corpuscular hemoglobin (mass per erythrocyte)2020-02-21 07:44:00* Test Item Value Reference Range Interpretation Comments Mean Corpuscular Hemoglobin (test code = 785-6) 30.3 28-32 [facility] WorthAutomated erythrocyte mean corpuscular hemoglobin concentration measurement (mass/volume)2020-02-21 07:44:00* Test Item Value Reference Range Interpretation Comments Mean Corpuscular Hemoglobin Concent (test code = 786-4) 33.3 31-35 [facility] WorthRDW MckFk-Mnz2483-51-30 07:44:00* Test Item Value Reference Range Interpretation Comments Red Cell Distribution Width (test code = 93233-3) 12.7 11.7 -14.4 [facility] WorthAutomated blood platelet count (count/volume)2020-02-21 07:44:00* Test Item Value Reference Range Interpretation Comments Platelet Count (test code = 777-3) 147 140-360 [facility] WorthAutomated blood segmented neutrophil count as percentage of total nnzlsgjdqa8680-78-44 07:44:00* Test Item Value Reference Range Interpretation Comments Neutrophils (%) (Auto) (test code = 94018-3) 63.8 38.7-80.0 [facility] WorthAutomated blood lymphocyte count as percentage ot total zylbeaviig1747-49-49 07:44:00* Test Item Value Reference Range Interpretation Comments Lymphocytes (%) (Auto) (test code = 736-9) 25.9 18.0-39.1 [facility] WorthAutomated blood monocyte count as percentage of total vgrlcfsmit0559-67-61 07:44:00* Test Item Value Reference Range Interpretation Comments Monocytes (%) (Auto) (test code = 5905-5) 7.6 4.4-11.3 [facility] WorthAutomated blood eosinophil count as percentage of total wyfsdwdviz8926-61-52 07:44:00* Test Item Value Reference Range Interpretation Comments Eosinophils (%) (Auto) (test code = 713-8) 2.1 0.0-6.0 [facility] WorthAutomated blood basophil count as percentage of total ghumnvhxej2582-38-43 07:44:00* Test Item Value Reference Range Interpretation Comments Basophils (%) (Auto) (test code = 706-2) 0.4 0.0-1.0 [facility] WorthFluoroscopic procedure less than one hour rebussnd5761-41-77 07:44:00* Test Item Value Reference Range Interpretation Comments IM GRANULOCYTES % (test code = IM GRANULOCYTES %) 0.2 0.0- 1.0 [facility] WorthAutomated blood neutrophil count 2020-02-21 07:44:00* Test Item Value Reference Range Interpretation Comments Neutrophils # (Auto) (test code = 751-8) 3.4 2.1-6.9 [facility] WorthBlood lymphocytes count (number/volume) 2020-02-21 07:44:00* Test Item Value Reference Range Interpretation Comments Lymphocytes # (Auto) (test code = 23985-8) 1.4 1.0-3.2 [facility] WorthBlood monocytes automated count (number/volume)2020-02-21 07:44:00* Test Item Value Reference Range Interpretation Comments Monocytes # (Auto) (test code = 742-7) 0.4 0.2-0.8 [facility] WorthAutomated blood eosinophil count 2020-02-21 07:44:00* Test Item Value Reference Range Interpretation Comments Eosinophils # (Auto) (test code = 711-2) 0.1 0.0-0.4 [facility] WorthAutomated blood basophil count (count/volume)2020-02-21 07:44:00* Test Item Value Reference Range Interpretation Comments Basophils # (Auto) (test code = 704-7) 0.0 0.0-0.1 [facility] WorthFluoroscopic procedure less than one hour miaytufg6791-61-81 07:44:00* Test Item Value Reference Range Interpretation Comments Absolute Immature Granulocyte (auto (naty t code = Absolute Immature Granulocyte (auto) 0.01 0-0.1 [facility] sodium measurement (moles/volume)2020-02-21 07:44:00* Test Item Value Reference Range Interpretation Comments Sodium Level (test code = 2951-2) 138 136-145 [facility] potassium measurement (moles/volume)2020-02-21 07:44:00* Test Item Value Reference Range Interpretation Comments Potassium Level (test code = 2823-3) 4.0 3.5-5.1 [facility] chloride measurement (moles/volume)2020-02-21 07:44:00* Test Item Value Reference Range Interpretation Comments Chloride Level (test code = 2075-0) 106 98-107 [facility] carbon dioxide, total measurement (moles/volume)2020-02-21 07:44:00* Test Item Value Reference Range Interpretation Comments Carbon Dioxide Level (test code = 2028-9) 20 22-29 [facility] anion xya6500-54-02 07:44:00* Test Item Value Reference Range Interpretation Comments Anion Gap (test code = 28113-0) 16.0 8-16 [facility] urea nitrogen measurement (mass/volume)2020-02-21 07:44:00* Test Item Value Reference Range Interpretation Comments Blood Urea Nitrogen (test code = 3094-0) 13 7-26 [facility] creatinine measurement (mass/volume)2020-02-21 07:44:00* Test Item Value Reference Range Interpretation Comments Creatinine (test code = 2160-0) 0.99 0.72-1.25 [facility] plasma urea nitrogen/creatinine mass kwjrk7212-40-93 07:44:00* Test Item Value Reference Range Interpretation Comments BUN/Creatinine Ratio (test code = 3097-3) 13 6- [facility] WorthEstimated glomerular filtration rate (GFR) ldvkejhxwolia2864-12-34 07:44:00* Test Item Value Reference Range Interpretation Comments Estimat Glomerular Filtration Rate (test code = 850601015) > 60 >60 Ranges were taken from the National Kidney Disease Education Program and the [place] [facility] literature.Reference ranges:60 or greater: Dtytow73-68 ( for 3 consecutive months): Chronic kidney disease 15 or less: Kidney failureTexas Health Southwest Fort WorthGlucose wjjnvhjsiqh1312-45-91 07:44:00* Test Item Value Reference Range Interpretation Comments Glucose Level (test code = YFC5206) 269 74-118 [facility] calcium measurement (mass/volume)2020-02-21 07:44:00* Test Item Value Reference Range Interpretation Comments Calcium Level (test code = 04933-7) 8.7 8.4-10.2 [facility] plasma total bilirubin measurement (mass/volume)2020-02-21 07:44:00* Test Item Value Reference Range Interpretation Comments Total Bilirubin (test code = 1974-2) 0.6 0.2-1.2 [facility] WorthFluoroscopic procedure less than one hour jifpuoow0048-20-37 07:44:00* Test Item Value Reference Range Interpretation Comments Aspartate Amino Transf (AST/SGOT) (test code = Aspartate Amino Transf (AST/SGOT)) 20 5-34 [facility]er[facility] plasma alanine aminotransferase measurement (enzymatic activity/volume)2020-02-21 07:44:00* Test Item Value Reference Range Interpretation Comments Alanine Aminotransferase (ALT/SGPT) (test code = 1742-6) 28 0-55 [facility]er[facility] protein measurement (mass/volume)2020-02-21 07:44:00* Test Item Value Reference Range Interpretation Comments Total Protein (test code = 2885-2) 6.4 6.5-8.1 [facility] Hospitaler[facility] or plasma albumin measurement (mass/volume)2020-02-21 07:44:00* Test Item Value Reference Range Interpretation Comments Albumin (test code = 1751-7) 3.5 3.5-5.0 [facility] WorthPlasma globulin measurement (mass/volume) 2020-02-21 07:44:00* Test Item Value Reference Range Interpretation Comments Globulin (test code = 63399-0) 2.9 2.3-3.5 [facility]er[facility] albumin/globulin mass ccoia2334-03-52 07:44:00* Test Item Value Reference Range Interpretation Comments Albumin/Globulin Ratio (test code = 1759-0) 1.2 0.8-2.0 [facility] Hospitaler[facility] or plasma alkaline phosphatase measurement (enzymatic activity/volume)2020-02-21 07:44:00* Test Item Value Reference Range Interpretation Comments Alkaline Phosphatase (test code = 6768-6) 69 40-150 [facility]er[facility] plasma total bilirubin measurement (mass/volume)2020-02-21 07:44:00* Test Item Value Reference Range Interpretation Comments Total Bilirubin (test code = 1974-2) 0.6 0.2-1.2 [facility] WorthFluoroscopic procedure less than one hour levvngsw2519-46-12 07:44:00* Test Item Value Reference Range Interpretation Comments Aspartate Amino Transf (AST/SGOT) (test code = Aspartate Amino Transf (AST/SGOT)) 20 5-34 [facility]er[facility] plasma alanine aminotransferase measurement (enzymatic activity/volume)2020-02-21 07:44:00* Test Item Value Reference Range Interpretation Comments Alanine Aminotransferase (ALT/SGPT) (test code = 1742-6) 28 0-55 [facility]er[facility] plasma protein measurement (mass/volume)2020-02-21 07:44:00* Test Item Value Reference Range Interpretation Comments Total Protein (test code = 2885-2) 6.4 6.5-8.1 [facility]er[facility] plasma albumin measurement (mass/volume)2020-02-21 07:44:00* Test Item Value Reference Range Interpretation Comments Albumin (test code = 1751-7) 3.5 3.5-5.0 [facility] WorthPlasma globulin measurement (mass/volume) 2020-02-21 07:44:00* Test Item Value Reference Range Interpretation Comments Globulin (test code = 05280-4) 2.9 2.3-3.5 [facility]er[facility] plasma albumin/globulin mass zvoen5457-92-78 07:44:00* Test Item Value Reference Range Interpretation Comments Albumin/Globulin Ratio (test code = 1759-0) 1.2 0.8-2.0 [facility]er[facility] plasma alkaline phosphatase measurement (enzymatic activity/volume)2020-02-21 07:44:00* Test Item Value Reference Range Interpretation Comments Alkaline Phosphatase (test code = 6768-6) 69 40-150 [facility] WorthCHEST 2 QFJAS2075-23-96 06:03:00 [place] [address] Patient Name: HARMAN MUNIZ MR #: [id number] : 1950 Age/Sex: 68/M Req #: [id number] Adm Physician: Ordered by: JARRETT WATT MD Report #: [id number] Location: Room/Bed: Procedure: DX/CHEST 2 VIEWS Exam Date: 03/18/19 Exam Ti me: 0538 REPORT STATUS: Signed E XAMINATION: CHEST 2 VIEWS INDICATION: sob [id number] Y COMPARISON: 02/25/2019 FINDINGS: PA and lateral [...] acute thoracic abn ormality. Signed by: Dr. Duncan Turk MD on 03/18/2019 6:05 AM D ictated By: DUNCAN TURK MD 4 COPY TO: JARRETT WATT MD B-Type Natriuretic Lcrahnf1988-76-34 05:21:00* Test Item Value Reference Range Interpretation Comments B-Type Natriuretic Peptide (test code = 98244-1) < 10.0 0-100 [facility] WorthD-Dimer Quantitative (PE/DVT)2019-03-18 05:12:00* Test Item Value Reference Range Interpretation Comments D-Dimer Quantitative (PE/DVT) (test code = 99069-7) 0.39 0. 00-0.45 [facility] WorthCreatine Kinase QR5475-36-73 05:12:00* Test Item Value Reference Range Interpretation Comments Creatine Kinase MB (test code = 36799-2) 0.80 0-5.0 [facility] WorthTroponin G3051-94-27 05:12:00* Test Item Value Reference Range Interpretation Comments Troponin I (test code = GGJ4926) 0.005 0-0.300 [facility] Hospitalodium Fksix7419-40-03 05:11:00* Test Item Value Reference Range Interpretation Comments Sodium Level (test code = 2951-2) 137 136-145 [facility] WorthPotassium Igpct2599-15-04 05:11:00* Test Item Value Reference Range Interpretation Comments Potassium Level (test code = 2823-3) 4.4 3.5-5.1 [facility] WorthChloride Tlfak3473-64-31 05:11:00* Test Item Value Reference Range Interpretation Comments Chloride Level (test code = 2075-0) 100 98-107 [facility] WorthCarbon Dioxide Jxice7892-52-47 05:11:00* Test Item Value Reference Range Interpretation Comments Carbon Dioxide Level (test code = 2028-9) 28 22-29 [facility] WorthAnion Bur3653-40-51 05:11:00* Test Item Value Reference Range Interpretation Comments Anion Gap (test code = 17699-1) 13.4 8-16 [facility] WorthBlood Urea Sfbkwlrf6511-43-63 05:11:00* Test Item Value Reference Range Interpretation Comments Blood Urea Nitrogen (test code = 3094-0) 16 7-26 [facility] WorthCreatinine2019-09-25 05:11:00* Test Item Value Reference Range Interpretation Comments Creatinine (test code = 2160-0) 0.84 0.72-1.25 [facility] WorthBUN/Creatinine Ombnt1716-80-91 05:11:00* Test Item Value Reference Range Interpretation Comments BUN/Creatinine Ratio (test code = 3097-3) 19 6-25 [facility] WorthEstimat Glomerular Filtration Rate 2019-03-18 05:11:00* Test Item Value Reference Range Interpretation Comments Estimat Glomerular Filtration Rate (test code = 400841942) > 60 >60 Ranges were taken from the National Kidney Disease Education Program and the [place] [facility] Foundation literature.Reference ranges:60 or greater: Tglink93-45 ( for 3 consecutive months): Chronic kidney disease 15 or less: Kidney failureTexas Health Southwest Fort WorthGlucose Zoywo2142-54-26 05:11:00* Test Item Value Reference Range Interpretation Comments Glucose Level (test code = GSG5315) 137 74-118 H [facility] WorthCalcium Ymjsq4481-45-01 05:11:00* Test Item Value Reference Range Interpretation Comments Calcium Level (test code = 97301-7) 9.5 8.4-10.2 [facility] WorthTotal Wpfqoqpuy9084-03-75 05:11:00* Test Item Value Reference Range Interpretation Comments Total Bilirubin (test code = 1975-2) 0.8 0.2-1.2 [facility] WorthAspartate Amino Transf (AST/SGOT) 2019-03-18 05:11:00* Test Item Value Reference Range Interpretation Comments Aspartate Amino Transf (AST/SGOT) (test code = Aspartate Amino Transf (AST/SGOT)) 25 5-34 [facility] WorthAlanine Aminotransferase (ALT/SGPT) 2019-03-18 05:11:00* Test Item Value Reference Range Interpretation Comments Alanine Aminotransferase (ALT/SGPT) (test code = 1742-6) 29 0-55 [facility] WorthTotal Aivjbdv3846-99-53 05:11:00* Test Item Value Reference Range Interpretation Comments Total Protein (test code = 2885-2) 6.6 6.5-8.1 [facility] WorthAlbumin2019-09-25 05:11:00* Test Item Value Reference Range Interpretation Comments Albumin (test code = 1751-7) 3.5 3.5-5.0 [facility] WorthGlobulin2019-09-25 05:11:00* Test Item Value Reference Range Interpretation Comments Globulin (test code = 98958-1) 3.1 2.3-3.5 [facility] WorthAlbumin/Globulin Yglyz9941-62-12 05:11:00 * Test Item Value Reference Range Interpretation Comments Albumin/Globulin Ratio (test code = 1759-0) 1.1 0.8-2.0 [facility] WorthAlkaline Llxyocoebfj4641-94-74 05:11:00* Test Item Value Reference Range Interpretation Comments Alkaline Phosphatase (test code = 6768-6) 86 40-150 [facility] WorthCreatine Kazfks2827-39-50 05:11:00* Test Item Value Reference Range Interpretation Comments Creatine Kinase (test code = 2157-6) 52 30-200 [facility] WorthWhite Blood Gyhwe8511-63-46 04:48:00* Test Item Value Reference Range Interpretation Comments White Blood Count (test code = 6690-2) 5.82 4.8-10.8 [facility] WorthRed Blood Ktwou6753-29-81 04:48:00* Test Item Value Reference Range Interpretation Comments Red Blood Count (test code = 789-8) 4.71 4.3-5.7 [facility] WorthHemoglobin2019-09-25 04:48:00* Test Item Value Reference Range Interpretation Comments Hemoglobin (test code = 91900-6) 14.5 14.0-18.0 [facility] WorthHematocrit2019-09-25 04:48:00* Test Item Value Reference Range Interpretation Comments Hematocrit (test code = 4544-3) 42.5 38.2-49.6 [facility] WorthMean Corpuscular Dlqbjh2011-24-78 04:48:00* Test Item Value Reference Range Interpretation Comments Mean Corpuscular Volume (test code = 787-2) 90.2 81-99 [facility] WorthMean Corpuscular Ydppgevrrw5343-69-70 04:48:00* Test Item Value Reference Range Interpretation Comments Mean Corpuscular Hemoglobin (test code = 785-6) 30.8 28-32 [facility] WorthMean Corpuscular Hemoglobin Concent 2019-03-18 04:48:00* Test Item Value Reference Range Interpretation Comments Mean Corpuscular Hemoglobin Concent (test code = 786-4) 34.1 31-35 [facility] WorthRed Cell Distribution Kidca6110-29-42 04:48:00* Test Item Value Reference Range Interpretation Comments Red Cell Distribution Width (test code = 24758-6) 11.9 11.7 -14.4 [facility] WorthPlatelet Drefx5928-60-54 04:48:00* Test Item Value Reference Range Interpretation Comments Platelet Count (test code = 777-3) 225 140-360 [facility] WorthNeutrophils (%) (Auto)2019-03-18 04:48:00 * Test Item Value Reference Range Interpretation Comments Neutrophils (%) (Auto) (test code = 13764-1) 46.7 38.7-80.0 [facility] WorthLymphocytes (%) (Auto)2019-03-18 04:48:00 * Test Item Value Reference Range Interpretation Comments Lymphocytes (%) (Auto) (test code = 736-9) 39.2 18.0-39.1 H [facility] WorthMonocytes (%) (Auto)2019-03-18 04:48:00* Test Item Value Reference Range Interpretation Comments Monocytes (%) (Auto) (test code = 5905-5) 9.8 4.4-11.3 [facility] WorthEosinophils (%) (Auto)2019-03-18 04:48:00 * Test Item Value Reference Range Interpretation Comments Eosinophils (%) (Auto) (test code = 713-8) 3.3 0.0-6.0 [facility] WorthBasophils (%) (Auto)2019-03-18 04:48:00* Test Item Value Reference Range Interpretation Comments Basophils (%) (Auto) (test code = 706-2) 0.7 0.0-1.0 [facility] WorthIM GRANULOCYTES %2019-03-18 04:48:00* Test Item Value Reference Range Interpretation Comments IM GRANULOCYTES % (test code = IM GRANULOCYTES %) 0.3 0.0- 1.0 [facility] WorthNeutrophils # (Auto)2019-03-18 04:48:00* Test Item Value Reference Range Interpretation Comments Neutrophils # (Auto) (test code = 751-8) 2.7 2.1-6.9 [facility] WorthLymphocytes # (Auto)2019-03-18 04:48:00* Test Item Value Reference Range Interpretation Comments Lymphocytes # (Auto) (test code = 14048-7) 2.3 1.0-3.2 [facility] WorthMonocytes # (Auto)2019-03-18 04:48:00* Test Item Value Reference Range Interpretation Comments Monocytes # (Auto) (test code = 742-7) 0.6 0.2-0.8 [facility] WorthEosinophils # (Auto)2019-03-18 04:48:00* Test Item Value Reference Range Interpretation Comments Eosinophils # (Auto) (test code = 711-2) 0.2 0.0-0.4 [facility] WorthBasophils # (Auto)2019-03-18 04:48:00* Test Item Value Reference Range Interpretation Comments Basophils # (Auto) (test code = 704-7) 0.0 0.0-0.1 [facility] WorthAbsolute Immature Granulocyte (auto 2019-03-18 04:48:00* Test Item Value Reference Range Interpretation Comments Absolute Immature Granulocyte (auto (naty t code = Absolute Immature Granulocyte (auto) 0.02 0-0.1 [facility] WorthB-Type Natriuretic Dzqtjli7066-42-00 04:34:00* Test Item Value Reference Range Interpretation Comments B-Type Natriuretic Peptide (test code = 30097-0) < 10.0 0-100 [facility] WorthCreatine Kinase IX9653-86-68 04:21:00* Test Item Value Reference Range Interpretation Comments Creatine Kinase MB (test code = 18124-2) 0.30 0-5.0 [facility] WorthTroponin D5052-55-60 04:21:00* Test Item Value Reference Range Interpretation Comments Troponin I (test code = OMB6874) < 0.001 0-0.300 [facility]odium Ygbxu5444-60-26 04:13:00* Test Item Value Reference Range Interpretation Comments Sodium Level (test code = 2951-2) 137 136-145 [facility] WorthPotassium Dewaz8277-74-88 04:13:00* Test Item Value Reference Range Interpretation Comments Potassium Level (test code = 2823-3) 3.6 3.5-5.1 [facility] WorthChloride Dtjag8958-19-93 04:13:00* Test Item Value Reference Range Interpretation Comments Chloride Level (test code = 2075-0) 100 98-107 [facility] WorthCarbon Dioxide Njsou9119-60-67 04:13:00* Test Item Value Reference Range Interpretation Comments Carbon Dioxide Level (test code = 2028-9) 27 22-29 [facility] WorthAnion Rvz6827-41-38 04:13:00* Test Item Value Reference Range Interpretation Comments Anion Gap (test code = 65454-0) 13.6 8-16 [facility] WorthBlood Urea Bbswvijv5091-13-03 04:13:00* Test Item Value Reference Range Interpretation Comments Blood Urea Nitrogen (test code = 3094-0) 10 7-26 [facility] WorthCreatinine2019-09-04 04:13:00* Test Item Value Reference Range Interpretation Comments Creatinine (test code = 2160-0) 0.81 0.72-1.25 [facility] WorthBUN/Creatinine Jqwbs2465-92-29 04:13:00* Test Item Value Reference Range Interpretation Comments BUN/Creatinine Ratio (test code = 3097-3) 12 6-25 [facility] WorthEstimat Glomerular Filtration Rate 2019-02-25 04:13:00* Test Item Value Reference Range Interpretation Comments Estimat Glomerular Filtration Rate (test code = 680974563) > 60 >60 Ranges were taken from the National Kidney Disease Education Program and the [place] [facility] Foundation literature.Reference ranges:60 or greater: Ckvxql27-53 ( for 3 consecutive months): Chronic kidney disease 15 or less: Kidney failureTexas Health Southwest Fort WorthGlucose Mzslv3396-89-97 04:13:00* Test Item Value Reference Range Interpretation Comments Glucose Level (test code = VAR1326) 142 74-118 H [facility] WorthCalcium Cadof9921-23-00 04:13:00* Test Item Value Reference Range Interpretation Comments Calcium Level (test code = 65223-5) 10.3 8.4-10.2 H [facility] WorthTotal Hefsfcxjt2232-44-59 04:13:00* Test Item Value Reference Range Interpretation Comments Total Bilirubin (test code = 1975-2) 0.9 0.2-1.2 [facility] WorthAspartate Amino Transf (AST/SGOT) 2019-02-25 04:13:00* Test Item Value Reference Range Interpretation Comments Aspartate Amino Transf (AST/SGOT) (test code = Aspartate Amino Transf (AST/SGOT)) 19 5-34 [facility] WorthAlanine Aminotransferase (ALT/SGPT) 2019-02-25 04:13:00* Test Item Value Reference Range Interpretation Comments Alanine Aminotransferase (ALT/SGPT) (test code = 1742-6) 24 0-55 [facility] WorthTotal Pdufpcv2019-95-13 04:13:00* Test Item Value Reference Range Interpretation Comments Total Protein (test code = 2885-2) 6.9 6.5-8.1 [facility] WorthAlbumin2019-09-04 04:13:00* Test Item Value Reference Range Interpretation Comments Albumin (test code = 1751-7) 3.8 3.5-5.0 [facility] WorthGlobulin2019-09-04 04:13:00* Test Item Value Reference Range Interpretation Comments Globulin (test code = 39774-4) 3.1 2.3-3.5 [facility] WorthAlbumin/Globulin Rrnvw3278-06-33 04:13:00 * Test Item Value Reference Range Interpretation Comments Albumin/Globulin Ratio (test code = 1759-0) 1.2 0.8-2.0 [facility] WorthAlkaline Qauoavpskux7689-53-18 04:13:00* Test Item Value Reference Range Interpretation Comments Alkaline Phosphatase (test code = 6768-6) 89 40-150 [facility] WorthCreatine Vbysun1165-17-08 04:13:00* Test Item Value Reference Range Interpretation Comments Creatine Kinase (test code = 2157-6) 91 30-200 [facility] ([facility]/DVT)2019-02-25 04:05:00* Test Item Value Reference Range Interpretation Comments D-Dimer Quantitative (PE/DVT) (test code = 70183-2) 0.44 0. 00-0.45 [facility] HospitalCHEST SINGLE (PORTABLE)2019-02-25 03:53:00 [facility] [address] [place] [address] Patient Name: HARMAN MUNIZ MR #: [id number] : 1950 Age/Sex: 68/M Req #: [id number] Adm Physician: Ordered by: JARRETT WATT MD Report #: [id number] Location: ER Room/Bed: Procedure: DX/CHEST SINGLE (PORTABLE) Exam Date: 02/25/19 Exam Time: 0325 REPORT STATUS: S igned EXAMINATION: CHEST SINGLE (PORTABLE) COMPARISON: None IN DICATION: SOB [id number] Y DISCUSSION: Frontal view of the [...] COPY TO: JARRETT WATT MD White Blood Lvzqe6719-48-92 03:50:00* Test Item Value Reference Range Interpretation Comments White Blood Count (test code = 6690-2) 4.80 4.8-10.8 [facility] WorthRed Blood Vssco4338-47-75 03:50:00* Test Item Value Reference Range Interpretation Comments Red Blood Count (test code = 789-8) 4.69 4.3-5.7 [facility] WorthHemoglobin2019-09-04 03:50:00* Test Item Value Reference Range Interpretation Comments Hemoglobin (test code = 57813-8) 14.7 14.0-18.0 [facility] WorthHematocrit2019-09-04 03:50:00* Test Item Value Reference Range Interpretation Comments Hematocrit (test code = 4544-3) 41.9 38.2-49.6 [facility] WorthMean Corpuscular Oyhlua3910-43-70 03:50:00* Test Item Value Reference Range Interpretation Comments Mean Corpuscular Volume (test code = 787-2) 89.3 81-99 [facility] WorthMean Corpuscular Tudaftngwg7894-55-95 03:50:00* Test Item Value Reference Range Interpretation Comments Mean Corpuscular Hemoglobin (test code = 785-6) 31.3 28-32 [facility] WorthMean Corpuscular Hemoglobin Concent 2019-02-25 03:50:00* Test Item Value Reference Range Interpretation Comments Mean Corpuscular Hemoglobin Concent (test code = 786-4) 35.1 31-35 H [facility] WorthRed Cell Distribution Izuie5295-92-96 03:50:00* Test Item Value Reference Range Interpretation Comments Red Cell Distribution Width (test code = 19081-9) 12.0 11.7 -14.4 [facility] WorthPlatelet Qvgaf6453-62-78 03:50:00* Test Item Value Reference Range Interpretation Comments Platelet Count (test code = 777-3) 190 140-360 [facility] WorthNeutrophils (%) (Auto)2019-02-25 03:50:00 * Test Item Value Reference Range Interpretation Comments Neutrophils (%) (Auto) (test code = 85282-1) 50.5 38.7-80.0 [facility] WorthLymphocytes (%) (Auto)2019-02-25 03:50:00 * Test Item Value Reference Range Interpretation Comments Lymphocytes (%) (Auto) (test code = 736-9) 35.4 18.0-39.1 [facility] WorthMonocytes (%) (Auto)2019-02-25 03:50:00* Test Item Value Reference Range Interpretation Comments Monocytes (%) (Auto) (test code = 5905-5) 9.4 4.4-11.3 [facility] WorthEosinophils (%) (Auto)2019-02-25 03:50:00 * Test Item Value Reference Range Interpretation Comments Eosinophils (%) (Auto) (test code = 713-8) 3.5 0.0-6.0 [facility] WorthBasophils (%) (Auto)2019-02-25 03:50:00* Test Item Value Reference Range Interpretation Comments Basophils (%) (Auto) (test code = 706-2) 0.6 0.0-1.0 [facility] WorthIM GRANULOCYTES %2019-02-25 03:50:00* Test Item Value Reference Range Interpretation Comments IM GRANULOCYTES % (test code = IM GRANULOCYTES %) 0.6 0.0- 1.0 [facility] WorthNeutrophils # (Auto)2019-02-25 03:50:00* Test Item Value Reference Range Interpretation Comments Neutrophils # (Auto) (test code = 751-8) 2.4 2.1-6.9 [facility] WorthLymphocytes # (Auto)2019-02-25 03:50:00* Test Item Value Reference Range Interpretation Comments Lymphocytes # (Auto) (test code = 42962-6) 1.7 1.0-3.2 [facility] WorthMonocytes # (Auto)2019-02-25 03:50:00* Test Item Value Reference Range Interpretation Comments Monocytes # (Auto) (test code = 742-7) 0.5 0.2-0.8 [facility] WorthEosinophils # (Auto)2019-02-25 03:50:00* Test Item Value Reference Range Interpretation Comments Eosinophils # (Auto) (test code = 711-2) 0.2 0.0-0.4 [facility] WorthBasophils # (Auto)2019-02-25 03:50:00* Test Item Value Reference Range Interpretation Comments Basophils # (Auto) (test code = 704-7) 0.0 0.0-0.1 [facility] WorthAbsolute Immature Granulocyte (auto 2019-02-25 03:50:00* Test Item Value Reference Range Interpretation Comments Absolute Immature Granulocyte (auto (naty t code = Absolute Immature Granulocyte (auto) 0.03 0-0.1 [facility]- XR SPINE 1 V SPEC [id number] 09:53:00Patient Name: HARMAN MAIN Unit No: [id number] EXAMS: CPT CODE: [id number] XR SPINE 1 V SPEC LEVEL [id number] Examination: Single lateral intraoperative view of the [...] Dt/Tm: 02/07/2019 (0953) by:[email or web address] Printed Date/Time: 02/07/2019 (2456) Name: HARMAN MAIN [facility] Phys: Tank Reyes MD [address] : 1950 Age: 68 Sex: [place] [address] Loc: P.0575 1 Exam Date: 02/05/2019 Status: ADM IN PH: FAX: PAGE 1 Signed Report SURGICAL [id number] 16:56:00 RUN DATE: 02/06/19 Maria Eugenia GARG *LIVE* PAGE 1 RUN TIME: 1656 Specimen Inqui ry RUN USER: INTERFACE PATIENT: HARMAN MAIN ACCT #: [id number] LOC: P.5N POD B U #: [id number] AGE/SX: 68/M ROOM: [facility] RE02/05/[facility] DR: Tank Ramsey MD : 50 BED: 1 DIS: STATUS: ADM Richard TLOC: SPEC #: [id number] RECD: 02/05/19 STATUS: PETE REQ #: [id number] ROMINA: 02/05/19 [facility] DR: Tank Ramsey MD ENTERED: 08/15/19-1320 SP TYPE: SURG OTHR DR: Karely Garrett MD ORDERED: PATHGM3, PATH SPEC, DECAL, [...] in aggregate. No discrete lesions are seen. [employer] Finisher sections are submitted in a single cassette. ARC CUTTER/eb MICROSCOPIC DESCRIPTION No malignancy is identified. Signed SIGNATURE ON FILE Scottie Yoonese 02/06/19 1656 END OF REPORT PROTHROMBIN [id number] 11:14:00* Test Item Value Reference Range Interpretation [...] heart valves; 2.5-3.5recurrent systemic embolism. THROMBOPLASTIN TIME [id number] 11:14:00* Test Item Value Reference Range Interpretation Comments THROMBOPLASTIN TIME PARTIAL (test code = PTT) 33.0 SECONDS 26.0-35. 9 N INTERPRETATIVE DATA:Therapeutic range: Unfractionated heparin:47 - 71 seconds Argatroban:1.5 to 3 times the baseline PTT COMPREHENSIVE METABOLIC [id number] 10:54:00* Test Item Value Reference Range Interpretation [...] CHD)40-59mg/dL: Borderline Risk LDL Cholesterol<100mg/dL: Desirable LDL-C ibheabruixjdl402-709ej/dL: Borderline High Risk LDL-C qyuajehsthhck326-231gr/dL: High risk LDL-C concentration HDL-LDL Cholesterol is affected by a number of factors suchas smoking, age and sex.~~~~~~~~~~~~~~~~~~~~~~~~~~~~~~~~~~~~~~~~~~~~~~~~~~~~~~~~~~~~ URINALYSIS [id number] 10:49:00* Test Item Value Reference Range Interpretation [...] = LEUU) NEGATIVE NEGA TIVE CBC W/AUTO [id number] 10:48:00* Test Item Value Reference Range Interpretation [...] x10 3/uL 0.0-0.20 N MRI SPINE LUMBAR [id number] 08:32:00 [place] [address] Patient Name: HARMAN MUNIZ MR #: [id number] : 1950 Age/Sex: 67/M Req #: [id number] Adm Physician: Ordered by: MIHAELA BALLARD MD Report #: [id number] Location: MRI Room/Bed: Procedure: MRI/MRI SPINE LUMBAR WO Exam Date: 08/19/18 [...]
[2020-03-28 00:24] LABS: BASOPHILS % 0.5 % (0.0-1.0); EOSINOPHILS # (AUTO) 0.2 (0.0-0.4); HEMATOCRIT 42.1 % (38.2-49.6); HEMOGLOBIN 14.3 g/dL (14.0-18.0); LYMPHOCYTES # (AUTO) 1.7 (1.0-3.2); LYMPHOCYTES % 31.4 % (18.0-39.1); MEAN CORPUSCULAR HEMOGLOBIN 30.8 pg (28-32); MEAN CORPUSCULAR VOLUME 90.5 fL (81-99); MONOCYTES # (AUTO) 0.5 (0.2-0.8); MONOCYTES % 9.4 % (4.4-11.3); NEUTROPHILS % 54.5 % (38.7-80.0); PLATELET COUNT 206 x10e3/uL (140-360); RED BLOOD COUNT 4.65 x10e6/uL (4.3-5.7); RED CELL DISTRIBUTION WIDTH 12.5 % (11.7-14.4)
[2020-03-28 00:30] LABS: ALANINE AMINOTRANSFERASE 22 IU/L (0-55); ALBUMIN 3.8 g/dL (3.5-5.0); ALBUMIN/GLOBULIN RATIO 1.2 (0.8-2.0); ALKALINE PHOSPHATASE 86 IU/L (40-150); ANION GAP 12.9 mmol/L (8-16); BLOOD UREA NITROGEN 11 mg/dL (7-26); BUN/CREATININE RATIO 13 (6-25); CALCIUM 9.4 mg/dL (8.4-10.2); CARBON DIOXIDE 27 mmol/L (22-29); CHLORIDE 106 mmol/L (98-107); CREATINE KINASE 37 IU/L (30-200); CREATININE, SERUM 0.88 mg/dL (0.72-1.25); EST GLOMERULAR FILTRATION RATE > 60 ML/MIN (60-); GLUCOSE 113 mg/dL (74-118); POTASSIUM 3.9 mmol/L (3.5-5.1); SODIUM 142 mmol/L (136-145)
[2020-03-28] MEDS ORDERED: IOPAMIDOL 370 MG/ML 200 ML INFUS..BTL INJ ONE (00:53)
[2020-03-28] MEDS ORDERED: SODIUM CHLORIDE 0.9% 50ML 50 ML ONE (00:53)
[2020-03-28 01:15] LABS: BACTERIA,URINE FEW /HPF; CLARITY,URINE CLEAR (CLEAR); COLOR,URINE YELLOW (YELLOW); EPITHELIAL CELLS,URINE FEW /LPF; LEUKOCYTE ESTERASE ,URINE NEGATIVE (NEGATIVE); MUCUS,URINE MANY (RARE); NITRITE,URINE NEGATIVE (NEGATIVE); PROTEIN,URINE DIPSTICK NEGATIVE (NEGATIVE); RBC,URINE 0-5 /HPF (0-5); WBC,URINE (MAN) 0-5 /HPF (0-5)
[2020-03-28 01:16] LABS: BILIRUBIN,URINE NEGATIVE (NEGATIVE); KETONES,URINE TRACE (NEGATIVE); URINE UROBILINOGEN 0.2 mg/dL (0.2 - 1)
--- NOTE | 2020-03-28 01:55 | Diagnostic Imaging Report ---
EXAM: CT Abdomen and Pelvis WITH contrast INDICATION: Lower abdominal pain COMPARISON: None. TECHNIQUE: Abdomen and pelvis were scanned utilizing a multidetector helical scanner from the lung base to the pubic symphysis after administration of IV contrast. Coronal and sagittal reformations were obtained. Routine protocol was performed. Scan was performed when during portal venous phase. IV CONTRAST: 100 mL of Isovue 370 ORAL CONTRAST: None COMPLICATIONS: None RADIATION DOSE: Total DLP: 545 mGy*cm Estimated effective dose: (DLP x 0.015 x size factor) mSv CTDIvol has been reviewed. It is below the limits set by the Radiation Protocol Committee (RPC). Dose modulation, iterative reconstruction, and/or weight based adjustment of the mA/kV was utilized to reduce the radiation dose to as low as reasonably achievable. FINDINGS: LINES and TUBES: None. LOWER THORAX: Aortic valve calcifications. HEPATOBILIARY: A few small hepatic cysts. No suspicious focal hepatic lesions. No biliary ductal dilation. GALLBLADDER: No radio-opaque stones or sludge. No wall thickening. SPLEEN: No splenomegaly. PANCREAS: There is fatty infiltration of the pancreas. ADRENALS: No adrenal nodules KIDNEYS/URETERS: Kidneys enhance symmetrically. No hydronephrosis. No cystic or solid mass lesions. No stones. GI TRACT: No abnormal distention, wall thickening, or evidence of bowel obstruction. Small second segment duodenal diverticulum. Appendix is normal. PELVIC ORGANS/BLADDER: Unremarkable. LYMPH NODES: No lymphadenopathy. VESSELS: Arterial calcifications. PERITONEUM / RETROPERITONEUM: No free air or fluid. BONES: Degenerative changes. Healing nondisplaced rib fractures. SOFT TISSUES: Surgical changes of inguinal hernia repair.. IMPRESSION: 1. No acute CT abnormality in the abdomen or pelvis. 2. Calcific aortic valve disease. Signed by: Lion Laura DO on 03/28/2020 1:52 AM
--- NOTE | 2020-03-28 01:57 | Diagnostic Imaging Report ---
EXAMINATION: CHEST SINGLE (PORTABLE) INDICATION: Short of breath COMPARISON: Same day abdominal CT; chest x-ray 02/25/2020 FINDINGS: TUBES and LINES: None. LUNGS: Normal lung volumes. Lungs are clear. No consolidations. PLEURA: No pleural effusion or pneumothorax. HEART AND MEDIASTINUM: Cardiac size is borderline enlarged. BONES AND SOFT TISSUES: No acute osseous lesion. Soft tissues are unremarkable. UPPER ABDOMEN: No free air under the diaphragm. IMPRESSION: Borderline cardiomegaly. Signed by: Lion Laura DO on 03/28/2020 1:53 AM
[2020-03-28 02:00] VITALS: BP 127/74
== END 2020-03-28 02:11 | disposition home or self-care (01) ==
LOC: ER 23:29
DX: R06.00 Dyspnea, unspecified (principal); R10.30 Lower abdominal pain, unspecified; I35.9 Nonrheumatic aortic valve disorder, unspecified
CPT/HCPCS: 36415; 71045; 74177; 80053; 81001; 82550; 82553; 83880; 84484; 85025; 85379; 93005; 99284; J7040; Q9967

== ENCOUNTER → 2020-04-22 | Day surgery (SDC) | payer MEDICARE, OTHER ==
[2020-04-19 16:20] LABS: BASOPHILS % 0.6 % (0.0-1.0); EOSINOPHILS # (AUTO) 0.1 (0.0-0.4); EOSINOPHILS % 1.1 % (0.0-6.0); HEMATOCRIT 43.5 % (38.2-49.6); HEMOGLOBIN 14.4 g/dL (14.0-18.0); LYMPHOCYTES # (AUTO) 1.3 (1.0-3.2); MEAN CORPUSCULAR HEMOGLOBIN 29.9 pg (28-32); MEAN CORPUSCULAR HGB CONC 33.1 g/dL (31-35); MEAN CORPUSCULAR VOLUME 90.2 fL (81-99); MONOCYTES # (AUTO) 0.4 (0.2-0.8); MONOCYTES % 7.5 % (4.4-11.3); NEUTROPHILS # (AUTO) 3.5 (2.1-6.9); NEUTROPHILS % 65.6 % (38.7-80.0); PLATELET COUNT 213 x10e3/uL (140-360); RED BLOOD COUNT 4.82 x10e6/uL (4.3-5.7); RED CELL DISTRIBUTION WIDTH 12.2 % (11.7-14.4)
[~2020-04-22] MED LIST changes: +CLONAZEPAM1 MG PO; +HYOSCYAMINE 0.125 MG TAB ONE; +KETAMINE HCL INJ 50 MG/ML 10 ML VIAL ONE; +LIDOCAINE HCL 2% LOCAL INJ 5 ML SDV VIAL INJ ONE; +MIDAZOLAM HCL 2 MG/2 ML VIAL ONE; +ONDANSETRON ODT8 MG PO; +PROPOFOL IV EMULSION 10 MG/ML 20 ML VIAL ONE; +SERTRALINE HCL50 MG PO
[2020-04-22 18:05] VITALS: BP 146/84
== END | disposition home or self-care (01) ==
LOC: OR 12:09
PROVIDERS: ATTEND Internal Medicine Gastroenterology
DX: K29.70 Gastritis, unspecified, without bleeding (principal); D12.3 Benign neoplasm of transverse colon; D12.8 Benign neoplasm of rectum; B96.81 Helicobacter pylori [H. pylori] as the cause of diseases classified elsewhere; K26.9 Duodenal ulcer, unspecified as acute or chronic, without hemorrhage or perforation; K21.00 Gastro-esophageal reflux disease with esophagitis, without bleeding; K59.00 Constipation, unspecified; K57.30 Diverticulosis of large intestine without perforation or abscess without bleeding; K64.8 Other hemorrhoids; I10 Essential (primary) hypertension; R00.1 Bradycardia, unspecified; F41.9 Anxiety disorder, unspecified; Z01.810 Encounter for preprocedural cardiovascular examination; Z01.812 Encounter for preprocedural laboratory examination; Z11.59 Encounter for screening for other viral diseases
CPT/HCPCS: 36415; 43239; 45384; 45385; 85025; 93005; J2001; J2250; J2704; U0002; 45378